=== PATIENT | female | born 1995 | race Caucasian/White ===

== ENCOUNTER 2023-07-25 20:59 | Outpatient (REF) | payer BC, SELFPAY ==
[2023-07-31 12:09] LABS: Age Gdln ACOG Testing Note (.); IGP, rfx Aptima HPV ASCU Note (.)
== END 2023-07-25 21:00 | disposition home or self-care (01) ==
LOC: LAB 20:59
PROVIDERS: Visit Provider Obstetrics & Gynecology
DX: Z01.419 Encounter for gynecological examination (general) (routine) without abnormal findings (principal)
CPT/HCPCS: G0145

== ENCOUNTER 2023-10-12 17:57 | Emergency (ER) | payer BC, SELFPAY ==
[2023-10-12 18:04] VITALS: BP 112/82; PULSE 73; RESP 16; TEMP 37.2; O2SAT 100; BMI 28.3
--- OUTSIDE RECORDS SUMMARY | 2023-10-12 18:07 | XMS_ITS | CCD ---
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 [facility] [address] [place] [id number] [place] Calcium [Mass/volume] in Ser um or PlasmaOrdered By: Debra Koenig on 03-15-2023 Calcium [Mass/Vol] 9.5 mg/dL Normal 8.6-10.3 [facility] Comment on above: Order Comment: Reaso n for Exam Fatigue NOT FASTING .JKW Performed By: #### B 12, FE PRO, [id number], CMP #### [facility] [address] [id number] [facility] Carbon dioxide, total [Moles /volume] in Serum or PlasmaOrdered By: Debra Koenig on 03-15-2023 CO2 [Moles/Vol] 28.8 mmol/L Normal 21.0-31.0 [facility] Comment on above: Order Comment: Reaso n for Exam Fatigue NOT FASTING .JKW Performed By: #### B 12, FE PRO, [id number], CMP #### [facility] [address] [place] [id number] [place] Chloride [Moles/volume] in S sherri or PlasmaOrdered By: Debra Koenig on 03-15-2023 Chloride [Moles/Vol] 107 mmol/L Normal 98-107 [facility] Comment on above: Order Comment: Reaso n for Exam Fatigue NOT FASTING .JKW Performed By: #### B 12, FE PRO, [id number], CMP #### [facility] [address] [place] [id number] [facility] Comprehensive Metabolic Pane trevin 03-15-2023 Albumin [Mass/Vol] 4.542462 g/dL Normal 3.5-5.7 g/dL N [facility] [employer]MP[employer] Other Bilirubin [Mass/Vol] 0.1607499 mg/dL Normal 0.3- 1.0 mg/dL Clint CMP.LY Other Calcium [Mass/Vol] 9.2165945 mg/dL Normal 8.6-10 .3 mg/dL Clint CMP.LY Other CO2 [Moles/Vol] 28.01893682 mmol/L Normal 21.0-3 1.0 mmol/L Clint CMP.LY Other Creatinine [Mass/Vol] 0.58140686 mg/dL Normal 0. 60-1.20 mg/dL Clint CMP.LY Other GFR/1.73 sq M.predicted MDRD (S/P/Bld) [Vol rate/Area] mL/min/{1.73_m2} Normal Clint CMP[facility]LY Other Comment on above: Order Comment: Reaso n for Exam Fatigue NOT FASTING .JKW Performed By: #### B 12, FE PRO, [id number], CMP #### [facility] [address] [place] [address] [facility] Potassium [Moles/Vol] 4.82964122 mmol/L Normal 3 .5-5.1 mmol/L Clint CMP[facility]LY Other Protein [Mass/Vol] 6.004507 g/dL Normal 6.4-8.9 g/dL N [facility] [employer] Other Comprehensive Metabolic Panel 2.1 g/dL Clint CMP.LY Other Albumin [Mass/Vol] 4.7 g/dL Normal 3.5-5.7 [facility] Comment on above: Order Comment: Reaso n for Exam Fatigue NOT FASTING .JKW Performed By: #### B 12, FE PRO, [id number], CMP #### [facility] [address] [place] [address] [place] Creatinine [Mass/volume] in Serum or PlasmaOrdered By: Debra Koenig on 03-15-2023 Creatinine [Mass/Vol] 0.60 mg/dL Normal 0.60-1.20 [facility] Comment on above: Order Comment: Reaso n for Exam Fatigue NOT FASTING .JKW Performed By: #### B 12, FE PRO, [id number], CMP #### [facility] [address] [place] [address] [place] FE PROon 03-15-2023 Ferritin [Mass/Vol] 50.6322552 ng/mL Normal 11.0 -306.8 ng/mL [facility] [employer] Other FE PRO 437 ug/dL Normal 255-450 ug/dL [facility] [employer] Other FE PRO 11.9 % Low 20-50 % [facility] [employer] Other % Iron Saturation 11.9 % Low 20-50 [facility] Comment on above: Order Comment: Reaso n for Exam Fatigue NOT FASTING .JKW Performed By: #### B 12, FE PRO, [id number], CMP #### [facility] [address] [place] [address] [facility] Total Iron Binding Capacity 437 ug/dL Normal 255-450 [facility] Comment on above: Order Comment: Reaso n for Exam Fatigue NOT FASTING .JKW Performed By: #### B 12, FE PRO, [id number], CMP #### [facility] [address] [place] [address] [place] Ferritin [Mass/volume] in Se rum or PlasmaOrdered By: Debra Koenig on 03-15-2023 Ferritin [Mass/Vol] 50.4 ng/mL Normal 11.0-306.8 [facility] Comment on above: Order Comment: Reaso n for Exam Fatigue NOT FASTING .JKW Performed By: #### B 12, FE PRO, [id number], CMP #### [facility] [address] [place] [address] [place] Glucose [Mass/volume] in Ser um or PlasmaOrdered By: Debra Koenig on 03-15-2023 Glucose [Mass/Vol] 89 mg/dL Normal 70-100 [facility] Comment on above: ADA recommended refe rence rangeRandom Glucose Reference Range is dependent on time and content of last meal. Glucose of more than 200 mg/dL in a nonstressed, ambulatory subject supports the diagnosis of Diabetes Mellitus. Order Comment: Reaso n for Exam Fatigue NOT FASTING .JKW Result Comment: [place] om Glucose Reference Range is dependent on time and content of last meal. Glucose of more than 200 mg/dL in a nonstressed, ambulatory subject supports the diagnosis of Diabetes Mellitus. ADA recommended reference range Performed By: #### B 12, FE PRO, [id number], CMP #### [facility] [address] [place] [address] [place] Iron [Mass/volume] in Serum or PlasmaOrdered By: Debra Koenig on 03-15-2023 Iron [Mass/Vol] 52 ug/dL Normal 50-212 [facility] Comment on above: Order Comment: Reaso n for Exam Fatigue NOT FASTING .JKW Performed By: #### B 12, FE PRO, [id number], CMP #### [facility] [address] [place] [id number] [facility] Iron binding capacity [Mass/ volume] in Serum or PlasmaOrdered By: Dbera Koenig on 03-15-2023 Iron binding capacity [Mass/Vol] 437 ug/dL 255-450 [facility] Iron saturation [Mass Fracti on] in Serum or PlasmaOrdered By: Debra Koenig on 03-15-2023 Iron saturation [Mass fraction] 11.9 % 20-50 [facility] No Panel InformationOrdered By: Debra Koenig on 03-15-2023 Estimated GFR (CKD-EPI) > 60.0 mL/Min [facility] Creatinine Clearance (Chem N/A [facility] Potassium [Moles/volume] in Serum or PlasmaOrdered By: Debra Koenig on 03-15-2023 Potassium [Moles/Vol] 4.4 mmol/L Normal 3.5-5.1 [facility] Comment on above: Order Comment: Reaso n for Exam Fatigue NOT FASTING .JKW Performed By: #### B 12, FE PRO, [id number], CMP #### [facility] [address] [place] [address] [place] Protein [Mass/volume] in Ser um or PlasmaOrdered By: Debra Koenig on 03-15-2023 Protein [Mass/Vol] 6.8 g/dL Normal 6.4-8.9 [facility] Comment on above: Order Comment: Reaso n for Exam Fatigue NOT FASTING .JKW Performed By: #### B 12, FE PRO, [id number], CMP #### [facility] [address] Serum globulin measurement b y calculation (mass/volume)Ordered By: Debra Koenig on 03-15-2023 Globulin (S) [Mass/Vol] 2.1 g/dL Normal [facility] Comment on above: Order Comment: Reaso n for Exam Fatigue NOT FASTING .JKW Performed By: #### B 12, FE PRO, [id number], CMP #### [facility] [address] Serum or plasma albumin/glob ulin mass ratioOrdered By: Debra Koenig on 03-15-2023 Albumin/Globulin [Mass ratio] 2.2 {ratio} Normal [facility] Comment on above: Order Comment: Reaso n for Exam Fatigue NOT FASTING .JKW Performed By: #### B 12, FE PRO, [id number], CMP #### [facility] [address] Serum or plasma anion gap de terminationOrdered By: Debra Koenig on 03-15-2023 Anion gap [Moles/Vol] 9.6 mmol/L Normal 6.0-15.0 [facility] Comment on above: Order Comment: Reaso n for Exam Fatigue NOT FASTING .JKW Performed By: #### B 12, FE PRO, [id number], CMP #### [facility] [address] [place] [address] [place] Sodium [Moles/volume] in Ser um or PlasmaOrdered By: Debra Koenig on 03-15-2023 Sodium [Moles/Vol] 141 mmol/L Normal 136-145 [facility] Comment on above: Order Comment: Reaso n for Exam Fatigue NOT FASTING .JKW Performed By: #### B 12, FE PRO, [id number], CMP #### [facility] [address] Transferrin [Mass/volume] in Serum or PlasmaOrdered By: Debra Koenig on 03-15-2023 Transferrin [Mass/Vol] 312 mg/dL Normal 203-362 [facility] Comment on above: Order Comment: Reaso n for Exam Fatigue NOT FASTING .JKW Performed By: #### B 12, FE PRO, [id number], CMP #### [facility] [address] [place] [id number] [facility] Urea nitrogen [Mass/volume] in Serum or PlasmaOrdered By: Debra Koenig on 03-15-2023 Urea nitrogen [Mass/Vol] 12 mg/dL Normal 7-25 [facility] Comment on above: Order Comment: Reaso n for Exam Fatigue NOT FASTING .JKW Performed By: #### B 12, FE PRO, [id number], CMP #### [facility] [address] [place] [id number] [facility] Vitamin B12 ser/plasOrdered By: Debra Koenig on 03-15-2023 Cobalamin (Vitamin B12) [Mass/Vol] 610 pg/mL Normal 180-914 [facility] Comment on above: Order Comment: Reaso n for Exam Fatigue NOT FASTING .JKW Performed By: #### B 12, FE PRO, [id number], CMP #### [facility] [address] [place] [id number] [place] Vitamin D 25 Hydroxy Totalon 03-15-2023 Vitamin D 25 Hydroxy Total 22.5 ng/mL Low 30-100 ng/mL [employer] Other Vitamin D 25 Hydroxy Total 22.5 ng/mL Low 30-100 [facility] Comment on above: Order Comment: Reaso n for Exam Fatigue NOT FASTING .JKW Result Comment: RAJAT MIN D STATUS 25([place])VITAMIN D RANGE (ng/mL) Deficient <20 Insufficient 20 to <30 Sufficient 30 to 100 Reference: Kwabena Antonio, Kirstie COHEN, et al. Evaluation,treatment, and prevention of vitamin D deficiency; an Endocrine Society clinical practice guideline. JCEM. 2010; 96(7):1911-. PERFORMED BY: [facility] [address] [place] [address] BUYER ISMAEL PALMA M.D. Performed By: #### B 12, FE PRO, [id number], CMP #### [facility] [address] Vitamin D+Metabolites [Mass/ volume] in Serum or PlasmaOrdered By: Debra Koenig on 03-15-2023 Vitamin D+Metabolites [Mass/Vol] 22.5 ng/mL 30-100 [facility] Comment on above: VITAMIN D STATUS 25( [place])VITAMIN D RANGE (ng/mL) Deficient <20 Insufficient 20 to <30Sufficient 30 to 100Reference: Kwabena Antonio, Kirstie COHEN, et al. Evaluation,treatment, and prevention of vitamin D deficiency; an Endocrine Society clinical practice guideline. JCEM. 2010; 96(7):1911-30. PAP ACOG PANEL 2: 23 to 31on 07-28-2022 . . Normal [facility] Comment on above: Result Comment: Perf ormed at: BA Performed By: #### L UPUSRF #### [facility] [address] [place] [address] [address] Kenneth Kaye Age Gdln ACOG Testing - Normal [facility] Comment on above: Performed By: #### L UPUSRF #### [facility] [address] [place], [place] [address] Dr. Kenneth Kaye DIAGNOSIS: Comment Normal [facility] Comment on above: Result Comment: NEGA TIVE FOR INTRAEPITHELIAL LESION OR MALIGNANCY. Performed at: BA Performed By: #### L UPUSRF #### [facility] [address] [place], [place] [address] Dr. Kenneth Kaye Methodology: Comment [facility] Comment on above: Result Comment: This liquid based ThinPrep(R) pap test was screened with the use of an image guided system. Performed at: WB Performed By: #### L UPUSRF #### [facility] [address] [place] [address] Dr. Kenneth Kaye Note: Comment Normal [facility] Comment on above: Result Comment: The Pap smear is a screening test designed to aid in the detection of premalignant and malignant conditions of the uterine cervix. It is not a diagnostic procedure and should not be used as the sole means of detecting cervical cancer. Both false-positive and false-negative reports do occur. . Performed at: WB Performed By: #### L UPUSRF #### [facility] [address] [place] [address] Dr. Kenneth Kaye Performed by: Comment Normal [facility] Comment on above: Result Comment: Erinn Borges, School Bus Mechanic (ASCP) Performed at: BA Performed By: #### L UPUSRF #### [facility] [address] [place] [address] Dr. Kenneth Kaye Reflex Criteria: Comment [facility] Comment on above: Result Comment: The HPV DNA reflex criteria were not met with this specimen result therefore, no HPV testing was performed. . Performed at: BA Performed By: #### L UPUSRF #### [facility] [address] [place] [address] Dr. Kenneth Kaye Specimen adequacy: Comment Normal [facility] Comment on above: Result Comment: Sati sfactory for evaluation. Endocervical and/or squamous metaplastic cells (endocervical component) are present. Performed at: BA Performed By: #### L UPUSRF #### [facility] [address] [place] [address] Dr. Kenneth Kaye PREG QUANT HCGon 06-22-2022 HCG QUANT 4 mIU/mL [facility] Comment on above: Performed By: #### L UPUSRF #### [facility] [address] [place] [address] Dr. Kenneth Kaye HCG RANGE SEE BELOW [facility] Comment on above: Result Comment: 5-50 0.2-1 WEEK 50-500 1-2 WEEKS 100-5,000 2-3 WEEKS 500-10,000 3-4 WEEKS 1,000-50,000 4-5 WEEKS 10,000-100,000 5-6 WEEKS 15,000-200,000 6-8 WEEKS 10,000-100,000 2-3 MONTHS Performed By: #### L UPUSRF #### [facility] [address] [place] [address] Dr. Kenneth Kaye PREG QUANT HCGon 06-14-2022 HCG QUANT 18 mIU/mL Normal [facility] Comment on above: Performed By: #### L UPUSRF #### [facility] [address] [place] [address] Dr. Kenneth Kaye HCG RANGE SEE BELOW [facility] Comment on above: Result Comment: 5-50 0.2-1 WEEK 50-500 1-2 WEEKS 100-5,000 2-3 WEEKS 500-10,000 3-4 WEEKS 1,000-50,000 4-5 WEEKS 10,000-100,000 5-6 WEEKS 15,000-200,000 6-8 WEEKS 10,000-100,000 2-3 MONTHS Performed By: #### L UPUSRF #### [facility] [address] [place] [address] Dr. Kenneth Kaye PREG QUANT HCGon 06-07-2022 HCG QUANT 175 mIU/mL Normal [facility] Comment on above: Performed By: #### L UPUSRF #### [facility] [address] [place] [address] Dr. Kenneth Kaye HCG RANGE SEE BELOW Normal [facility] Comment on above: Result Comment: 5-50 0.2-1 WEEK 50-500 1-2 WEEKS 100-5,000 2-3 WEEKS 500-10,000 3-4 WEEKS 1,000-50,000 4-5 WEEKS 10,000-100,000 5-6 WEEKS 15,000-200,000 6-8 WEEKS 10,000-100,000 2-3 MONTHS Performed By: #### L UPUSRF #### [facility] [address] [place] [address] Dr. Kenneth Kaye ANTIPHOSPHOLIPID SYNDROME IL OFILEon 05-26-2022 Anticardiolipin Ab,IgG,Qn <9 Normal 0-14 [facility] Comment on above: Result Comment: Nega tive: <15 Indeterminate: 15 - 20 Low-Med Positive: >20 - 80 High Positive: >80 Performed at: CB Performed By: #### L UPUSRF #### [facility] [address] [place] [address] [address] Kenneth Kaye Anticardiolipin Ab,IgM,Qn 10 MPL U/mL Normal 0-12 [facility] Comment on above: Result Comment: Nega tive: <13 Indeterminate: 13 - 20 Low-Med Positive: >20 - 80 High Positive: >80 Performed at: CB Performed By: #### L UPUSRF #### [facility] [address] [place] [address] [address] Kenneth Kaye APS Panel Interpretation Comment Normal [facility] Comment on above: Result Comment: Plea se refer to the Coag Studies Interp Report. Performed at: BN Performed By: #### L UPUSRF #### [facility] [address] [place] [address] Dr. Kenneth Kaye aPTT Coag (Bld) [Time] 25.9 s Normal 22.9-30.2 Th [facility] Comment on above: Result Comment: Perf ormed at: BN Performed By: #### L UPUSRF #### [facility] [address] [place] [address] Dr. Kenneth Kaye Beta-2 Glycoprotein I Ab, IgM <9 Normal 0-32 [facility] Comment on above: Result Comment: The reference interval reflects a 3SD or 99th percentile interval, which is thought to represent a potentially clinically significant result in accordance with the International Consensus Statement on the classification criteria for definitive antiphospholipid syndrome (APS). J Thromb Haem 2006;4:295-306. Performed at: BN Performed By: #### L UPUSRF #### [facility] [address] [address] [address] Kenneth Kaye dRVVT 36.6 sec Normal 0.0-47.0 [facility] Comment on above: Result Comment: Perf ormed at: BN Performed By: #### L UPUSRF #### [facility] [address] [place] [address] [address] Kenneth Kaye Hex Phase Phospolipid 4 sec Normal 0-11 [facility] Comment on above: Result Comment: Perf ormed at: BN Performed By: #### L UPUSRF #### [facility] [address] [place] [address] [address] Kenneth Kaye INR Coag (PPP) [Relative time] 1.0 {INR} Normal 0.9-1.2 [facility] Comment on above: Result Comment: Refe rence interval is for non-anticoagulated patients. . Suggested INR therapeutic range for Vitamin K antagonist therapy: Standard Dose (moderate intensity therapeutic range): 2.0 - 3.0 Higher intensity therapeutic range 2.5 - 3.5 Performed at: BN Performed By: #### L UPUSRF #### [facility] [address] [place] [address] Dr. Kenneth Kaye PT Coag (PPP) [Time] 10.5 s Normal 9.1-12.0 [facility] Comment on above: Result Comment: Perf ormed at: BN Performed By: #### L UPUSRF #### [facility] [address] [address] [address] Kenneth Kaye Thrombin Time 17.6 sec Normal 0.0-23.0 [facility] Comment on above: Result Comment: Perf ormed at: BN Performed By: #### L UPUSRF #### [facility] [address] [place] [address] Dr. Kenneth Kaye B-2 GLYCOPROTEIN AB IGGon Beta-2 Glycoprotein I Ab, IgG <9 Normal 0-20 [facility] Comment on above: Result Comment: The reference interval reflects a 3SD or 99th percentile interval, which is thought to represent a potentially clinically significant result in accordance with the International Consensus Statement on the classification criteria for definitive antiphospholipid syndrome (APS). J Thromb Haem 2006;4:295-306. Performed By: #### L UPUSRF #### [facility] [address] [place] [address] Dr. Kenneth Kaye Result Comment: The reference interval reflects a 3SD or 99th percentile interval, which is thought to represent a potentially clinically significant result in accordance with the International Consensus Statement on the classification criteria for definitive antiphospholipid syndrome (APS). J Thromb Haem 2006;4:295-306. Performed at: BN B2-GLYCOPROTEIN 1 AB IGMon 0 05-26-2022 Beta-2 Glycoprotein I Ab, IgM <9 Normal 0-32 [facility] Comment on above: Result Comment: The reference interval reflects a 3SD or 99th percentile interval, which is thought to represent a potentially clinically significant result in accordance with the International Consensus Statement on the classification criteria for definitive antiphospholipid syndrome (APS). J Thromb Haem 2006;4:295-306. Performed By: #### B GLYIGM #### [facility] [address] [place] [address] Dr. Kenneth Kaye LUPUS ANTICOAGULANT/CARDIOLI PIN ABon 05-26-2022 Anticardiolipin Ab, IgG <10 Normal [facility] Comment on above: Result Comment: Refe rence Range: Negative: <15 Indeterminate: 15 - 20 Low to medium positive: >20 - 80 High positive: >80 Performed By: #### L UPUCRD #### [facility] [address] [place] [address] Dr. Kenneth Kaye Anticardiolipin Ab, IgM <10 Normal [facility] Comment on above: Result Comment: Refe rence Range: Negative: <13 Indeterminate: 13 - 20 Low to medium positive: >20 - 80 High positive: >80 Performed By: #### L UPUCRD #### [facility] [address] [place] [address] Dr. Kenneth Kaye APTT 1:1 TILE DESIGNER [facility] Comment on above: Result Comment: Test ing Not Indicated This test was developed and its performance characteristics determined by [facility]. It has not been cleared or approved by the [place] Food and Drug Administration. Performed By: #### L UPUCRD #### [facility] [address] [place] [address] Dr. Kenneth Kaye APTT 1:1 Saline NIY Normal [facility] Comment on above: Result Comment: Test ing Not Indicated This test was developed and its performance characteristics determined by [facility]. It has not been cleared or approved by the [place] Food and Drug Administration. Performed By: #### L UPUCRD #### [facility] [address] [address] [address] Kenneth Kaye aPTT Coag (Bld) [Time] 26.1 s Normal [facility] Comment on above: Result Comment: This test has not been validated for monitoring unfractionated heparin therapy. aPTT-based therapeutic ranges for unfractionated heparin therapy have not been established. Consider ordering Heparin anti-Xa (unfractionated). Reference Range: 18 years and older: 22.9 - 30.2 Performed By: #### L UPUCRD #### [facility] [address] [place] [address] Dr. Kenneth Kaye Beta-2 Glycoprotein I, IgA <10 Normal [facility] [facility] Comment on above: Result Comment: The reference interval reflects a 3SD or 99th percentile interval. Reference Range: Negative: <26 Performed By: #### L UPUCRD #### [facility] [address] [place] [address] Dr. Kenneth Kaye Beta-2 Glycoprotein I, IgG <10 Normal [facility] Comment on above: Result Comment: The reference interval reflects a 3SD or 99th percentile interval. Reference Range: Negative: <21 Performed By: #### L UPUCRD #### [facility] [address] [place] [address] Dr. Kenneth Kaye Beta-2 Glycoprotein I, IgM <10 Normal [facility] Comment on above: Result Comment: The reference interval reflects a 3SD or 99th percentile interval. Reference Range: Negative: <33 Performed By: #### L UPUCRD #### [facility] [address] [place] [address] Dr. Kenneth Kaye DRVVT Confirm Seconds NIY Normal [facility] Comment on above: Result Comment: Test ing Not Indicated Performed By: #### L UPUCRD #### [facility] [address] [place] [address] Dr. Kenneth Kaye DRVVT Ratio NIY Normal [facility] Comment on above: Result Comment: Test ing Not Indicated Performed By: #### L UPUCRD #### [facility] [address] [address] [address] Kenneth Kaye DRVVT Screen Seconds 33.3 sec Normal [facility] Comment on above: Result Comment: Refe rence Range: <= 47.0 Performed By: #### L UPUCRD #### [facility] [address] [place] [address] Dr. Kenneth Kaye Hexagonal Phospholipid Neutral 0 sec Normal [facility] Comment on above: Result Comment: This value is NEGATIVE. This is a qualitative assay and is therefore reported as positive for lupus anticoagulant or negative. The quantitative value is provided as an aid in diagnosis. Reference Range: 0 - 11 Performed By: #### L UPUCRD #### [facility] [address] [place] [address] Dr. Kenneth Kaye INR Coag (PPP) [Relative time] 1.0 {INR} Normal [facility] Comment on above: Result Comment: Refe rence Range: >1 month: 0.9 - 1.2 Performed By: #### L UPUCRD #### [facility] [address] [place] [address] Dr. Kenneth Kaye LAC Interpretation Comment Normal [facility] Comment on above: Result Comment: A osito pus anticoagulant is not detected. All antiphospholipid antibodies evaluated are normal. As antibody titers may fluctuate with time, repeat testing may be indicated. Please contact [facility] if further clarification is needed. Performed By: #### L UPUCRD #### [facility] [address] [place] [address] Dr. Kenneth Kaye PT Coag (PPP) [Time] 10.3 s Normal [facility] Comment on above: Result Comment: Refe rence Range: 18 years and older: 9.1 - 12.0 Performed By: #### L UPUCRD #### [facility] [address] [place] [address] Dr. Kenneth Kaye Thrombin Time 17.8 sec Normal The [facility] Comment on above: Result Comment: Refe rence Range: 0.0 - 23.0 Performed By: #### L UPUCRD #### [facility] [address] [address] [address] Kenneth Kaye FACTOR V LEIDEN MUTATION LAURIE LYSISon 05-25-2022 Factor V Leiden Comment Normal [facility] Comment on above: Result Comment: Resu lt: c.1601G>A ([id number]) - Not Detected . This result is not associated with an increased risk for venous thromboembolism. See Additional Clinical Information and Comments. Additional Clinical Information: Venous thromboembolism is a multifactorial disease influenced by genetic, environmental, and circumstantial risk factors. The c.1601G>A (p. [id number]) variant in the F5 gene, commonly referred to as Factor V Leiden, is a genetic risk factor for venous thromboembolism. Heterozygous carriers of this variant have a 6- to 8-fold increased risk for venous thromboembolism. Individuals homozygous for this variant (ie, with a copy of the variant on each chromosome) have an approximately 80-fold increased risk for venous thromboembolism. Individuals who carry both a c.*97G>A variant in the F2 gene and Factor V Leiden have an approximately 20-fold increased risk for venous thromboembolism. Risks are likely to be even higher in more complex genotype combinations involving the F2 c.*97G>A variant and Factor V Leiden (PMID: [id number]). Additional risk factors include but are not limited to: deficiency of protein C, protein S, or antithrombin III, age, male sex, personal or family history of deep vein thromboembolism, smoking, surgery, prolonged immobilization, malignant neoplasm, tamoxifen treatment, raloxifene treatment, oral contraceptive use, hormone replacement therapy, and . Management of thrombotic risk and thrombotic events should follow established guidelines and fit the clinical circumstance. This result cannot predict the occurrence or recurrence of a thrombotic event. . Comment: Genetic counseling is recommended to discuss the potential clinical implications of positive results, as well as recommendations for testing family members. . Genetic Coordinators are available for health care providers to discuss results at [phone]). . Test Details: Variant Analyzed: c.1601G>A (p. [id number]), referred to as Factor V Leiden . Methods/Limitations: DNA analysis of the F5 gene (NM_000130.5) was performed by PCR amplification followed by restriction enzyme analysis. The diagnostic sensitivity is >99%. Results must be combined with clinical information for the most accurate interpretation. Molecular-based testing is highly accurate, but as in any laboratory test, diagnostic errors may occur. False positive or false negative results may occur for reasons that include genetic variants, blood transfusions, bone marrow transplantation, somatic or tissue-specific mosaicism, mislabeled samples, or erroneous representation of family relationships. . This test was developed and its performance characteristics determined by [facility]. It has not been cleared or approved by the Food and Drug Administration. . References: Chad S, Charlee RAPP, Ad R, Silvestre WW, Burke JH; ACM[employer] Professional Practice and Guidelines Committee. Addendum: [employer] consensus statement on factor V Leiden mutation testing. Silke Med. 2020Nov 19. doi: 10.1038/m83312-245-86388-q. PMID: 19419867. . Luh PATTON. Factor V Leiden Thrombophilia. 1998January 28 [Updated 2017Sep 20]. In: Chaz MP, Simon HH, Silvestre RA, et al., editors. Irma(R) [Internet]. [place] ([place]): [facility]; 3712-7413. Available from: https://www.ncbi.nlm.nih.gov/books/XNP0807/ . Alex S, Chalree RAPP, Miah X, Haresh B, Katie EB, aPu P, Gerald CS; [employer] Laboratory Constitutional Law Professor Committee. Venous thromboembolism laboratory testing (factor V Leiden and factor II c.*97G>A), 2018 update: a technical standard of the [employer] and [employer] (ACMG). Silke Med. 2018 Aug;20(12):7203-3901. doi: 10.1038/m02032-369-8410-q. Epub 2017Jun 21. PMID: 24207257. . Tawnya Guadarrama, PhD, FACMG Gloria Resendiz, PhD Liban Ling, PhD, FACMG Stephen Tolbert, PhD, FACMG Jagjit Lan, PhD, FACMG Carie Moyer, PhD, FACMG Maya Heredia, PhD, FACMG Myrna Monte, PhD, FACMG Performed By: #### F [facility] #### [facility] [address] [address] [address] Kenneth Kaye ANTITHROMBIN ACTIVITYon Antithrombin Activity 111 % Normal 75-135 [facility] Comment on above: Result Comment: Dire ct Xa inhibitor anticoagulants such as rivaroxaban, apixaban and edoxaban will lead to spuriously elevated antithrombin activity levels possibly masking a deficiency. Performed By: #### A NTIACT #### [facility] [address] [place] [address] Dr. Kenneth Kaye LUPUS ANTICOAGULANT W/REFLEX on 05-24-2022 aPTT Coag (Bld) [Time] 32.7 s Normal 0.0-51.9 [facility] Comment on above: Performed By: #### L UPUSRF #### [facility] [address] [place] [address] Dr. Kenneth Kaye dRVVT 39.1 sec Normal 0.0-47.0 [facility] Comment on above: Performed By: #### L UPUSRF #### [facility] [address] [place] [address] Dr. Kenneth Kaye Interpretation Comment: Normal [facility] Comment on above: Result Comment: No l upus anticoagulant was detected. Performed By: #### L UPUSRF #### [facility] [address] [place] [address] Dr. Kenneth Kaye PROTEIN C FUNC ACTIVITYon Protein C-Functional 131 % Normal 73-180 [facility] Comment on above: Performed By: #### P RCFACT #### [facility] [address] [place] [address] Dr. Kenneth Kaye PROTEIN S ANTIGENon 05-24-20 22 Protein S, Free 123 % Normal 61-136 [facility] Comment on above: Performed By: #### P RTSAG #### [facility] [address] [place] [address] Dr. Kenneth Kaye Protein S, Total 103 % Normal 60-150 [facility] Comment on above: Result Comment: This test was developed and its performance characteristics determined by [facility]. It has not been cleared or approved by the Food and Drug Administration. Performed By: #### P RTSAG #### [facility] [address] [place] [address] Dr. Kenneth Kaye CBC AUTO DIFFon 05-23-2022 BASO # 0.1 103/ul Normal 0.0-0.1 [facility] Comment on above: Performed By: #### L UPUSRF #### [facility] [address] [place] [address] Dr. Kenneth Kaye Basophils/100 WBC (Bld) 0.5 % Normal 0.2-2.0 [facility] Comment on above: Performed By: #### L UPUSRF #### [facility] [address] [place] [address] Dr. Kenneth Kaye EO # 0.1 103/ul Normal 0.0-0.7 [facility] Comment on above: Performed By: #### L UPUSRF #### [facility] [address] [place] [address] Dr. Kenneth Kaye Eosinophils/100 WBC (Bld) 1.0 % Normal 0.9-7.0 [facility] Comment on above: Performed By: #### L UPUSRF #### [facility] [address] [place] [address] Dr. Kenneth Kaye Erythrocyte distribution width (RBC) [Ratio] 13.1 % Normal 11.0-15.0 [facility] Comment on above: Performed By: #### L UPUSRF #### [facility] [address] [place] [address] Dr. Kenneth Kaye Hematocrit (Bld) [Volume fraction] 38.4 % Normal 36.0-48.0 [facility] Comment on above: Performed By: #### L UPUSRF #### [facility] [address] [place] [address] Dr. Kenneth Kaye Hemoglobin (Bld) [Mass/Vol] 12.8 g/dL Normal 12.0-16.0 [facility] Comment on above: Performed By: #### L UPUSRF #### [facility] [address] [place] [address] Dr. Kenneth Kaye IG # 0.03 10e3/ul Normal 0.00-0.03 [facility] Comment on above: Performed By: #### L UPUSRF #### [facility] [address] [place] [address] Dr. Kenneth Kaye IG % 0.3 % Normal 0.0-0.5 [facility] Comment on above: Performed By: #### L UPUSRF #### [facility] [address] [place] [address] Dr. Kenneth Kaye LYMPH # 2.6 103/ul Normal 1.2-3.8 [facility] Comment on above: Performed By: #### L UPUSRF #### [facility] [address] [place] [address] Dr. Kenneth Kaye Lymphocytes/100 WBC (Bld) 26.7 % Normal 20.5-60.0 [facility] Comment on above: Performed By: #### L UPUSRF #### [facility] [address] [place] [address] Dr. Kenneth Kaye MANUAL DIFF REQ NO Normal [facility] Comment on above: Performed By: #### L UPUSRF #### [facility] [address] [place] [address] Dr. Kenneth Kaey MCH (RBC) [Entitic mass] 29.8 pg Normal 26.7-34.0 [facility] Comment on above: Performed By: #### L UPUSRF #### [facility] [address] [place] [address] Dr. Kenneth Kaye MCHC (RBC) [Mass/Vol] 33.3 g/dL Normal 29.9-35.2 [facility] Comment on above: Performed By: #### L UPUSRF #### [facility] [address] [place] [address] Dr. Kenneth Kaye MCV (RBC) [Entitic vol] 89.3 fL Normal 81.0-99.0 [facility] Comment on above: Performed By: #### L UPUSRF #### [facility] [address] [place] [address] Dr. Kenneth Kaye MONO # 0.5 103/ul Normal 0.3-0.8 [facility] Comment on above: Performed By: #### L UPUSRF #### [facility] [address] [place] [address] Dr. Kenneth Kaye Monocytes/100 WBC (Bld) 5.1 % Normal 1.7-12.0 [facility] Comment on above: Performed By: #### L UPUSRF #### [facility] [address] [place] [address] Dr. Kenneth Kaye NEUT # 6.4 103/ul Normal 1.4-6.5 [facility] Comment on above: Performed By: #### L UPUSRF #### [facility] [address] [place] [address] Dr. Kenneth Kaye Neutrophils/100 WBC (Bld) 66.4 % Normal 43.0-75.0 [facility] Comment on above: Performed By: #### L UPUSRF #### [facility] [address] [place] [address] Dr. Kenneth Kaye Platelet mean volume (Bld) [Entitic vol] 10.4 fL Normal 9.5-13.5 [facility] Comment on above: Performed By: #### L UPUSRF #### [facility] [address] [place] [address] Dr. Kenneth Kaye PLT 243 103/ul Normal 150-450 [facility] Comment on above: Performed By: #### L UPUSRF #### [facility] [address] [place] [address] Dr. Kenneth Kaye RBC 4.30 106/ul Normal 4.20-5.40 [facility] Comment on above: Performed By: #### L UPUSRF #### [facility] [address] [place] [address] Dr. Kenneth Kaye WBC 9.6 103/ul Normal 4.0-11.0 [facility] Comment on above: Performed By: #### L UPUSRF #### [facility] [address] [place] [address] Dr. Kenneth Kaye GLYCOHEMOGLOBIN A1Con 2021 ADA RECOMMENDATION SEE BELOW Normal [facility] Comment on above: Result Comment: ADA RECOMMENDED LIMIT 4.0 - 6.0 ADA THERAPEUTIC TARGET < 7.0 ACTION SUGGESTED > 7.0 Performed By: #### L UPUSRF #### [facility] [address] [address] [address] Kenneth Kaye Glucose [Mass/Vol] 114 mg/dL Normal [facility] Comment on above: Performed By: #### L UPUSRF #### [facility] [address] [address] [address] Kenneth Kaye HbA1c (Bld) [Mass fraction] 5.6 % Normal 4.5-6.2 [facility] Comment on above: Performed By: #### L UPUSRF #### [facility] [address] [place] [address] Dr. Kenneth Kaye PREG QUANT HCGon 05-23-2022 HCG QUANT 938 mIU/mL Normal [facility] Comment on above: Performed By: #### P REGQNT, TSH #### [facility] [address] [place] [address] Dr. Kenneth Kaye HCG RANGE SEE BELOW Normal [facility] Comment on above: Result Comment: 5-50 0.2-1 WEEK 50-500 1-2 WEEKS 100-5,000 2-3 WEEKS 500-10,000 3-4 WEEKS 1,000-50,000 4-5 WEEKS 10,000-100,000 5-6 WEEKS 15,000-200,000 6-8 WEEKS 10,000-100,000 2-3 MONTHS Performed By: #### P REGQNT, TSH #### [facility] [address] [place] [address] Dr. Kenneth Kaye TSHon 05-23-2022 TSH 1.712 uIU/mL Normal 0.358-3.740 [facility] Comment on above: Performed By: #### P REGQNT, TSH #### [facility] [address] [place] [address] Dr. Kenneth Kaye HCG-BETA SUBUNIT QUANTon 08- 30-2022 hCG,Beta Subunit,Qnt,Serum 1530 mIU/mL Normal [facility] Comment on above: Result Comment: Fema le (Non-) 0 - 5 (Postmenopausal) 0 - 8 . Female () Weeks of Gestation 3 6 - 71 4 10 - 750 5 708 - 4365 6 460 - 39974 7 [phone] 8 [phone] 9 [phone] 10 [phone] 12 42708 -[phone] 14 58855 - 76251 15 53667 - 78088 16 7066 - 04830 17 5391 - [phone] 18 7625 - 14064 [employer] ECLIA methodology Performed By: #### H CGSUB #### [facility] [address] [place] [address] Dr. Kenneth Kaye US PREG TVon 05-15-2022 US PREG TV EXAMINATION: US PREG TV HISTORY: Threatened COMPARISON: No relevant comparison available. FINDINGS: GESTATIONAL SAC: Present and normal appearing. POLE: Present. YOLK SAC: Present. CARDIAC: Present.; 95 bpm UTERUS: Small subchorionic hematoma, 1.8 x 0.7 x 0.6 cm. OVARIES: Right: Normal. Left: Corpus lutein cyst CERVIX: 4.2 cm in length and closed. CUL-DE-SAC: Normal. OTHER: None. AGE BY LMP: 6 weeks, 4 days ADRIEN BY LMP: 01/04/2023 AGE BY US CRL: 5 weeks 5 days ADRIEN BY US CRL: 01/10/2023 IMPRESSION: 1. Single live intrauterine as detailed above. Electronically authenticated by: OTIS NGUYEN Date: 2022-05-15 16:56 Normal [facility] Serum or plasma beta choriog onadotropin measurement (units/volume)Ordered By: Bessie Apodaca on 05-12-2022 HCG.beta subunit Qn 1720.00 m[IU]/mL [facility] Comment on above: Approximate Approxim ate hCG Gestational Age Range (mIU/ml) (weeks) 0.2-1 5-50 1-2 50-500 2-3 100-5,000 3-4 500-10,000 4-5 1,000-50,000 5-6 10,000-100,000 6-8 15,000-200,000 8-12 10,000-100,000 Albumin [Mass/volume] in Ser um or PlasmaOrdered By: Russ Persaud on 05-09-2022 Albumin [Mass/Vol] 4.1 g/dL 3.2-5.5 [facility] Basophils Auto (Bld) [#/Vol] Ordered By: Russ Persaud on 05-09-2022 Basophils (Bld) [#/Vol] 0.0 10*3/uL 0.0-0.2 [facility] Basophils/100 WBC Auto (Bld) Ordered By: Russ Persaud on 05-09-2022 Basophils/100 WBC (Bld) 0.4 % . [facility] Bilirubin Test strip Ql (U)O rdered By: Russ Persaud on 05-09-2022 Bilirubin Ql (U) Negative Negative [facility] Blood hemoglobin measurement (mass/volume)Ordered By: Russ Persaud on 05-09-2022 Hemoglobin (Bld) [Mass/Vol] 13.4 g/dL 11.8-15.4 [facility] Blood leukocytes automated c ount (number/volume)Ordered By: Russ Persaud on 05-09-2022 WBC (Bld) [#/Vol] 11.5 10*3/uL 4.5-11.0 [facility] Color Auto (U)Ordered By: Danny Persaud on 05-09-2022 Color (U) Yellow Yellow [facility] Creatinine and Glomerular fi ltration rate.predicted panel (S/P/Bld)Ordered By: Russ Persaud on 05-09-2022 Creatinine [Mass/Vol] 0.61 mg/dL 0.44-1.03 [facility] Eosinophils Auto (Bld) [#/Vo l]Ordered By: Russ Persaud on 05-09-2022 Eosinophils (Bld) [#/Vol] 0.1 10*3/uL 0.0-0.45 [facility] Eosinophils/100 WBC Auto (Bl d)Ordered By: Russ Persaud on 05-09-2022 Eosinophils/100 WBC (Bld) 1.2 % . [facility] Erythrocyte distribution wid th Auto (RBC) [Ratio]Ordered By: Russ Persaud on 05-09-2022 Erythrocyte distribution width (RBC) [Ratio] 13.2 % 11.9-15.3 [facility] Estimated glomerular filtrat ion rate (GFR) non- AmericanOrdered By: Russ Persaud on 05-09-2022 GFR/1.73 sq M.predicted among non-blacks MDRD (S/P/Bld) [Vol rate/Area] > 60 mL/Min [facility] Globulin Calc (S) [Mass/Vol] Ordered By: Russ Persaud on 05-09-2022 Globulin (S) [Mass/Vol] 2.8 g/dL [facility] HCG ( test) IA.rapi d Ql (U)Ordered By: Russ Persaud on 05-09-2022 HCG ( test) Ql (U) Positive [facility] Hematocrit Auto (Bld) [Volum e fraction]Ordered By: Russ Persaud on 05-09-2022 Hematocrit (Bld) [Volume fraction] 40.0 % 34.0-46.4 [facility] Ketones Auto test strip (U) [Mass/Vol]Ordered By: Russ Persaud on 05-09-2022 Ketones (U) [Mass/Vol] Negative Negative Fi [facility] - Hematology and Cell countsOrdered By: Russ Persaud on 05-09-2022 Nucleated RBC/100 WBC (Bld) [Ratio] 0.1 % 0-0.5 [facility] Lymphocytes Auto (Bld) [#/Vo l]Ordered By: Russ Persaud on 05-09-2022 Lymphocytes (Bld) [#/Vol] 3.3 10*3/uL 1.00-4.8 [facility] Lymphocytes/100 WBC Auto (Bl d)Ordered By: Russ Persaud on 05-09-2022 Lymphocytes/100 WBC (Bld) 28.8 % . [facility] MCH Auto (RBC) [Entitic mass ]Ordered By: Russ Persaud on 05-09-2022 MCH (RBC) [Entitic mass] 29.5 pg 24.7-34.3 [facility] MCHC Auto (RBC) [Mass/Vol]Or dered By: uRss Persaud on 05-09-2022 MCHC (RBC) [Mass/Vol] 33.5 g/dL 32.0-35.0 [facility] MCV Auto (RBC) [Entitic vol] Ordered By: Russ Persaud on 05-09-2022 MCV (RBC) [Entitic vol] 88.1 fL 80-100 [facility] Monocytes Auto (Bld) [#/Vol] Ordered By: Russ Persaud on 05-09-2022 Monocytes (Bld) [#/Vol] 0.6 10*3/uL 0.0-0.8 [facility] Monocytes/100 WBC Auto (Bld) Ordered By: Russ Persaud on 05-09-2022 Monocytes/100 WBC (Bld) 5.5 % . [facility] Neutrophils Auto (Bld) [#/Vo l]Ordered By: Russ Persaud on 05-09-2022 Neutrophils (Bld) [#/Vol] 7.4 10*3/uL 1.8-7.7 [facility] Neutrophils/100 WBC Auto (Bl d)Ordered By: Russ Persaud on 05-09-2022 Neutrophils/100 WBC (Bld) 64.1 % . [facility] Nitrite Test strip Ql (U)Ord ered By: Russ Persaud on 05-09-2022 Nitrite Ql (U) Negative Negative [facility] No Panel InformationOrdered By: Russ Persaud on 05-09-2022 Estimated GFR () > 60 mL/Min [facility] Comment on above: GFR estimated refere nce range: According to KDOQI guidelines, <60 ml/min/1.73m2 is sufficient to diagnose a patient with chronic kidney disease. Pharmacy Creatinine Clearance (Chem 135.64 [facility] Platelet mean volume Auto (B ld) [Entitic vol]Ordered By: Russ Persaud on 05-09-2022 Platelet mean volume (Bld) [Entitic vol] 9.3 fL 6.3-10.7 [facility] Platelets Auto (Bld) [#/Vol] Ordered By: Russ Persaud on 05-09-2022 Platelets (Bld) [#/Vol] 236 10*3/uL 150-450 [facility] Protein Auto test strip (U) [Mass/Vol]Ordered By: Russ Persaud on 05-09-2022 Protein (U) [Mass/Vol] Negative Negative [facility] Protein [Mass/volume] in Ser um or PlasmaOrdered By: Russ Persaud on 05-09-2022 Protein [Mass/Vol] 6.9 g/dL 6.1-7.9 [facility] RBC Auto (Bld) [#/Vol]Ordere d By: Russ Persaud on 05-09-2022 RBC (Bld) [#/Vol] 4.54 10*6/uL 3.60-5.00 [facility] Serum or plasma alanine pan otransferase measurement without P-5'-P (enzymatic activiOrdered By: Russ Persaud on 05-09-2022 ALT No additional P-5'-P [Catalytic activity/Vol] 13 U/L 10-60 [facility] Serum or plasma albumin/glob ulin mass ratioOrdered By: Russ Persaud on 05-09-2022 Albumin/Globulin [Mass ratio] 1.5 {ratio} [facility] Serum or plasma alkaline erwin sphatase measurement (enzymatic activity/volume)Ordered By: Russ Persaud on 05-09-2022 ALP [Catalytic activity/Vol] 51 U/L 32-92 [facility] Serum or plasma aspartate am inotransferase measurement (enzymatic activity/volume)Ordered By: Russ Persaud on 05-09-2022 AST [Catalytic activity/Vol] 19 U/L 10-42 [facility] Serum or plasma beta choriog onadotropin measurement (units/volume)Ordered By: Russ Persaud on 05-09-2022 HCG.beta subunit Qn 1593.00 m[IU]/mL [facility] Comment on above: Approximate Approxim ate hCG Gestational Age Range (mIU/ml) (weeks) 0.2-1 5-50 1-2 50-500 2-3 100-5,000 3-4 500-10,000 4-5 1,000-50,000 5-6 10,000-100,000 6-8 15,000-200,000 8-12 10,000-100,000 Serum or plasma calcium daksha urement (mass/volume)Ordered By: Russ Persaud on 05-09-2022 Calcium [Mass/Vol] 9.5 mg/dL 8.2-10.2 [facility] Serum or plasma chloride brett surement (moles/volume)Ordered By: Russ Persaud on 05-09-2022 Chloride [Moles/Vol] 101 mmol/L 95-114 [facility] Serum or plasma glucose daksha urement (mass/volume)Ordered By: Russ Persaud on 05-09-2022 Glucose [Mass/Vol] 98 mg/dL 70-100 [facility] Comment on above: ADA recommended refe rence range Random Glucose Reference Range is dependent on time and content of last meal. Glucose of more than 200 mg/dL in a nonstressed, ambulatory subject supports the diagnosis of Diabetes Mellitus. Serum or plasma potassium me asurement (moles/volume)Ordered By: Russ Persaud on 05-09-2022 Potassium [Moles/Vol] 3.5 mmol/L 3.5-5.1 [facility] Serum or plasma sodium measu rement (moles/volume)Ordered By: Russ Persaud on 05-09-2022 Sodium [Moles/Vol] 136 mmol/L 136-146 [facility] Serum or plasma total biliru bin measurement (mass/volume)Ordered By: Russ Persaud on 05-09-2022 Bilirubin [Mass/Vol] 0.4 mg/dL 0.3-1.2 [facility] Serum or plasma total carbon dioxide measurement (moles/volume)Ordered By: Russ Persaud on 05-09-2022 CO2 [Moles/Vol] 24.4 mmol/L 22.0-30.0 [facility] Serum or plasma urea nitroge n measurement (mass/volume)Ordered By: Russ Persaud on 05-09-2022 Urea nitrogen [Mass/Vol] 10 mg/dL 06-09 [facility] Specific gravity Auto test s trip (U) [Rel density]Ordered By: Russ Persaud on 05-09-2022 Specific gravity (U) [Rel density] 1.026 1.001-1.030 [facility] Urine clarity by refractomet ry automatedOrdered By: Russ Persaud on 05-09-2022 Clarity Refractometry automated (U) Clear Clear [facility] Urine glucose measurement by automated test strip (mass/volume)Ordered By: Russ Persaud on 05-09-2022 Glucose Auto test strip (U) [Mass/Vol] Normal mg/dL Normal [facility] Urine hemoglobin detection b y automated test stripOrdered By: Russ Persaud on 05-09-2022 Hemoglobin Auto test strip Ql (U) Negative Negative [facility] Urine leukocyte esterase det ection by automated test stripOrdered By: Russ Persaud on 05-09-2022 Leukocyte esterase Auto test strip Ql (U) Negative Negative [facility] Urobilinogen Auto test strip (U) [Mass/Vol]Ordered By: Russ Persaud on 05-09-2022 Urobilinogen (U) [Mass/Vol] Normal mg/dL Normal [facility] pH Auto test strip (U)Ordere d By: Russ Persaud on 05-09-2022 pH (U) 6.5 [pH] 5.0-9.0 [facility] Vital Signs Date Time Vital Sign Value Performing Clinician Facility 07-16-2023 08:00-0400 Body height 162.56 cm Debra Koenig Other [facility] Other 07-16-2023 08:00-0400 Body mass index (BMI) [Ratio] 29.37 kg/m2 Debra Koenig Other [facility] Other 07-16-2023 08:00-0400 Body weight 77.61 kg Debra Koenig Other [facility] Other 07-16-2023 08:00-0400 Diastolic blood pressure 76 mm[Hg] Debra Koenig Other [facility] Other 07-16-2023 08:00-0400 Respiratory rate 18 /min Debra Koenig Other [facility] Other 07-16-2023 08:00-0400 SaO2% (BldA) [Mass fraction] 98 % Debracory Koenig Other [facility] Other 07-16-2023 08:00-0400 Systolic blood pressure 128 mm[Hg] Debraemiliano Koenig Other [facility] Other 03-15-2023 08:00-0400 Body height 162.56 cm Debracory Koenig Other [facility] Other 03-15-2023 08:00-0400 Body mass index (BMI) [Ratio] 28.18 kg/m2 Debra Koenig Other [facility] Other 03-15-2023 08:00-0400 Body weight 74.48 kg Debra Koenig Other [facility] Other 03-15-2023 08:00-0400 Diastolic blood pressure 72 mm[Hg] Debra Koenig Other [facility] Other 03-15-2023 08:00-0400 Respiratory rate 18 /min Debra Koenig Other [facility] Other 03-15-2023 08:00-0400 SaO2% (BldA) [Mass fraction] 99 % Debracory Koenig Other [facility] Other 03-15-2023 08:00-0400 Systolic blood pressure 116 mm[Hg] Debra Koenig Other [facility] Other 01-18-2023 09:43-0400 Body height 162.56 cm PHYSICIAN NO [facility] 01-18-2023 09:43-0400 Body temperature 98.3 [degF] PHYSICIAN NO [facility] 01-18-2023 09:43-0400 Body weight 72.35 kg PHYSICIAN NO [facility] 01-18-2023 09:43-0400 Diastolic blood pressure 70 mm[Hg] PHYSICIAN NO [facility] 01-18-2023 09:43-0400 Heart rate 80 /min PHYSICIAN NO [facility] 01-18-2023 09:43-0400 Respiratory rate 18 /min PHYSICIAN NO [facility] 01-18-2023 09:43-0400 SaO2% (BldA) [Mass fraction] 99 % PHYSICIAN NO [facility] 01-18-2023 09:43-0400 Systolic blood pressure 130 mm[Hg] PHYSICIAN NO [facility] 05-12-2022 15:20-0400 Body height 162.56 cm PHYSICIAN NO [facility] 05-12-2022 15:20-0400 Body temperature 98.7 [degF] PHYSICIAN NO [facility] 05-12-2022 15:20-0400 Body weight 72.55 kg PHYSICIAN NO [facility] 05-12-2022 15:20-0400 Diastolic blood pressure 78 mm[Hg] PHYSICIAN NO [facility] 05-12-2022 15:20-0400 Heart rate 98 /min PHYSICIAN NO [facility] 05-12-2022 15:20-0400 Respiratory rate 16 /min PHYSICIAN NO [facility] 05-12-2022 15:20-0400 SaO2% (BldA) [Mass fraction] 99 % PHYSICIAN NO [facility] 05-12-2022 15:20-0400 Systolic blood pressure 115 mm[Hg] PHYSICIAN NO [facility] 05-09-2022 21:15-0400 Diastolic blood pressure 101 mm[Hg] PHYSICIAN NO [facility] 05-09-2022 21:15-0400 Heart rate 107 /min PHYSICIAN NO [facility] 05-09-2022 21:15-0400 Respiratory rate 22 /min PHYSICIAN NO [facility] 05-09-2022 21:15-0400 SaO2% (BldA) [Mass fraction] 88 % PHYSICIAN NO [facility] 05-09-2022 21:15-0400 Systolic blood pressure 204 mm[Hg] PHYSICIAN NO [facility] 05-09-2022 17:09-0400 Body height 162.56 cm PHYSICIAN NO [facility] 05-09-2022 17:090400 Body temperature 98.7 [degF] PHYSICIAN NO [facility] 05-09-2022 17:090400 Body weight 70.3 kg PHYSICIAN NO [facility] Encounters Encounter Date Encounter Type Care Provider Facility Start: 07-18-2023 End: 07-18-2023 ambulatory Debra Petty [facility] Facility:[facility] Start: 07-18-2023 End: 07-18-2023 ambulatory DO Debra Koenig Work Phone: [facility] Work Phone: Start: 07-18-2023 End: 07-18-2023 Patient encounter procedure DO Debra Koenig [facility] Phone: [facility] Start: 07-16-2023 End: 07-16-2023 ambulatory Debra [facility] Other [facility] [employer] Other Start: 07-16-2023 Encounter for genera l adult medical examination without abnormal findings Debra Koenig [facility] Start: 07-16-2023 Periodic preventive med est patient 18-39 yrs Debra Koenig [facility] Start: 03-15-2023 Office outpatient ne w 45 minutes Debra Koenig [facility] Start: 03-15-2023 Telephone encounter Debra Koenig [facility] Start: 03-15-2023 End: 03-15-2023 ambulatory Debra Koenig Facility:[facility] Start: 03-15-2023 End: 03-15-2023 ambulatory PHYSICIAN NO [facility] Work Phone: Start: 03-15-2023 End: 03-15-2023 Patient encounter procedure PHYSICIAN NO [facility] Start: 01-18-2023 End: 01-18-2023 Emergency department patient visit Angelito Kayleen Facility:[facility] Start: 01-18-2023 End: 01-18-2023 Emergency department patient visit PHYSICIAN NO [facility] Work Phone: Start: 07-20-2022 End: 07-20-[address] LISA RITTER Facility:[facility] Start: 06-22-2022 End: 06-23-[address] LISA RITTER Facility:[facility] Start: 06-14-2022 End: 06-15-[address] LISA RITTER Facility:[facility] Start: 06-07-2022 End: 06-08-[address] LISA RITTER Facility:[facility] Start: 05-23-2022 End: 05-24-[address] LISA RITTER Facility:[facility] Start: 05-15-2022 End: 05-16-[address] LISA RITTER Facility:[facility] Start: 05-09-2022 End: 05-09-2022 Emergency department patient visit PHYSICIAN NO [facility] Procedures Date Procedure Procedure Detail Performing Clinician Start: 05-09-2022 Diagnostic ultrasoun d of gravid uterus PHYSICIAN NO FAMILY Start: 05-09-2022 Transvaginal obstetr ic ultrasonography PHYSICIAN NO FAMILY Plan of Treatment Date Care Activity Detail Author Start: 05-12-2022 End: 05-12-2022 Emergency department patient visit Departed Emergency [facility] Room Estradiol (E2) [Mass/volume] in Serum or Plasma [facility] Patient Education [facility] Work Phone: Patient referral [facility] Work Phone: Immunizations Immunization Date Immunization Notes Care Provider Fa cility NEGATED: Highlighted row has not occurred!03-15-2023 influenza, seasonal, injectable Patient Objection Debra Koenig Other [facility] Other Payers Date Payer Category Payer Self-pay 2023 Unknown [id number] 1995 Unknown [id number] 2.16.84 [id number] 1995 Unknown [id number] 2.16.84 [id number] 1997 Unknown [id number] 2.16.84 [id number] 1997 Unknown [id number] 2.16.84 [id number] 1997 Unknown [id number] 2.16.84 [id number] 1997 Unknown [id number] 2.16.84 [id number] 1959 Unknown [id number] Unknown [id number] 2.16.8 [id number] Unknown [id number] 2.16.8 [id number] Unknown [id number] 2.16.8 [id number] Social History Date Type Detail Facility Start: 05-12-2022 End: 01-18-2023 Tobacco smoking status NHIS Never smoked tobacco (finding) [facility] Start: 1995 Sex Assigned At Female F [facility] Sex Assigned At Sex Assigned At Bir th [facility] Other Evaluation note 07-16-2023 Note Date & Type Note Facility 10-30-2023 Evaluation note Encounter Date Diagnosis Assessment Notes Jun, Well adult exam (ICD-10 - Z00.00) Doing well, no issues or concernsUp to date on pap?fam hx of breast cancer in grandmother per patient, discussed starting routine screening with mammogram at age 42No family history of colon cancer, discussed starting routine screening with colonoscopy at age 47UTD on TdaP per patient, declines flu vaccineDiscussed diet and regular exerciseWill check screening lab work today Jun, Weight gain (ICD-10 - R63.5) [facility] Other Evaluation note 03-15-2023 Note Date & Type Note Facility 03-15-2023 Evaluation note Encounter Date Diagnosis Assessment Notes Feb, Fatigue (ICD-10 - R53.83) Discussed that fatigue could be related to underlying depression/anx iety, grief. Discussed options for counseling or medication if this is the case, she will consider. We will obtain lab work to rule out underlying cause or deficiency for fatigue. Reviewed lab work done at 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) Recommend referral to derm for evaluation [facility] Other Evaluation note Note Date & Type Note Facility Evaluation note No assessment information availa [facility] Work Phone: Evaluation note Note Date & Type Note Facility Evaluation note No Information [facility] Other Hospital Discharge instructions Note Date & Type Note Facility Hospital Discharge instructions Additional Instructions Call your PROSTHETIC ASSISTANT Sunday with the results If you have develop severe pain in your pelvis excessive bleeding greater than a pad an hour or any other concerns return to the ER [facility] Work Phone: Chief Complaint and Reason for Visit Chief Complaint 5 wks ,cramp ing,back pain follow up visit Chief Complaint rt wrist /knuckle la c R53.83 Chief Complaint Z00.00 R63.5 Advance Directives No Advanced Directives Records Found Advance Directive Response Recorded Date/ Time Advance Directives No May 09, 2022 8:37pm Summary Purpose Family History No Family History Records FoundNo Family History Records Found Reason for Referral Reason * FU 03/30 mole ch rubina Diagnosis 1 Atypical nevi (D22.9 ) Referral Organization [facility] Family Quiana Chopra Referring Provider First Name Debra Referring Provider Last Name Liberty Referring Provider Specialty Family Medi cine Referred Organization [facility] Referred Provider Xiomara Butcher Referred Address ,[place],[address] Referred Provider Specialty Dermatology Referral Priority Routine General Notes Isi Elliott 01:51:04 PM >referral received and faxed Additional Source Comments Care Teams (unrecognized sec tion and content) Team Status: Inactive Member Role Status Dates PHYSICIAN NO FAMILY Primary Care Provider Active Bessie Apodaca , MACHINING DEPARTMENT SUPERVISOR-BC Emergency Provider Active Team Status: Inactive Member Role Status Dates PHYSICIAN NO FAMILY Primary Care Provider Active Russ Persaud DO Emergency Provider Active Team Status: Active Member Role Status Dates PHYSICIAN NO FAMILY Primary Care Provider Active Team Status: Active Member Role Status Dates Debra Koenig DO Primary Care Provider Active Team Status: Inactive Member Role Status Dates Debra Koenig DO Primary Care Provider, Attending Venkat bazan Active Team Status: Inactive Member Role Status Dates PHYSICIAN NO FAMILY Primary Care Provider Active Agnelito Beyer APRN Emergency Provider Active Goals (unrecognized section and content) Goals may be documented in a n alternate sectionGoals may be documented in an alternate sectionNo InformationNo InformationNo InformationGoals may be documented in an alternate section INFORMATION SOURCE (unrecogn ized section and content) DATE CREATED AUTHOR 07/31/2022 [facility] DATE CREATED AUTHOR AUTHOR'S ORGANIZ ATION 07/19/2023 [facility] REASON FOR VISIT (unrecogniz ed section and content) EST CARElab resultsAWV FOR RECORDS PERTAINING TO PATIENTS WHO ARE OR HAVE BEEN ENROLLED IN A CHEMICAL DEPENDENCY/SUBSTANCEABUSE PROGRAM, SOME INFORMATION MAY BE OMITTED. This clinical summary was aggregated from multiple sources. Caution should be exercised in using it in the provision of clinical care. This summary normalizes information from multiple sources, and as a consequence, information in this document may materially change the coding, format and clinical context of patient data. In addition, data may be omitted in some cases. CLINICAL DECISIONS SHOULD BE BASED ON THE PRIMARY CLINICAL RECORDS. [employer] provides no warranty or guarantee of the accuracy or completeness of information in this document.
--- NOTE | 2023-10-12 18:09 | XR_ITS ---
The [address] [address] Patient Name: LIYA TOLENTINO MRN: [id number] date: 1995 Sex: F Assigned Patient Location: ER Current Patient Location: ED.MAIN Accession/Order Number: [id number] Exam Date: 10/12/2023 18:20 Report Date: 10/12/2023 18:55 At the request of: LAURA MARTINEZ Procedure: XR chest 1V EXAM: XR chest 1V at 1815 hours HISTORY: CP COMPARISON: None. TECHNIQUE: AP upright portable chest x-ray FINDINGS: The heart is not enlarged and the vasculature is not distended. No acute infiltrate, effusion or pneumothorax is identified. The osseous structures are grossly intact. XR/XR chest 1V IMPRESSION: No acute infiltrate or evidence of cardiac decompensation. Direct comparison with a previous study may be helpful in determining the chronicity is findings. Electronically authenticated by: MARINA GOLDEN Date: 10/12/2023 18:55
--- NOTE | 2023-10-12 18:09 | ECG_ITS ---
The [facility] Test Date: 2023-10-12 Pat Name: ILYA TOLENTINO Department: Room: - Gender: Female Respiratory Therapy Manager: : 1995 Requested By: [id number] Order Number: [id number] Reading MD: BENTLEY LAMAS Measurements Intervals [place] Rate: 70 P: 71 GA: 170 QRS: 97 QRSD: 88 T: 58 QT: 408 QTc: 429 Interpretive Statements 1100 Sinus rhythm 1102 Sinus arrhythmia 2420 RSR (QR) in lead V1/V2, consistent with right ventricular conduction delay 7102 Moderate right axis deviation 9130 borderline ECG No previous ECG available for comparison Electronically Signed On 10-14-2023 10:40:33 EST by BENTLEY LAMAS
--- NOTE | 2023-10-12 18:09 | ED.CHESTPAI1 ---
HPI - Chest Pain General Chief Complaint: Chest Pain Stated Complaint: chest pain Time Seen by Provider: 10/12/23 18:05 History of Present Illness HPI narrative: [age] year old female presents for chest pain. She's been having it intermittently for three days. Nothing seems to make it worse or better. She hasn't been under any unusual stress. It goes into her back. No unusual activity or injury. No fever cough or complaints of shortness of breath. Related Data Home Medications Medication Instructions Recorded Confirmed No Known Home Medications 10/12/23 10/12/23 Allergies Allergy/AdvReac Type Severity Reaction Status Date / Time No Known Drug Allergies Allergy Verified 10/12/23 18:04 Review of Systems ROS Narrative A ten point review of systems is negative except as noted above. PFSH PFSH Social History Smoking status: Never smoker Exam Narrative Exam Narrative: Nurses note and vital signs reviewed and patient is not hypoxic. General: The patient appears well and in no apparent distress. Patient is resting comfortably on cart. Skin: Warm, dry, no pallor noted. There is no rash noted. Head: Normocephalic, atraumatic Eye: Normal conjunctiva, no drainage Ears, Nose, Mouth, and Throat: oral mucosa is moist. Nares patent. Cardiovascular: Regular Rate and Rhythm; Chest wall not tender to palpation Respiratory: Patient is in no distress, no accessory muscle use, lungs are clear to auscultation, no wheezing, rales or rhonchi Back: non-tender GI: nontender Musculoskeletal: The patient has no evidence of calf tenderness, no pitting edema, symmetrical pulses noted bilaterally Neurological: A&O, normal speech Psychiatric: Cooperative Constitutional Vital Signs, click to edit/add: Last Vital Signs Temp 98.9 F 10/12/23 18:04 Pulse 73 10/12/23 18:04 Resp 16 10/12/23 18:04 BP 112/82 10/12/23 18:04 Pulse Ox 100 10/12/23 18:04 O2 Del Method Room Air 10/12/23 18:04 Course Vital Signs Vital signs: Vital Signs Temperature 98.9 F 10/12/23 18:04 Pulse Rate 73 10/12/23 18:04 Respiratory Rate 16 10/12/23 18:04 Blood Pressure 112/82 10/12/23 18:04 Pulse Oximetry 100 10/12/23 18:04 Oxygen Delivery Method Room Air 10/12/23 18:04 Temperature 98.9 F 10/12/23 18:04 Pulse Rate 73 10/12/23 18:04 Respiratory Rate 16 10/12/23 18:04 Blood Pressure 112/82 10/12/23 18:04 Pulse Oximetry 100 10/12/23 18:04 Oxygen Delivery Method Room Air 10/12/23 18:04 MDM - Chest Pain MDM Narrative Medical decision making narrative: chest are ordered and the patient is signed out to Dr. Barr. Differential Diagnosis Differential diagnosis: Likely fracture of rib, pneumothorax, atypical chest pain, costochondritis and chest pain Lab Data Labs: Lab Results 10/12/23 Range/Units 18:15 WBC 10.5 (4.0-11.0) 10^3/uL RBC 4.65 (4.20-5.40) 10^6/uL Hgb 13.8 (12.0-16.0) g/dL Hct 41.1 (36.0-48.0) % MCV 88.4 (81.0-99.0) fL MCH 29.7 (26.7-34.0) pg MCHC 33.6 (29.9-35.2) g/dL RDW 12.1 (11.0-15.0) % Plt Count 268 (150-450) 10^3/uL MPV 10.2 (9.5-13.5) fL Neut % (Auto) 55.4 (43.0-75.0) % Lymph % (Auto) 37.3 (20.5-60.0) % [place] % (Auto) 5.2 (1.7-12.0) % Eos % (Auto) 1.4 (0.9-7.0) % Baso % (Auto) 0.5 (0.2-2.0) % Neut # (Auto) 5.8 (1.4-6.5) 10^3/uL Lymph # (Auto) 3.9 H (1.2-3.8) 10^3/uL [place] # (Auto) 0.5 (0.3-0.8) 10^3/uL Eos # (Auto) 0.2 (0.0-0.7) 10^3/uL Baso # (Auto) 0.1 (0.0-0.1) 10^3/uL Abs Immat Gran (auto) 0.02 (0.00-0.03) 10^3/uL Imm/Tot Granulo (auto) 0.2 (0.0-0.5) % Sodium 138 (136-145) mmol/L Potassium 3.5 (3.5-5.1) mmol/L Chloride 103 (98-107) mmol/L Carbon Dioxide 28.2 (21.0-32.0) mmol/L Anion Gap 10.3 BUN 6.0 L (7.0-18.0) mg/dL Creatinine 0.61 (0.55-1.02) mg/dL Est GFR ( Amer) >60 (>=60) Est GFR (Non-Af Amer) >60 (>=60) BUN/Creatinine Ratio 9.8 Glucose 88 (74-106) mg/dL Calcium 9.6 (8.5-10.1) mg/dL Discharge Plan Discharge Patient Disposition: Still a Patient
[2023-10-12 18:26] LABS: Basophils Absolute Auto 0.1 10^3/uL (0.0-0.1); Basophils Percent Auto 0.5 % (0.2-2.0); Eosinophils Absolute Auto 0.2 10^3/uL (0.0-0.7); Eosinophils Percent Auto 1.4 % (0.9-7.0); Hematocrit 41.1 % (36.0-48.0); Hemoglobin 13.8 g/dL (12.0-16.0); Immature Granulocytes Abs Auto 0.02 10^3/uL (0.00-0.03); Immature Granulocytes Pct Auto 0.2 % (0.0-0.5); Lymphocytes Absolute Auto 3.9 10^3/uL (1.2-3.8); Lymphocytes Percent Auto 37.3 % (20.5-60.0); Mean Corpuscular HGB Conc 33.6 g/dL (29.9-35.2); Mean Corpuscular Hemoglobin 29.7 pg (26.7-34.0); Mean Corpuscular Volume 88.4 fL (81.0-99.0); Mean Platelet Volume 10.2 fL (9.5-13.5); Monocytes Absolute Auto 0.5 10^3/uL (0.3-0.8); Monocytes Percent Auto 5.2 % (1.7-12.0); Neutrophils Absolute Auto 5.8 10^3/uL (1.4-6.5); Neutrophils Percent Auto 55.4 % (43.0-75.0); Platelet Count 268 10^3/uL (150-450); Red Blood Count 4.65 10^6/uL (4.20-5.40); Red Cell Distribution Width 12.1 % (11.0-15.0); White Blood Count 10.5 10^3/uL (4.0-11.0)
[2023-10-12 18:35] LABS: Anion Gap 10.3; BUN Creatinine Ratio 9.8; Calcium 9.6 mg/dL (8.5-10.1); Carbon Dioxide 28.2 mmol/L (21.0-32.0); Chloride 103 mmol/L (98-107); Estimated GFR (African America >60 (>=60); Estimated GFR (Non-African Ame >60 (>=60); Glucose 88 mg/dL (74-106); Potassium 3.5 mmol/L (3.5-5.1); Sodium 138 mmol/L (136-145)
[2023-10-12 19:16] VITALS: BP 102/76; PULSE 67; RESP 18; O2SAT 99
== END 2023-10-12 19:18 | disposition home or self-care (01) ==
PROVIDERS: Emergency Medicine; Emergency Provider Student in an Organized Health Care Education/Training Program
DX: K21.9 Gastro-esophageal reflux disease without esophagitis (principal)
CPT/HCPCS: 36415; 71045; 80048; 85025; 93005; 99285

== ENCOUNTER 2023-12-16 13:44 | Emergency (ER) | payer BC, SELFPAY ==
--- OUTSIDE RECORDS SUMMARY | 2023-12-16 13:51 | XMS_ITS | CCD ---
Author Organization [facility] Care Team Providers Care Manufacturing Specialist Name Role Phone NO FAMILY, PHYSICIAN Primary Care Provider Unava ilable DO Russ Persaud Emergency Provider [phone] Paulie, TOE STAPLER- Bessie Monsivais Emergency Provider [phone] STONE, DR GONZALEZ Admitting Unavailable STONE, DR [...] FAMILY, PHYSICIAN Primary Care Provider Unava ilable ALEKSANDAR Beyer Emergency Provider Koenig, DO Debra A Primary Care Provider Liberty, DO Debra A Attending Provider [phone] Koenig, Debra Unavailable Koenig, DO Debra A Primary Care Provider Koenig, DO Debra A Attending Provider [phone] Angelito Beyer Admitting Unavailable Angelito Beyer Attending Unavailable NO FAMILY, PHYSICIAN Primary Care Unavailable Liberty Debra A Admitting Unavailable Liberty, Debra A Primary Care Unavailable Koenig, Debra A Attending Unavailable Debra Koenig Admitting Unavailable Debra [...] 07-18-2023 ALT [Catalytic activity/Vol] 16 U/L 7-52 [facility] Albumin [Mass/volume] in Ser um or Plasma by Bromocresol green (BCG) dye binding methoOrdered By: Debra Koenig on 07-18-2023 Albumin BCG dye [Mass/Vol] 4.7 g/dL 3.5-5.7 [facility] Alkaline phosphatase [Enzyma tic activity/volume] in Serum or PlasmaOrdered By: Debra Koenig on 07-18-2023 ALP [Catalytic activity/Vol] 54 U/L 34-104 [facility] Aspartate aminotransferase [ Enzymatic activity/volume] in Serum or PlasmaOrdered By: Debra Koenig on 07-18-2023 AST [Catalytic activity/Vol] 24 U/L 13-39 [facility] Bilirubin.total [Mass/volume ] in Serum or PlasmaOrdered By: Debra Koenig on 07-18-2023 Bilirubin [Mass/Vol] 0.5 mg/dL 0.3-1.0 [facility] CMP with reflex to A1Con Albumin [Mass/Vol] 4.7 g/dL Normal 3.5-5.7 [facility] Comment on above: Order Comment: Reaso n for Exam Well adult exam Reason for Exam Weight gain Performed By: #### T EST, LIPID, CMP wRFX A1C, TSH3 wRFLX, CBCNO #### [facility] [address] [place] [address] #### ESTRADIOL #### [facility] , Albumin/Globulin [Mass ratio] 2.0 {ratio} Normal [facility] Comment on above: Order Comment: Reaso n for Exam Well adult exam Reason for Exam Weight gain Performed By: #### T EST, LIPID, CMP wRFX A1C, TSH3 wRFLX, CBCNO #### [facility] [address] [place] [address] [place] #### ESTRADIOL #### [facility] , ALP [Catalytic activity/Vol] 54 U/L Normal 34-104 [facility] Comment on above: Order Comment: Reaso n for Exam Well adult exam Reason for Exam Weight gain Performed By: #### T EST, LIPID, CMP wRFX A1C, TSH3 wRFLX, CBCNO #### [facility] [address] [place] [address] #### ESTRADIOL #### [facility] , ALT [Catalytic activity/Vol] 16 U/L Normal 7-52 [facility] Comment on above: Order Comment: Reaso n for Exam Well adult exam Reason for Exam Weight gain Performed By: #### T EST, LIPID, CMP wRFX A1C, TSH3 wRFLX, CBCNO #### [facility] [address] [place] [address] #### ESTRADIOL #### [facility] , Anion gap [Moles/Vol] 12.4 mmol/L Normal 6.0-15.0 [facility] Comment on above: Order Comment: Reaso n for Exam Well adult exam Reason for Exam Weight gain Performed By: #### T EST, LIPID, CMP wRFX A1C, TSH3 wRFLX, CBCNO #### [facility] [address] [place] [address] [place] #### ESTRADIOL #### [facility] , AST [Catalytic activity/Vol] 24 U/L Normal 13-39 [facility] Comment on above: Order Comment: Reaso n for Exam Well adult exam Reason for Exam Weight gain Performed By: #### T EST, LIPID, CMP wRFX A1C, TSH3 wRFLX, CBCNO #### [facility] [address] [place] [address] [place] #### ESTRADIOL #### [facility] , Bilirubin [Mass/Vol] 0.5 mg/dL Normal 0.3-1.0 [facility] Comment on above: Order Comment: Reaso n for Exam Well adult exam Reason for Exam Weight gain Performed By: #### T EST, LIPID, CMP wRFX A1C, TSH3 wRFLX, CBCNO #### [facility] [address] [place] [address] [place] #### ESTRADIOL #### [facility] , Calcium [Mass/Vol] 9.7 mg/dL Normal 8.6-10.3 [facility] Comment on above: Order Comment: Reaso n for Exam Well adult exam Reason for Exam Weight gain Performed By: #### T EST, LIPID, CMP wRFX A1C, TSH3 wRFLX, CBCNO #### [facility] [address] [place] [address] #### ESTRADIOL #### [facility] , Chloride [Moles/Vol] 107 mmol/L Normal 98-107 [facility] Comment on above: Order Comment: Reaso n for Exam Well adult exam Reason for Exam Weight gain Performed By: #### T EST, LIPID, CMP wRFX A1C, TSH3 wRFLX, CBCNO #### [facility] [address] [place] [address] [place] #### ESTRADIOL #### [facility] , CO2 [Moles/Vol] 24.7 mmol/L Normal 21.0-31.0 [facility] Comment on above: Order Comment: Reaso n for Exam Well adult exam Reason for Exam Weight gain Performed By: #### T EST, LIPID, CMP wRFX A1C, TSH3 wRFLX, CBCNO #### [facility] [address] [place] [address] [place] #### ESTRADIOL #### [facility] , Creatinine [Mass/Vol] 0.62 mg/dL Normal 0.60-1.20 [facility] Comment on above: Order Comment: Reaso n for Exam Well adult exam Reason for Exam Weight gain Performed By: #### T EST, LIPID, CMP wRFX A1C, TSH3 wRFLX, CBCNO #### [facility] [address] [place] [address] [place] #### ESTRADIOL #### [facility] , GFR/1.73 sq M.predicted MDRD (S/P/Bld) [Vol rate/Area] mL/min/{1.73_m2} [facility] Comment on above: Order Comment: Reaso n for Exam Well adult exam Reason for Exam Weight gain Performed By: #### T EST, LIPID, CMP wRFX A1C, TSH3 wRFLX, CBCNO #### [facility] [address] [place] [address] [place] #### ESTRADIOL #### [facility] , Globulin (S) [Mass/Vol] 2.3 g/dL Normal [facility] Comment on above: Order Comment: Reaso n for Exam Well adult exam Reason for Exam Weight gain Performed By: #### T EST, LIPID, CMP wRFX A1C, TSH3 wRFLX, CBCNO #### [facility] [address] [place] [address] [place] #### ESTRADIOL #### [facility] , Glucose [Mass/Vol] 93 mg/dL Normal 70-100 [facility] Comment on above: Order Comment: Reaso n for Exam Well adult exam Reason for Exam Weight gain Performed By: #### T EST, LIPID, CMP wRFX A1C, TSH3 wRFLX, CBCNO #### [facility] [address] [place] [address] [place] #### ESTRADIOL #### [facility] , Potassium [Moles/Vol] 4.1 mmol/L Normal 3.5-5.1 [facility] Comment on above: Order Comment: Reaso n for Exam Well adult exam Reason for Exam Weight gain Performed By: #### T EST, LIPID, CMP wRFX A1C, TSH3 wRFLX, CBCNO #### [facility] [address] [place] [address] [place] #### ESTRADIOL #### [facility] , Protein [Mass/Vol] 7.0 g/dL Normal 6.4-8.9 [facility] Comment on above: Order Comment: Reaso n for Exam Well adult exam Reason for Exam Weight gain Performed By: #### T EST, LIPID, CMP wRFX A1C, TSH3 wRFLX, CBCNO #### [facility] [address] [place] [address] [place] #### ESTRADIOL #### [facility] , Sodium [Moles/Vol] 140 mmol/L Normal 136-145 [facility] Comment on above: Order Comment: Reaso n for Exam Well adult exam Reason for Exam Weight gain Performed By: #### T EST, LIPID, CMP wRFX A1C, TSH3 wRFLX, CBCNO #### [facility] [address] [place] [address] [place] #### ESTRADIOL #### [facility] , Urea nitrogen [Mass/Vol] 9 mg/dL Normal 7-25 [facility] Comment on above: Order Comment: Reaso n for Exam Well adult exam Reason for Exam Weight gain Performed By: #### T EST, LIPID, CMP wRFX A1C, TSH3 wRFLX, CBCNO #### [facility] [address] [place] [address] [place] #### ESTRADIOL #### [facility] , Calcium [Mass/volume] in Ser um or PlasmaOrdered By: Debra Koenig on 07-18-2023 Calcium [Mass/Vol] 9.7 mg/dL 8.6-10.3 [facility] Carbon dioxide, total [Moles /volume] in Serum or PlasmaOrdered By: Debra Koenig on 07-18-2023 CO2 [Moles/Vol] 24.7 mmol/L 21.0-31.0 [facility] Chloride [Moles/volume] in S sherri or PlasmaOrdered By: Debra Koenig on 07-18-2023 Chloride [Moles/Vol] 107 mmol/L 98-107 [facility] Cholesterol [Mass/volume] in Serum or PlasmaOrdered By: Debra Koenig on 07-18-2023 Cholesterol [Mass/Vol] 217 mg/dL 140-200 [facility] Comment on above: Chol less than 200 m g/dl low riskChol 201-239 mg/dl borderline riskChol 240 mg/dl and greater high risk Cholesterol in LDL Calc [Mas s/Vol]Ordered By: Debra Koenig on 07-18-2023 Cholesterol in LDL [Mass/Vol] 146 mg/dL 0-100 [facility] Comment on above: LDL ATP III CLASSIFI CATIONLDL less than 100 mg/dL OptimalLDL 100-129 mg/dL Near or above optimalLDL 130-159 mg/dL Borderline highLDL 160-189 mg/dL HighLDL greater than 189 mg/dL Very high Cholesterol in VLDL Calc [Ma ss/Vol]Ordered By: Debra Koenig on 07-18-2023 Cholesterol in VLDL [Mass/Vol] 18 mg/dL [facility] Creatinine [Mass/volume] in Serum or PlasmaOrdered By: Debra Koenig on 07-18-2023 Creatinine [Mass/Vol] 0.62 mg/dL 0.60-1.20 [facility] Erythrocyte distribution wid th Auto (RBC) [Ratio]Ordered By: Debra Koenig on 07-18-2023 Erythrocyte distribution width (RBC) [Ratio] 12.7 % 11.9-15.3 [facility] Estradiolon 07-18-2023 Estradiol 66.8 pg/mL Normal . [facility] Comment on above: Order Comment: Reaso n for Exam Weight gain Result Comment: Adul t Female: Follicular phase 12.5 - 166.0 Ovulation phase 85.8 - 498.0 Luteal phase 43.8 - 211.0 Postmenopausal <6.0 - 54.7 1st trimester 215.0 - >4300.0 Sonia ECLIA methodology Performed at: [facility] [id number] Ground [employer] Contractor: Salvatore Chan PhD, Phone: [phone] PERFORMED BY: [address] [place] [address] PATHOLOGIST IT PROGRAMMER ANALYST ISMAEL PALMA M.D. Performed By: #### T EST, LIPID, CMP wRFX A1C, TSH3 wRFLX, CBCNO #### [facility] [address] [place] [address] [place] #### ESTRADIOL #### [facility] , Globulin Calc (S) [Mass/Vol] Ordered By: Debra Koenig on 07-18-2023 Globulin (S) [Mass/Vol] 2.3 g/dL [facility] Glucose [Mass/volume] in Ser um or PlasmaOrdered By: Debra Koenig on 07-18-2023 Glucose [Mass/Vol] 93 mg/dL 70-100 [facility] Hematocrit Auto (Bld) [Volum e fraction]Ordered By: Debra Koenig on 07-18-2023 Hematocrit (Bld) [Volume fraction] 38.6 % 34.0-46.4 [facility] Hemoglobin [Mass/volume] in BloodOrdered By: Debra Koenig on 07-18-2023 Hemoglobin (Bld) [Mass/Vol] 13.1 g/dL 11.8-15.4 [facility] Hemogram CBC Without Diffon 07-18-2023 Erythrocyte distribution width (RBC) [Ratio] 12.7 % Normal 11.9-15.3 [facility] Comment on above: Order Comment: Reaso n for Exam Well adult exam Performed By: #### T EST, LIPID, CMP wRFX A1C, TSH3 wRFLX, CBCNO #### [facility] [address] [place] [address] [place] #### ESTRADIOL #### [facility] , Hematocrit (Bld) [Volume fraction] 38.6 % Normal 34.0-46.4 [facility] Comment on above: Order Comment: Reaso n for Exam Well adult exam Performed By: #### T EST, LIPID, CMP wRFX A1C, TSH3 wRFLX, CBCNO #### [facility] [address] [place] [address] [place] #### ESTRADIOL #### [facility] , Hemoglobin (Bld) [Mass/Vol] 13.1 g/dL Normal 11.8-15.4 [facility] Comment on above: Order Comment: Reaso n for Exam Well adult exam Performed By: #### T EST, LIPID, CMP wRFX A1C, TSH3 wRFLX, CBCNO #### [facility] [address] [place] [address] #### ESTRADIOL #### [facility] , MCH (RBC) [Entitic mass] 29.9 pg Normal 24.7-34.3 [facility] Comment on above: Order Comment: Reaso n for Exam Well adult exam Performed By: #### T EST, LIPID, CMP wRFX A1C, TSH3 wRFLX, CBCNO #### [facility] [address] [place] [address] #### ESTRADIOL #### [facility] , MCV (RBC) [Entitic vol] 87.9 fL Normal 80-100 [facility] Comment on above: Order Comment: Reaso n for Exam Well adult exam Performed By: #### T EST, LIPID, CMP wRFX A1C, TSH3 wRFLX, CBCNO #### [facility] [address] [place] [address] #### ESTRADIOL #### [facility] , Mean Corpuscular HGB Conc 34.0 g/dL Normal 32.0-35.0 [facility] Comment on above: Order Comment: Reaso n for Exam Well adult exam Performed By: #### T EST, LIPID, CMP wRFX A1C, TSH3 wRFLX, CBCNO #### [facility] [address] [place] [address] [place] #### ESTRADIOL #### [facility] , Platelet mean volume (Bld) [Entitic vol] 9.3 fL Normal 6.3-10.7 [facility] Comment on above: Order Comment: Reaso n for Exam Well adult exam Result Comment: PERF ORMED BY: [address] [place] [address] PATHOLOGIST IT PROGRAMMER ANALYST ISMAEL PALMA M.D. Performed By: #### T EST, LIPID, CMP wRFX A1C, TSH3 wRFLX, CBCNO #### [facility] [address] [place] [address] [place] #### ESTRADIOL #### [facility] , Platelets (Bld) [#/Vol] 290 10*3/uL Normal 150-450 [facility] Comment on above: Order Comment: Reaso n for Exam Well adult exam Performed By: #### T EST, LIPID, CMP wRFX A1C, TSH3 wRFLX, CBCNO #### [facility] [address] [place] [address] [place] #### ESTRADIOL #### [facility] , RBC (Bld) [#/Vol] 4.39 10*6/uL Normal 3.60-5.00 [facility] Comment on above: Order Comment: Reaso n for Exam Well adult exam Performed By: #### T EST, LIPID, CMP wRFX A1C, TSH3 wRFLX, CBCNO #### [facility] [address] [place] [address] [place] #### ESTRADIOL #### [facility] , WBC (Bld) [#/Vol] 7.5 10*3/uL Normal 3.8-11.6 [facility] Comment on above: Order Comment: Reaso n for Exam Well adult exam Performed By: #### T EST, LIPID, CMP wRFX A1C, TSH3 wRFLX, CBCNO #### [facility] [address] [place] [address] [place] #### ESTRADIOL #### [facility] , Leukocytes [#/volume] correc sharan for nucleated erythrocytes in Blood by Automated counOrdered By: Debra Koenig on 07-18-2023 WBC corrected for nucl RBC Auto (Bld) [#/Vol] 7.5 10*3/uL 3.8-11.6 [facility] Lipid Panelon 07-18-2023 Cholesterol [Mass/Vol] 217 mg/dL High 140-200 [facility] Comment on above: Order Comment: Reaso n for Exam Well adult exam Reason for Exam Weight gain Result Comment: Chol less than 200 mg/dl low risk Chol 201-239 mg/dl borderline risk Chol 240 mg/dl and greater high risk Performed By: #### T EST, LIPID, CMP wRFX A1C, TSH3 wRFLX, CBCNO #### [facility] [address] [place] [address] [place] #### ESTRADIOL #### [facility] , Cholesterol in HDL [Mass/Vol] 53 mg/dL Normal 23-92 [facility] Comment on above: Order Comment: Reaso n for Exam Well adult exam Reason for Exam Weight gain Result Comment: HDL CHOL ATP-III CLASSIFICATION Cardiovascular Risk HDL > or equal to 60 mg/dL LOW HDL < 40 mg/dL HIGH Performed By: #### T EST, LIPID, CMP wRFX A1C, TSH3 wRFLX, CBCNO #### [facility] [address] [place] [address] [place] #### ESTRADIOL #### [facility] , Cholesterol.total/Hazel sterol in HDL [Mass ratio] 4.1 {ratio} Normal <5.0 [facility] Comment on above: Order Comment: Reaso n for Exam Well adult exam Reason for Exam Weight gain Performed By: #### T EST, LIPID, CMP wRFX A1C, TSH3 wRFLX, CBCNO #### [facility] [address] [place] [address] [place] #### ESTRADIOL #### [facility] , LDL Cholesterol,Calculated 146 mg/dL High 0-100 [facility] Comment on above: Order Comment: Reaso n [...] CMP wRFX A1C, TSH3 wRFLX, CBCNO #### [facility] [address] [place] [address] [place] #### ESTRADIOL #### [facility] , Triglyceride w/Reflex 92 mg/dL Normal 0-149 [facility] Comment on above: Order Comment: Reaso [...] CMP wRFX A1C, TSH3 wRFLX, CBCNO #### [facility] [address] [place] [address] [place] #### ESTRADIOL #### [facility] , VLDL CHOLESTEROL 18 mg/dL Normal [facility] Comment on above: Order Comment: Reaso n for Exam Well adult exam Reason for Exam Weight gain Performed By: #### T EST, LIPID, CMP wRFX A1C, TSH3 wRFLX, CBCNO #### [facility] [address] [place] [address] [place] #### ESTRADIOL #### [facility] , MCH Auto (RBC) [Entitic mass ]Ordered By: Debra Koenig on 07-18-2023 MCH (RBC) [Entitic mass] 29.9 pg 24.7-34.3 [facility] MCHC Auto (RBC) [Mass/Vol]Or dered By: Debra Koenig on 07-18-2023 MCHC (RBC) [Mass/Vol] 34.0 g/dL 32.0-35.0 [facility] MCV Auto (RBC) [Entitic vol] Ordered By: Debra Koenig on 07-18-2023 MCV (RBC) [Entitic vol] 87.9 fL 80-100 [facility] No Panel InformationOrdered By: Debra Koenig on 07-18-2023 Estimated GFR (CKD-EPI) > 60.0 mL/Min [facility] Creatinine Clearance (Chem N/A [facility] Platelet mean volume Auto (B ld) [Entitic vol]Ordered By: Debra Koenig on 07-18-2023 Platelet mean volume (Bld) [Entitic vol] 9.3 fL 6.3-10.7 [facility] Platelets Auto (Bld) [#/Vol] Ordered By: Debra Koenig on 07-18-2023 Platelets (Bld) [#/Vol] 290 10*3/uL 150-450 [facility] Potassium [Moles/volume] in Serum or PlasmaOrdered By: Debra Koenig on 07-18-2023 Potassium [Moles/Vol] 4.1 mmol/L 3.5-5.1 [facility] Protein [Mass/volume] in Ser um or PlasmaOrdered By: Debra Koenig on 07-18-2023 Protein [Mass/Vol] 7.0 g/dL 6.4-8.9 [facility] RBC Auto (Bld) [#/Vol]Ordere d By: Debra Koenig on 07-18-2023 RBC (Bld) [#/Vol] 4.39 10*6/uL 3.60-5.00 [facility] Serum or plasma albumin/glob ulin mass ratioOrdered By: Debra Koenig on 07-18-2023 Albumin/Globulin [Mass ratio] 2.0 {ratio} [facility] Serum or plasma anion gap de terminationOrdered By: Debra Koenig on 07-18-2023 Anion gap [Moles/Vol] 12.4 mmol/L 6.0-15.0 [facility] Serum or plasma high density lipoprotein (HDL) cholesterol measurementOrdered By: Debra Koenig on 07-18-2023 Cholesterol in HDL [Mass/Vol] 53 mg/dL 23-92 [facility] Comment on above: HDL CHOL ATP-III CLA SSIFICATION Cardiovascular RiskHDL > or equal to 60 mg/dL LOWHDL < 40 mg/dL HIGH Serum or plasma total choles terol/high density lipoprotein (HDL) cholesterol mass ratOrdered By: Debra Koenig on 07-18-2023 Cholesterol.total/Hazel sterol in HDL [Mass ratio] 4.1 {ratio} <5.0 [facility] Sodium [Moles/volume] in Ser um or PlasmaOrdered By: Debra Koenig on 07-18-2023 Sodium [Moles/Vol] 140 mmol/L 136-145 [facility] Testosteroneon 07-18-2023 Testosterone 0.30 ng/mL Normal 0.00-0.75 [facility] Comment on above: Order Comment: Reaso n for Exam Weight gain Result Comment: PERF ORMED BY: [place] [address] PATHOLOGIST IT PROGRAMMER ANALYST ISMAEL PALMA M.D. Performed By: #### T EST, LIPID, CMP wRFX A1C, TSH3 wRFLX, CBCNO #### [facility] [address] [place] [address] #### ESTRADIOL #### [facility] , Testosterone [Mass/volume] i n Serum or PlasmaOrdered By: Debra Koenig on 07-18-2023 Testosterone [Mass/Vol] 0.30 ng/mL 0.00-0.75 [facility] Thyroid Stim Hormone w/Rflxo n 07-18-2023 Thyroid Stim Hormone w/Rflx 1.11 u[iU]/mL Normal 0.45-5.33 [facility] Comment on above: Order Comment: Reaso n for Exam Well adult exam Reason for Exam Weight gain Result Comment: PERF ORMED BY: [place] [address] PATHOLOGIST IT PROGRAMMER ANALYST ISMAEL PALMA M.D. Performed By: #### T EST, LIPID, CMP wRFX A1C, TSH3 wRFLX, CBCNO #### [facility] [address] [place] [address] [place] #### ESTRADIOL #### [facility] , Thyrotropin [Units/volume] i n Serum or PlasmaOrdered By: Debra Koenig on 07-18-2023 TSH Qn 1.11 m[IU]/L 0.45-5.33 [facility] Triglyceride [Mass/volume] i n Serum or PlasmaOrdered By: Debra Koenig on 07-18-2023 Triglyceride [Mass/Vol] 92 mg/dL 0-149 [facility] Comment on above: TRIG ATP III CLASSIF ICATIONTRIG less than 150 mg/dL NormalTRIG 150-199 mg/dL Borderline highTRIG 200-500 mg/dL High TRIG greater than 500 mg/dL Very highStandard traceable to the Center for Disease Conrtrol and Prevention (CDC) test method. Urea nitrogen [Mass/volume] in Serum or PlasmaOrdered By: Debra Koenig on 07-18-2023 Urea nitrogen [Mass/Vol] 9 mg/dL 7-25 [facility] Alanine aminotransferase [En zymatic activity/volume] in Serum or PlasmaOrdered By: Debra Koenig on 03-15-2023 ALT [Catalytic activity/Vol] 10 U/L Normal 7-52 [facility] Comment on above: Order Comment: Reaso n for Exam Fatigue NOT FASTING .JKW Performed By: #### B 12, FE PRO, [id number], CMP #### [facility] [address] Albumin [Mass/volume] in Ser um or Plasma by Bromocresol green (BCG) dye binding methoOrdered By: Debra Koenig on 03-15-2023 Albumin BCG dye [Mass/Vol] 4.7 g/dL 3.5-5.7 [facility] Alkaline phosphatase [Enzyma tic activity/volume] in Serum or PlasmaOrdered By: Debra Koenig on 03-15-2023 ALP [Catalytic activity/Vol] 64 U/L Normal 34-104 [facility] Comment on above: Order Comment: Reaso n for Exam Fatigue NOT FASTING .JKW Performed By: #### B 12, FE PRO, [id number], CMP #### [facility] [address] [place] [address] [place] Aspartate aminotransferase [ Enzymatic activity/volume] in Serum or PlasmaOrdered By: Debra Koenig on 03-15-2023 AST [Catalytic activity/Vol] 17 U/L Normal 13-39 [facility] Comment on above: Order Comment: Reaso n for Exam Fatigue NOT FASTING .JKW Performed By: #### B 12, FE PRO, [id number], CMP #### [facility] [address] Bilirubin.total [Mass/volume ] in Serum or PlasmaOrdered By: Debra Koenig on 03-15-2023 Bilirubin [Mass/Vol] 0.3 mg/dL Normal 0.3-1.0 [facility] Comment on above: Order Comment: Reaso n for Exam Fatigue NOT FASTING .JKW Performed By: #### B 12, FE PRO, [id number], CMP #### [facility] [address] [place] [id number] [place] Calcium [Mass/volume] in Ser um or PlasmaOrdered By: Debra Koenig on 03-15-2023 Calcium [Mass/Vol] 9.5 mg/dL Normal 8.6-10.3 [facility] Comment on above: Order Comment: Reaso n for Exam Fatigue NOT FASTING .JKW Performed By: #### B 12, FE PRO, [id number], CMP #### [facility] [address] [place] [id number] [facility] Carbon dioxide, total [Moles /volume] in Serum or PlasmaOrdered By: Debra Koenig on 03-15-2023 CO2 [Moles/Vol] 28.8 mmol/L Normal 21.0-31.0 [facility] [facility] Comment on above: Order Comment: Reaso n for Exam Fatigue NOT FASTING .JKW Performed By: #### B 12, FE PRO, [id number], CMP #### [facility] [address] [id number] [place] Chloride [Moles/volume] in S sherri or PlasmaOrdered By: Debra Koenig on 03-15-2023 Chloride [Moles/Vol] 107 mmol/L Normal 98-107 [facility] Comment on above: Order Comment: Reaso n for Exam Fatigue NOT FASTING .JKW Performed By: #### B 12, FE PRO, [id number], CMP #### [facility] [address] [id number] [facility] Comprehensive Metabolic Pane trevin 03-15-2023 Albumin [Mass/Vol] 4.074564 g/dL Normal 3.5-5.7 g/dL N [employer] Other Bilirubin [Mass/Vol] 0.7603972 mg/dL Normal 0.3- 1.0 mg/dL [facility] Other Calcium [Mass/Vol] 9.6641079 mg/dL Normal 8.6-10 .3 mg/dL [facility] Other CO2 [Moles/Vol] 28.93334576 mmol/L Normal 21.0-3 1.0 mmol/L [facility] Other Creatinine [Mass/Vol] 0.25049169 mg/dL Normal 0. 60-1.20 mg/dL [facility] Other GFR/1.73 sq M.predicted MDRD (S/P/Bld) [Vol rate/Area] mL/min/{1.73_m2} Normal [facility] Other Comment on above: Order Comment: Reaso n for Exam Fatigue NOT FASTING .JKW Performed By: #### B 12, FE PRO, [id number], CMP #### [facility] [address] [id number] [facility] Potassium [Moles/Vol] 4.71807705 mmol/L Normal 3 .5-5.1 mmol/L [facility] Other Protein [Mass/Vol] 6.358634 g/dL Normal 6.4-8.9 g/dL N [facility] [employer] Other Comprehensive Metabolic Panel 2.1 g/dL [facility] Other Albumin [Mass/Vol] 4.7 g/dL Normal 3.5-5.7 [facility] Comment on above: Order Comment: Reaso n for Exam Fatigue NOT FASTING .JKW Performed By: #### B 12, FE PRO, [id number], CMP #### [facility] [address] [place] [address] [place] Creatinine [Mass/volume] in Serum or PlasmaOrdered By: Debra Koenig on 03-15-2023 Creatinine [Mass/Vol] 0.60 mg/dL Normal 0.60-1.20 [facility] Comment on above: Order Comment: Reaso n for Exam Fatigue NOT FASTING .JKW Performed By: #### B 12, FE PRO, [id number], CMP #### [facility] [address] [id number] [place] FE PROon 03-15-2023 Ferritin [Mass/Vol] 50.7800541 ng/mL Normal 11.0 -306.8 ng/mL [facility] [employer] Other FE PRO 437 ug/dL Normal 255-450 ug/dL [facility] [employer] Other FE PRO 11.9 % Low 20-50 % [facility] [employer] Other % Iron Saturation 11.9 % Low 20-50 [facility] Comment on above: Order Comment: Reaso n for Exam Fatigue NOT FASTING .JKW Performed By: #### B 12, FE PRO, [id number], CMP #### [facility] [address] [id number] [place] Total Iron Binding Capacity 437 ug/dL Normal 255-450 [facility] Comment on above: Order Comment: Reaso n for Exam Fatigue NOT FASTING .JKW Performed By: #### B 12, FE PRO, [id number], CMP #### [facility] [address] [id number] [place] Ferritin [Mass/volume] in Se rum or PlasmaOrdered By: Debra Koenig on 03-15-2023 Ferritin [Mass/Vol] 50.4 ng/mL Normal 11.0-306.8 [facility] Comment on above: Order Comment: Reaso n for Exam Fatigue NOT FASTING .JKW Performed By: #### B 12, FE PRO, [id number], CMP #### [facility] [address] [id number] [place] Glucose [Mass/volume] in Ser um or PlasmaOrdered By: Debra Koenig on 03-15-2023 Glucose [Mass/Vol] 89 mg/dL Normal 70-100 [facility] Comment on above: ADA recommended refe rence rangeRandom Glucose Reference Range is dependent on time and content of last meal. Glucose of more than 200 mg/dL in a nonstressed, ambulatory subject supports the diagnosis of Diabetes Mellitus. Order Comment: Reaso n for Exam Fatigue NOT FASTING .JKW Result Comment: [place] om Glucose Reference Range is dependent on time and content of last meal. Glucose of more than 200 mg/dL in a nonstressed, ambulatory subject supports the diagnosis of Diabetes Mellitus. ADA recommended reference range Performed By: #### B 12, FE PRO, [id number], CMP #### [facility] [address] Iron [Mass/volume] in Serum or PlasmaOrdered By: Debra Koenig on 03-15-2023 Iron [Mass/Vol] 52 ug/dL Normal 50-212 [facility] Comment on above: Order Comment: Reaso n for Exam Fatigue NOT FASTING .JKW Performed By: #### B 12, FE PRO, [id number], CMP #### [facility] [address] [id number] [facility] Iron binding capacity [Mass/ volume] in Serum or PlasmaOrdered By: Debra Koenig on 03-15-2023 Iron binding capacity [Mass/Vol] 437 ug/dL 255-450 [facility] Iron saturation [Mass Fracti on] in Serum or PlasmaOrdered By: Debra Koenig on 03-15-2023 Iron saturation [Mass fraction] 11.9 % 20-50 [facility] No Panel InformationOrdered By: Debra Koenig on 03-15-2023 Estimated GFR (CKD-EPI) > 60.0 mL/Min [facility] Creatinine Clearance (Chem N/A [facility] Potassium [Moles/volume] in Serum or PlasmaOrdered By: Debra Koenig on 03-15-2023 Potassium [Moles/Vol] 4.4 mmol/L Normal 3.5-5.1 [facility] Comment on above: Order Comment: Reaso n for Exam Fatigue NOT FASTING .JKW Performed By: #### B 12, FE PRO, [id number], CMP #### [facility] [address] [id number] [place] Protein [Mass/volume] in Ser um or PlasmaOrdered By: Debra Koenig on 03-15-2023 Protein [Mass/Vol] 6.8 g/dL Normal 6.4-8.9 [facility] Comment on above: Order Comment: Reaso n for Exam Fatigue NOT FASTING .JKW Performed By: #### B 12, FE PRO, [id number], CMP #### [facility] [address] Serum globulin measurement b y calculation (mass/volume)Ordered By: Debra Koenig on 03-15-2023 Globulin (S) [Mass/Vol] 2.1 g/dL Normal [facility] Comment on above: Order Comment: Reaso n for Exam Fatigue NOT FASTING .JKW Performed By: #### B 12, FE PRO, [id number], CMP #### [facility] [address] Serum or plasma albumin/glob ulin mass ratioOrdered By: Debra Koenig on 03-15-2023 Albumin/Globulin [Mass ratio] 2.2 {ratio} Normal [facility] Comment on above: Order Comment: Reaso n for Exam Fatigue NOT FASTING .JKW Performed By: #### B 12, FE PRO, [id number], CMP #### [facility] [address] Serum or plasma anion gap de terminationOrdered By: Debra Koenig on 03-15-2023 Anion gap [Moles/Vol] 9.6 mmol/L Normal 6.0-15.0 [facility] Comment on above: Order Comment: Reaso n for Exam Fatigue NOT FASTING .JKW Performed By: #### B 12, FE PRO, [id number], CMP #### [facility] [address] [place] [address] [place] Sodium [Moles/volume] in Ser um or PlasmaOrdered By: Debra Koenig on 03-15-2023 Sodium [Moles/Vol] 141 mmol/L Normal 136-145 [facility] Comment on above: Order Comment: Reaso n for Exam Fatigue NOT FASTING .JKW Performed By: #### B 12, FE PRO, [id number], CMP #### [facility] [address] [place] [address] [place] Transferrin [Mass/volume] in Serum or PlasmaOrdered By: Debra Koenig on 03-15-2023 Transferrin [Mass/Vol] 312 mg/dL Normal 203-362 [facility] Comment on above: Order Comment: Reaso n for Exam Fatigue NOT FASTING .JKW Performed By: #### B 12, FE PRO, [id number], CMP #### [facility] [address] Urea nitrogen [Mass/volume] in Serum or PlasmaOrdered By: Debra Koenig on 03-15-2023 Urea nitrogen [Mass/Vol] 12 mg/dL Normal 7-25 [facility] Comment on above: Order Comment: Reaso n for Exam Fatigue NOT FASTING .JKW Performed By: #### B 12, FE PRO, [id number], CMP #### [facility] [address] Vitamin B12 ser/plasOrdered By: Debra Koenig on 03-15-2023 Cobalamin (Vitamin B12) [Mass/Vol] 610 pg/mL Normal 180-914 [facility] Comment on above: Order Comment: Reaso n for Exam Fatigue NOT FASTING .JKW Performed By: #### B 12, FE PRO, [id number], CMP #### [facility] [address] [id number] [facility] Vitamin D 25 Hydroxy Totalon 03-15-2023 Vitamin D 25 Hydroxy Total 22.5 ng/mL Low 30-100 ng/mL [facility] Other Vitamin D 25 Hydroxy Total 22.5 ng/mL Low 30-100 [facility] Comment on above: Order Comment: Reaso n for Exam Fatigue NOT FASTING .JKW Result Comment: RAJAT MIN D STATUS 25(OH)VITAMIN D RANGE (ng/mL) Deficient <20 Insufficient 20 to <30 Sufficient 30 to 100 Reference: Teja MF,[place], Kirstie COHEN, et al. Evaluation,treatment, and prevention of vitamin D deficiency; an Endocrine Society clinical practice guideline. JCEM. 2010; 96(7):1911-30. PERFORMED BY: [facility] [address] [place] [address] PATHOLOGIST IT PROGRAMMER ANALYST ISMAEL PALMA M.D. Performed By: #### B 12, FE PRO, [id number], CMP #### [facility] [address] Vitamin D+Metabolites [Mass/ volume] in Serum or PlasmaOrdered By: Debra Koenig on 03-15-2023 Vitamin D+Metabolites [Mass/Vol] 22.5 ng/mL 30-100 [facility] Comment on above: VITAMIN D STATUS 25( [place])VITAMIN D RANGE (ng/mL) Deficient <20 Insufficient 20 to <30Sufficient 30 to 100Reference: Teja MF,[place], Kirstie COHEN, et al. Evaluation,treatment, and prevention of vitamin D deficiency; an Endocrine Society clinical practice guideline. JCEM. 2010; 96(7):1911-30. PAP ACOG PANEL 2: 23 to 31on 07-28-2022 . . Normal [facility] Comment on above: Result Comment: Perf ormed at: BA Performed By: #### L UPUSRF #### [facility] [address] [address] [address] Kenneth Kaye Age Gdln ACOG Testing - Normal [facility] Comment on above: Performed By: #### L UPUSRF #### [facility] [address] [address] [address] Kenneth Kaye DIAGNOSIS: Comment Normal [facility] Comment on above: Result Comment: NEGA TIVE FOR INTRAEPITHELIAL LESION OR MALIGNANCY. Performed at: BA Performed By: #### L UPUSRF #### [facility] [address] [address] [address] Kenneth Kaye Methodology: Comment [facility] Comment on above: Result Comment: This liquid based ThinPrep(R) pap test was screened with the use of an image guided system. Performed at: WB Performed By: #### L UPUSRF #### [facility] [address] [place] [address] Dr. Kenneth Kaye Note: Comment Normal [facility] Comment on above: Result Comment: The Pap smear is a screening test designed to aid in the detection of premalignant and malignant conditions of the uterine cervix. It is not a diagnostic procedure and should not be used as the sole means of detecting cervical cancer. Both false-positive and false-negative reports do occur. . Performed at: WB Performed By: #### L UPUSRF #### [facility] [address] [place] [address] Dr. Kenneth Kaye Performed by: Comment Normal [facility] Comment on above: Result Comment: Erinn Borges, Supervisor Fine Grading (ASCP) Performed at: BA Performed By: #### L UPUSRF #### [facility] [address] [place] [address] Dr. Kenneth Kaye Reflex Criteria: Comment Normal [facility] Comment on above: Result Comment: The HPV DNA reflex criteria were not met with this specimen result therefore, no HPV testing was performed. . Performed at: BA Performed By: #### L UPUSRF #### [facility] [address] [place] [address] Dr. Kenneth Kaye Specimen adequacy: Comment Normal [facility] Comment on above: Result Comment: Sati sfactory for evaluation. Endocervical and/or squamous metaplastic cells (endocervical component) are present. Performed at: BA Performed By: #### L UPUSRF #### [facility] [address] [place] [address] Dr. Kenneth Kaye PREG QUANT HCGon 06-22-2022 HCG QUANT 4 mIU/mL [facility] Comment on above: Performed By: #### L UPUSRF #### [facility] [address] [place] [address] Dr. Kenneth Kaye HCG RANGE SEE BELOW [facility] Comment on above: Result Comment: 5-50 0.2-1 WEEK 50-500 1-2 WEEKS 100-5,000 2-3 WEEKS 500-10,000 3-4 WEEKS 1,000-50,000 4-5 WEEKS 10,000-100,000 5-6 WEEKS 15,000-200,000 6-8 WEEKS 10,000-100,000 2-3 MONTHS Performed By: #### L UPUSRF #### [facility] [address] [place] [address] Dr. Kenneth Kaye PREG QUANT HCGon 06-14-2022 HCG QUANT 18 mIU/mL Normal [facility] Comment on above: Performed By: #### L UPUSRF #### [facility] [address] [place] [address] Dr. Kenneth Kaye HCG RANGE SEE BELOW Normal [facility] Comment on above: Result Comment: 5-50 0.2-1 WEEK 50-500 1-2 WEEKS 100-5,000 2-3 WEEKS 500-10,000 3-4 WEEKS 1,000-50,000 4-5 WEEKS 10,000-100,000 5-6 WEEKS 15,000-200,000 6-8 WEEKS 10,000-100,000 2-3 MONTHS Performed By: #### L UPUSRF #### [facility] [address] [place] [address] Dr. Kenneth Kaye PREG QUANT HCGon 06-07-2022 HCG QUANT 175 mIU/mL Normal [facility] Comment on above: Performed By: #### L UPUSRF #### [facility] [address] [place] [address] Dr. Kenneth Kaye HCG RANGE SEE BELOW Normal [facility] Comment on above: Result Comment: 5-50 0.2-1 WEEK 50-500 1-2 WEEKS 100-5,000 2-3 WEEKS 500-10,000 3-4 WEEKS 1,000-50,000 4-5 WEEKS 10,000-100,000 5-6 WEEKS 15,000-200,000 6-8 WEEKS 10,000-100,000 2-3 MONTHS Performed By: #### L UPUSRF #### [facility] [address] [place] [address] Dr. Kenneth Kaye ANTIPHOSPHOLIPID SYNDROME CT OFILEon 05-26-2022 Anticardiolipin Ab,IgG,Qn <9 Normal 0-14 [facility] Comment on above: Result Comment: Nega tive: <15 Indeterminate: 15 - 20 Low-Med Positive: >20 - 80 High Positive: >80 Performed at: CB Performed By: #### L UPUSRF #### [facility] [address] [address] [address] Kenneth Kaye Anticardiolipin Ab,IgM,Qn 10 MPL U/mL Normal 0-12 [facility] Comment on above: Result Comment: Nega tive: <13 Indeterminate: 13 - 20 Low-Med Positive: >20 - 80 High Positive: >80 Performed at: CB Performed By: #### L UPUSRF #### [facility] [address] [address] [address] Kenneth Kaye APS Panel Interpretation Comment Normal [facility] Comment on above: Result Comment: Plea se refer to the Coag Studies Interp Report. Performed at: BN Performed By: #### L UPUSRF #### [facility] [address] [place] [address] Dr. Kenneth Kaye aPTT Coag (Bld) [Time] 25.9 s Normal 22.9-30.2 Th [facility] Comment on above: Result Comment: Perf ormed at: BN Performed By: #### L UPUSRF #### [facility] [address] [place] [address] Dr. Kenneth Kaye Beta-2 Glycoprotein I Ab, IgM <9 Normal 0-32 [facility] Comment on above: Result Comment: The reference interval reflects a 3SD or 99th percentile interval, which is thought to represent a potentially clinically significant result in accordance with the International Consensus Statement on the classification criteria for definitive antiphospholipid syndrome (APS). J Thromb Haem 2006;4:295-306. Performed at: BN Performed By: #### L UPUSRF #### [facility] [address] [address] [address] Kenneth Kaye dRVVT 36.6 sec Normal 0.0-47.0 [facility] Comment on above: Result Comment: Perf ormed at: BN Performed By: #### L UPUSRF #### [facility] [address] [address] [address] Kenneth Kaye Hex Phase Phospolipid 4 sec Normal 0-11 [facility] Comment on above: Result Comment: Perf ormed at: BN Performed By: #### L UPUSRF #### [facility] [address] [place] [address] Dr. Kenneth Kaye INR Coag (PPP) [Relative time] 1.0 {INR} Normal 0.9-1.2 [facility] Comment on above: Result Comment: Refe rence interval is for non-anticoagulated patients. . Suggested INR therapeutic range for Vitamin K antagonist therapy: Standard Dose (moderate intensity therapeutic range): 2.0 - 3.0 Higher intensity therapeutic range 2.5 - 3.5 Performed at: BN Performed By: #### L UPUSRF #### [facility] [address] [place] [address] Dr. Kenneth Kaye PT Coag (PPP) [Time] 10.5 s Normal 9.1-12.0 [facility] Comment on above: Result Comment: Perf ormed at: BN Performed By: #### L UPUSRF #### [facility] [address] [place] [address] Dr. Kenneth Kaye Thrombin Time 17.6 sec Normal 0.0-23.0 [facility] Comment on above: Result Comment: Perf ormed at: BN Performed By: #### L UPUSRF #### [facility] [address] [place] [address] Dr. Kenneth Kaye B-2 GLYCOPROTEIN AB IGGon Beta-2 Glycoprotein I Ab, IgG <9 Normal 0-20 [facility] Comment on above: Result Comment: The reference interval reflects a 3SD or 99th percentile interval, which is thought to represent a potentially clinically significant result in accordance with the International Consensus Statement on the classification criteria for definitive antiphospholipid syndrome (APS). J Thromb Haem 2006;4:295-306. Performed By: #### L UPUSRF #### [facility] [address] [place] [address] Dr. Kenneth Kaye Result Comment: The reference interval reflects a 3SD or 99th percentile interval, which is thought to represent a potentially clinically significant result in accordance with the International Consensus Statement on the classification criteria for definitive antiphospholipid syndrome (APS). J Thromb Haem 2006;4:295-306. Performed at: BN B2-GLYCOPROTEIN 1 AB IGMon 0 05-26-2022 Beta-2 Glycoprotein I Ab, IgM <9 Normal 0-32 [facility] Comment on above: Result Comment: The reference interval reflects a 3SD or 99th percentile interval, which is thought to represent a potentially clinically significant result in accordance with the International Consensus Statement on the classification criteria for definitive antiphospholipid syndrome (APS). J Thromb Haem 2006;4:295-306. Performed By: #### B GLYIGM #### [facility] [address] [place] [address] Dr. Kenneth Kaye LUPUS ANTICOAGULANT/CARDIOLI PIN ABon 05-26-2022 Anticardiolipin Ab, IgG <10 Normal [facility] Comment on above: Result Comment: Refe rence Range: Negative: <15 Indeterminate: 15 - 20 Low to medium positive: >20 - 80 High positive: >80 Performed By: #### L UPUCRD #### [facility] [address] [place] [address] Dr. Kenneth Kaye Anticardiolipin Ab, IgM <10 Normal [facility] Comment on above: Result Comment: Refe rence Range: Negative: <13 Indeterminate: 13 - 20 Low to medium positive: >20 - 80 High positive: >80 Performed By: #### L UPUCRD #### [facility] [address] [place] [address] Dr. Kenneth Kaye APTT 1:1 [facility] Comment on above: Result Comment: Test ing Not Indicated This test was developed and its performance characteristics determined by [facility]. It has not been cleared or approved by the Food and Drug Administration. Performed By: #### L UPUCRD #### [facility] [address] [place] [address] Dr. Kenneth Kaye APTT 1:1 [facility] Comment on above: Result Comment: Test ing Not Indicated This test was developed and its performance characteristics determined by [facility]. It has not been cleared or approved by the [place] Food and Drug Administration. Performed By: #### L UPUCRD #### [facility] [address] [place] [address] Dr. Kenneth Kaye aPTT Coag (Bld) [Time] 26.1 s Normal Th e [facility] Comment on above: Result Comment: This test has not been validated for monitoring unfractionated heparin therapy. aPTT-based therapeutic ranges for unfractionated heparin therapy have not been established. Consider ordering Heparin anti-Xa (unfractionated). Reference Range: 18 years and older: 22.9 - 30.2 Performed By: #### L UPUCRD #### [facility] [address] [place] [address] Dr. Kenneth Kaye Beta-2 Glycoprotein I, IgA <10 Normal [facility] Comment on above: Result Comment: The reference interval reflects a 3SD or 99th percentile interval. Reference Range: Negative: <26 Performed By: #### L UPUCRD #### [facility] [address] [place] [address] Dr. Kenneth Kaye Beta-2 Glycoprotein I, IgG <10 Normal [facility] Comment on above: Result Comment: The reference interval reflects a 3SD or 99th percentile interval. Reference Range: Negative: <21 Performed By: #### L UPUCRD #### [facility] [address] [place] [address] Dr. Kenneth Amaro2 Glycoprotein I, IgM <10 Normal [facility] Comment on above: Result Comment: The reference interval reflects a 3SD or 99th percentile interval. Reference Range: Negative: <33 Performed By: #### L UPUCRD #### [facility] [address] [place] [address] Dr. Kenneth Kaye DRVVT Confirm Seconds NIY Normal [facility] Comment on above: Result Comment: Test ing Not Indicated Performed By: #### L UPUCRD #### [facility] [address] [place] [address] Dr. Kenneth Kaye DRVVT Ratio NIY Normal [facility] Comment on above: Result Comment: Test ing Not Indicated Performed By: #### L UPUCRD #### [facility] [address] [place] [address] Dr. Yilan Kaye DRVVT Screen Seconds 33.3 sec Normal [facility] Comment on above: Result Comment: Refe rence Range: <= 47.0 Performed By: #### L UPUCRD #### [facility] [address] [address] [address] Kenneth Kaye Hexagonal Phospholipid Neutral 0 sec Normal [facility] Comment on above: Result Comment: This value is NEGATIVE. This is a qualitative assay and is therefore reported as positive for lupus anticoagulant or negative. The quantitative value is provided as an aid in diagnosis. Reference Range: 0 - 11 Performed By: #### L UPUCRD #### [facility] [address] [address] [address] Kenneth Kaye INR Coag (PPP) [Relative time] 1.0 {INR} Normal [facility] Comment on above: Result Comment: Refe rence Range: >1 month: 0.9 - 1.2 Performed By: #### L UPUCRD #### [facility] [address] [place] [address] Dr. Kenneth Kaye LAC Interpretation Comment Normal [facility] Comment on above: Result Comment: A osito pus anticoagulant is not detected. All antiphospholipid antibodies evaluated are normal. As antibody titers may fluctuate with time, repeat testing may be indicated. Please contact [facility] if further clarification is needed. Performed By: #### L UPUCRD #### [facility] [address] [place] [address] Dr. Kenneth Kaye PT Coag (PPP) [Time] 10.3 s Normal [facility] Comment on above: Result Comment: Refe rence Range: 18 years and older: 9.1 - 12.0 Performed By: #### L UPUCRD #### [facility] [address] [address] [address] Kenneth Kaye Thrombin Time 17.8 sec Normal [facility] Comment on above: Result Comment: Refe rence Range: 0.0 - 23.0 Performed By: #### L UPUCRD #### [facility] [address] [address] [address] Kenneth Kaye FACTOR V LEIDEN MUTATION LAURIE LYSISon 05-25-2022 Factor V Leiden Comment Normal [facility] Comment on above: Result Comment: Resu lt: c.1601G>A ([id number]) - Not Detected . This result is not associated with an increased risk for venous thromboembolism. See Additional Clinical Information and Comments. Additional Clinical Information: Venous thromboembolism is a multifactorial disease influenced by genetic, environmental, and circumstantial risk factors. The c.1601G>A (p. [id number]) variant in the F5 gene, commonly referred [...] c.*97G>A variant and Factor V Leiden (PMID: 11156679). Additional risk factors include but are not [...] health care providers to discuss results at [phone]). . Test Details: Variant Analyzed: c.1601G>A (p. [id number]), referred to as Factor V Leiden . [...] developed and its performance characteristics determined by [facility]. It has not been cleared or approved by the Food and Drug Administration. . References: Chad S, Charlee RAPP, Ad R, Silvestre WW, Burke JH; [facility] Professional Practice and Guidelines Committee. Addendum: [employer] consensus statement on factor V Leiden mutation testing. Silke Med. 2020Nov 19. doi: 10.1038/c77977-640-91059-l. PMID: 92060683. . Luh PATTON. Factor V Leiden Thrombophilia. 1998January 28 [Updated 2017Sep 20]. In: Chaz MP, Simon HH, Silvestre RA, et al., editors. Irma(R) [Internet]. [place] ([place]): [facility]; 3963-7310. Available from: https://www.ncbi.nlm.nih.gov/books/HWL7506/ . Alex S, Charlee RAPP, Miah X, Haresh B, Katie EB, Pau P, Gerald CS; [facility] Laboratory Pastor Committee. Venous thromboembolism laboratory testing (factor V Leiden and factor II c.*97G>A), 2018 update: a technical standard of the [employer] ([facility]). Silke Med. 2018 Aug;20(12):7715-2756. doi: 10.1038/i72742-206-6856-u. Epub 2017Jun 21. PMID: 50853137. . Tawnya Guadarrama, PhD, FACMG Gloria Resendiz, PhD Liban Ling, PhD, FACMG Stephen Tolbert, PhD, FACMG Jagjit Lan, PhD, FACMG Carie Moyer, PhD, FACMG Maya Heredia, PhD, FACMG Myrna Monte, PhD, FACMG Performed By: #### F [facility] #### [facility] [address] [place] [address] Dr. Kenneth Kaye ANTITHROMBIN ACTIVITYon 09-0 Antithrombin Activity 111 % Normal 75-135 [facility] Comment on above: Result Comment: Dire ct Xa inhibitor anticoagulants such as rivaroxaban, apixaban and edoxaban will lead to spuriously elevated antithrombin activity levels possibly masking a deficiency. Performed By: #### A NTIACT #### [facility] [address] [place] [address] Dr. Kenneth Kaye LUPUS ANTICOAGULANT W/REFLEX on 05-24-2022 aPTT Coag (Bld) [Time] 32.7 s Normal 0.0-51.9 [facility] Comment on above: Performed By: #### L UPUSRF #### [facility] [address] [place] [address] Dr. Kenneth Kaye dRVVT 39.1 sec Normal 0.0-47.0 [facility] Comment on above: Performed By: #### L UPUSRF #### [facility] [address] [place] [address] Dr. Kenneth Kaye Interpretation Comment: Normal [facility] Comment on above: Result Comment: No l upus anticoagulant was detected. Performed By: #### L UPUSRF #### [facility] [address] [place] [address] Dr. Kenneth Kaye PROTEIN C FUNC ACTIVITYon Protein C-Functional 131 % Normal 73-180 [facility] Comment on above: Performed By: #### P RCFACT #### [facility] [address] [place] [address] Dr. Kenneth Kaye PROTEIN S ANTIGENon 05-24-20 22 Protein S, Free 123 % Normal 61-136 [facility] Comment on above: Performed By: #### P RTSAG #### [facility] [address] [place] [address] Dr. Kenneth Kaye Protein S, Total 103 % Normal 60-150 [facility] Comment on above: Result Comment: This test was developed and its performance characteristics determined by [facility]. It has not been cleared or approved by the Food and Drug Administration. Performed By: #### P RTSAG #### [facility] [address] [place] [address] Dr. Kenneth Kaye CBC AUTO DIFFon 05-23-2022 BASO # 0.1 103/ul Normal 0.0-0.1 [facility] Comment on above: Performed By: #### L UPUSRF #### [facility] [address] [place] [address] Dr. Kenneth Kaye Basophils/100 WBC (Bld) 0.5 % Normal 0.2-2.0 [facility] Comment on above: Performed By: #### L UPUSRF #### [facility] [address] [place] [address] Dr. Kenneth Kaye EO # 0.1 103/ul Normal 0.0-0.7 [facility] Comment on above: Performed By: #### L UPUSRF #### [facility] [address] [place] [address] Dr. Kenneth Kaye Eosinophils/100 WBC (Bld) 1.0 % Normal 0.9-7.0 [facility] Comment on above: Performed By: #### L UPUSRF #### [facility] [address] [place] [address] Dr. Kenneth Kaye Erythrocyte distribution width (RBC) [Ratio] 13.1 % Normal 11.0-15.0 [facility] Comment on above: Performed By: #### L UPUSRF #### [facility] [address] [place] [address] Dr. Kenneth Kaye Hematocrit (Bld) [Volume fraction] 38.4 % Normal 36.0-48.0 [facility] Comment on above: Performed By: #### L UPUSRF #### [facility] [address] [place] [address] Dr. Kenneth Kaye Hemoglobin (Bld) [Mass/Vol] 12.8 g/dL Normal 12.0-16.0 [facility] Comment on above: Performed By: #### L UPUSRF #### [facility] [address] [place] [address] Dr. Kenneth Kaye IG # 0.03 10e3/ul Normal 0.00-0.03 [facility] Comment on above: Performed By: #### L UPUSRF #### [facility] [address] [address] [address] Kenneth Kaye IG % 0.3 % Normal 0.0-0.5 [facility] Comment on above: Performed By: #### L UPUSRF #### [facility] [address] [address] [address] Kenneth Kaye LYMPH # 2.6 103/ul Normal 1.2-3.8 [facility] Comment on above: Performed By: #### L UPUSRF #### [facility] [address] [address] [address] Kenneth Kaye Lymphocytes/100 WBC (Bld) 26.7 % Normal 20.5-60.0 [facility] Comment on above: Performed By: #### L UPUSRF #### [facility] [address] [place] [address] Dr. Kenneth Kaye MANUAL DIFF REQ NO Normal [facility] Comment on above: Performed By: #### L UPUSRF #### [facility] [address] [place] [address] Dr. Kenneth Kaye MCH (RBC) [Entitic mass] 29.8 pg Normal 26.7-34.0 [facility] Comment on above: Performed By: #### L UPUSRF #### [facility] [address] [place] [address] Dr. Kenneth Kaye MCHC (RBC) [Mass/Vol] 33.3 g/dL Normal 29.9-35.2 [facility] Comment on above: Performed By: #### L UPUSRF #### [facility] [address] [place] [address] Dr. Kenneth Kaye MCV (RBC) [Entitic vol] 89.3 fL Normal 81.0-99.0 [facility] Comment on above: Performed By: #### L UPUSRF #### [facility] [address] [place] [address] Dr. Kenneth Kaye MONO # 0.5 103/ul Normal 0.3-0.8 [facility] Comment on above: Performed By: #### L UPUSRF #### [facility] [address] [place] [address] Dr. Kenneth Kaye Monocytes/100 WBC (Bld) 5.1 % Normal 1.7-12.0 [facility] Comment on above: Performed By: #### L UPUSRF #### [facility] [address] [place] [address] Dr. Kenneth Kaye NEUT # 6.4 103/ul Normal 1.4-6.5 [facility] Comment on above: Performed By: #### L UPUSRF #### [facility] [address] [place] [address] Dr. Kenneth Kaye Neutrophils/100 WBC (Bld) 66.4 % Normal 43.0-75.0 [facility] Comment on above: Performed By: #### L UPUSRF #### [facility] [address] [place] [address] Dr. Kenneth Kaye Platelet mean volume (Bld) [Entitic vol] 10.4 fL Normal 9.5-13.5 [facility] Comment on above: Performed By: #### L UPUSRF #### [facility] [address] [place] [address] Dr. Kenneth Kaye PLT 243 103/ul Normal 150-450 [facility] Comment on above: Performed By: #### L UPUSRF #### [facility] [address] [place] [address] Dr. Kenneth Kaye RBC 4.30 106/ul Normal 4.20-5.40 [facility] Comment on above: Performed By: #### L UPUSRF #### [facility] [address] [place] [address] Dr. Kenneth Kaye WBC 9.6 103/ul Normal 4.0-11.0 [facility] Comment on above: Performed By: #### L UPUSRF #### [facility] [address] [place] [address] Dr. Kenneth Kaye GLYCOHEMOGLOBIN A1Con 2021 ADA RECOMMENDATION SEE BELOW Normal [facility] Comment on above: Result Comment: ADA RECOMMENDED LIMIT 4.0 - 6.0 ADA THERAPEUTIC TARGET < 7.0 ACTION SUGGESTED > 7.0 Performed By: #### L UPUSRF #### [facility] [address] [place] [address] Dr. Kenneth Kaye Glucose [Mass/Vol] 114 mg/dL Normal [facility] Comment on above: Performed By: #### L UPUSRF #### [facility] [address] [place] [address] Dr. Kenneth Kaye HbA1c (Bld) [Mass fraction] 5.6 % Normal 4.5-6.2 [facility] Comment on above: Performed By: #### L UPUSRF #### [facility] [address] [place] [address] Dr. Kenneth Kaye PREG QUANT HCGon 05-23-2022 HCG QUANT 938 mIU/mL Normal [facility] Comment on above: Performed By: #### P REGQNT, TSH #### [facility] [address] [place] [address] Dr. Kenneth Kaye HCG RANGE SEE BELOW Normal [facility] Comment on above: Result Comment: 5-50 0.2-1 WEEK 50-500 1-2 WEEKS 100-5,000 2-3 WEEKS 500-10,000 3-4 WEEKS 1,000-50,000 4-5 WEEKS 10,000-100,000 5-6 WEEKS 15,000-200,000 6-8 WEEKS 10,000-100,000 2-3 MONTHS Performed By: #### P REGQNT, TSH #### [facility] [address] [place] [address] Dr. Kenneth Kaye TSHon 05-23-2022 TSH 1.712 uIU/mL Normal 0.358-3.740 [facility] Comment on above: Performed By: #### P REGQNT, TSH #### [facility] [address] [place] [address] Dr. Kenneth Kaye HCG-BETA SUBUNIT QUANTon hCG,Beta Subunit,Qnt,Serum 1530 mIU/mL Normal [facility] Comment on above: Result Comment: Fema le (Non-) 0 - 5 (Postmenopausal) 0 - 8 . Female () Weeks of Gestation 3 6 - 71 4 10 - 750 5 697 - [phone] 6 711 - 74672 7 [phone] 8 [phone] -[phone] 9 [phone] 10 [phone] -[phone] 12 20431 -[phone] 14 61788 - 12038 15 90658 - 08624 16 9670 - [phone] 17 [phone] - [phone] 18 [phone] - [phone] Sonia ECLIA methodology Performed By: #### H CGSUB #### [facility] [address] [place] [address] Dr. Kenneth Kaye US PREG TVon 05-15-2022 [...] OTIS NGUYEN Date: 2022-05-15 16:56 Normal [facility] Serum or plasma beta choriog onadotropin measurement (units/volume)Ordered By: Bessie Apodaca on 05-12-2022 HCG.beta subunit Qn 1720.00 m[IU]/mL [facility] Comment on above: Approximate Approxim ate hCG Gestational Age Range (mIU/ml) (weeks) 0.2-1 5-50 1-2 50-500 2-3 100-5,000 3-4 500-10,000 4-5 1,000-50,000 5-6 10,000-100,000 6-8 15,000-200,000 8-12 10,000-100,000 Albumin [Mass/volume] in Ser um or PlasmaOrdered By: Russ Persaud on 05-09-2022 Albumin [Mass/Vol] 4.1 g/dL 3.2-5.5 [facility] Basophils Auto (Bld) [#/Vol] Ordered By: Russ Persaud on 05-09-2022 Basophils (Bld) [#/Vol] 0.0 10*3/uL 0.0-0.2 [facility] Basophils/100 WBC Auto (Bld) Ordered By: Russ Persaud on 05-09-2022 Basophils/100 WBC (Bld) 0.4 % . F [facility] Bilirubin Test strip Ql (U)O rdered By: Russ Persaud on 05-09-2022 Bilirubin Ql (U) Negative Negative [facility] Blood hemoglobin measurement (mass/volume)Ordered By: Russ Persaud on 05-09-2022 Hemoglobin (Bld) [Mass/Vol] 13.4 g/dL 11.8-15.4 [facility] Blood leukocytes automated c ount (number/volume)Ordered By: Russ Persaud on 05-09-2022 WBC (Bld) [#/Vol] 11.5 10*3/uL 4.5-11.0 [facility] Color Auto (U)Ordered By: Danny Persaud on 05-09-2022 Color (U) Yellow Yellow [facility] Creatinine and Glomerular fi ltration rate.predicted panel (S/P/Bld)Ordered By: Russ Persaud on 05-09-2022 Creatinine [Mass/Vol] 0.61 mg/dL 0.44-1.03 [facility] Eosinophils Auto (Bld) [#/Vo l]Ordered By: Russ Persaud on 05-09-2022 Eosinophils (Bld) [#/Vol] 0.1 10*3/uL 0.0-0.45 [facility] Eosinophils/100 WBC Auto (Bl d)Ordered By: Russ Persaud on 05-09-2022 Eosinophils/100 WBC (Bld) 1.2 % . [facility] Erythrocyte distribution wid th Auto (RBC) [Ratio]Ordered By: Russ Persaud on 05-09-2022 Erythrocyte distribution width (RBC) [Ratio] 13.2 % 11.9-15.3 [facility] Estimated glomerular filtrat ion rate (GFR) non- AmericanOrdered By: Russ Persaud on 05-09-2022 GFR/1.73 sq M.predicted among non-blacks MDRD (S/P/Bld) [Vol rate/Area] > 60 mL/Min [facility] Globulin Calc (S) [Mass/Vol] Ordered By: Russ Persaud on 05-09-2022 Globulin (S) [Mass/Vol] 2.8 g/dL F [facility] HCG ( test) IA.rapi d Ql (U)Ordered By: Russ Persaud on 05-09-2022 HCG ( test) Ql (U) Positive [facility] Hematocrit Auto (Bld) [Volum e fraction]Ordered By: Russ Persaud on 05-09-2022 Hematocrit (Bld) [Volume fraction] 40.0 % 34.0-46.4 [facility] Ketones Auto test strip (U) [Mass/Vol]Ordered By: Russ Persaud on 05-09-2022 Ketones (U) [Mass/Vol] Negative Negative Fi [facility] - Hematology and Cell countsOrdered By: Russ Persaud on 05-09-2022 Nucleated RBC/100 WBC (Bld) [Ratio] 0.1 % 0-0.5 [facility] Lymphocytes Auto (Bld) [#/Vo l]Ordered By: Russ Persaud on 05-09-2022 Lymphocytes (Bld) [#/Vol] 3.3 10*3/uL 1.00-4.8 [facility] Lymphocytes/100 WBC Auto (Bl d)Ordered By: Russ Persaud on 05-09-2022 Lymphocytes/100 WBC (Bld) 28.8 % . [facility] MCH Auto (RBC) [Entitic mass ]Ordered By: Russ Persaud on 05-09-2022 MCH (RBC) [Entitic mass] 29.5 pg 24.7-34.3 [facility] MCHC Auto (RBC) [Mass/Vol]Or dered By: Russ Persaud on 05-09-2022 MCHC (RBC) [Mass/Vol] 33.5 g/dL 32.0-35.0 [facility] MCV Auto (RBC) [Entitic vol] Ordered By: Russ Persaud on 05-09-2022 MCV (RBC) [Entitic vol] 88.1 fL 80-100 F [facility] Monocytes Auto (Bld) [#/Vol] Ordered By: Russ Persaud on 05-09-2022 Monocytes (Bld) [#/Vol] 0.6 10*3/uL 0.0-0.8 [facility] Monocytes/100 WBC Auto (Bld) Ordered By: Russ Persaud on 05-09-2022 Monocytes/100 WBC (Bld) 5.5 % . F [facility] Neutrophils Auto (Bld) [#/Vo l]Ordered By: Russ Persaud on 05-09-2022 Neutrophils (Bld) [#/Vol] 7.4 10*3/uL 1.8-7.7 [facility] Neutrophils/100 WBC Auto (Bl d)Ordered By: Russ Persaud on 05-09-2022 Neutrophils/100 WBC (Bld) 64.1 % . [facility] Nitrite Test strip Ql (U)Ord ered By: Russ Persaud on 05-09-2022 Nitrite Ql (U) Negative Negative [facility] No Panel InformationOrdered By: Russ Persaud on 05-09-2022 Estimated GFR () > 60 mL/Min [facility] Comment on above: GFR estimated refere nce range: According to KDOQI guidelines, <60 ml/min/1.73m2 is sufficient to diagnose a patient with chronic kidney disease. Pharmacy Creatinine Clearance (Chem 135.64 [facility] Platelet mean volume Auto (B ld) [Entitic vol]Ordered By: Russ Persaud on 05-09-2022 Platelet mean volume (Bld) [Entitic vol] 9.3 fL 6.3-10.7 [facility] Platelets Auto (Bld) [#/Vol] Ordered By: Russ Persaud on 05-09-2022 Platelets (Bld) [#/Vol] 236 10*3/uL 150-450 [facility] Protein Auto test strip (U) [Mass/Vol]Ordered By: Russ Persaud on 05-09-2022 Protein (U) [Mass/Vol] Negative Negative [facility] Protein [Mass/volume] in Ser um or PlasmaOrdered By: Russ Persaud on 05-09-2022 Protein [Mass/Vol] 6.9 g/dL 6.1-7.9 [facility] RBC Auto (Bld) [#/Vol]Ordere d By: Russ Persaud on 05-09-2022 RBC (Bld) [#/Vol] 4.54 10*6/uL 3.60-5.00 [facility] Serum or plasma alanine pan otransferase measurement without P-5'-P (enzymatic activiOrdered By: Russ Persaud on 05-09-2022 ALT No additional P-5'-P [Catalytic activity/Vol] 13 U/L 10-60 [facility] Serum or plasma albumin/glob ulin mass ratioOrdered By: Russ Persaud on 05-09-2022 Albumin/Globulin [Mass ratio] 1.5 {ratio} [facility] Serum or plasma alkaline erwin sphatase measurement (enzymatic activity/volume)Ordered By: Russ Persaud on 05-09-2022 ALP [Catalytic activity/Vol] 51 U/L 32-92 [facility] Serum or plasma aspartate am inotransferase measurement (enzymatic activity/volume)Ordered By: Russ Persaud on 05-09-2022 AST [Catalytic activity/Vol] 19 U/L 10-42 [facility] Serum or plasma beta choriog onadotropin measurement (units/volume)Ordered By: Russ Persaud on 05-09-2022 HCG.beta subunit Qn 1593.00 m[IU]/mL [facility] Comment on above: Approximate Approxim ate hCG Gestational Age Range (mIU/ml) (weeks) 0.2-1 5-50 1-2 50-500 2-3 100-5,000 3-4 500-10,000 4-5 1,000-50,000 5-6 10,000-100,000 6-8 15,000-200,000 8-12 10,000-100,000 Serum or plasma calcium daksha urement (mass/volume)Ordered By: Russ Persaud on 05-09-2022 Calcium [Mass/Vol] 9.5 mg/dL 8.2-10.2 [facility] Serum or plasma chloride brett surement (moles/volume)Ordered By: Russ Persaud on 05-09-2022 Chloride [Moles/Vol] 101 mmol/L 95-114 [facility] Serum or plasma glucose daksha urement (mass/volume)Ordered By: Russ Persaud on 05-09-2022 Glucose [Mass/Vol] 98 mg/dL 70-100 [facility] Comment on above: ADA recommended refe rence range Random Glucose Reference Range is dependent on time and content of last meal. Glucose of more than 200 mg/dL in a nonstressed, ambulatory subject supports the diagnosis of Diabetes Mellitus. Serum or plasma potassium me asurement (moles/volume)Ordered By: Russ Persaud on 05-09-2022 Potassium [Moles/Vol] 3.5 mmol/L 3.5-5.1 [facility] Serum or plasma sodium measu rement (moles/volume)Ordered By: Russ Persaud on 05-09-2022 Sodium [Moles/Vol] 136 mmol/L 136-146 [facility] Serum or plasma total biliru bin measurement (mass/volume)Ordered By: Russ Persaud on 05-09-2022 Bilirubin [Mass/Vol] 0.4 mg/dL 0.3-1.2 [facility] Serum or plasma total carbon dioxide measurement (moles/volume)Ordered By: Russ Persaud on 05-09-2022 CO2 [Moles/Vol] 24.4 mmol/L 22.0-30.0 [facility] Serum or plasma urea nitroge n measurement (mass/volume)Ordered By: Russ Persaud on 05-09-2022 Urea nitrogen [Mass/Vol] 10 mg/dL 06-09 [facility] Specific gravity Auto test s trip (U) [Rel density]Ordered By: Russ Persaud on 05-09-2022 Specific gravity (U) [Rel density] 1.026 1.001-1.030 [facility] Urine clarity by refractomet ry automatedOrdered By: Russ Persaud on 08-23-2022 Clarity Refractometry automated (U) Clear Clear [facility] Urine glucose measurement by automated test strip (mass/volume)Ordered By: Russ Persaud on 05-09-2022 Glucose Auto test strip (U) [Mass/Vol] Normal mg/dL Normal [facility] Urine hemoglobin detection b y automated test stripOrdered By: Russ Persaud on 05-09-2022 Hemoglobin Auto test strip Ql (U) Negative Negative [facility] Urine leukocyte esterase det ection by automated test stripOrdered By: Russ Persaud on 05-09-2022 Leukocyte esterase Auto test strip Ql (U) Negative Negative [facility] Urobilinogen Auto test strip (U) [Mass/Vol]Ordered By: Russ Persaud on 05-09-2022 Urobilinogen (U) [Mass/Vol] Normal mg/dL Normal [facility] pH Auto test strip (U)Ordere d By: Russ Persaud on 05-09-2022 pH (U) 6.5 [pH] 5.0-9.0 [facility] Vital Signs Date Time Vital Sign Value Performing Clinician Facility 07-16-2023 08:00-0400 Body height 162.56 cm Debra Koenig Other [facility] Other 07-16-2023 08:00-0400 Body mass index (BMI) [Ratio] 29.37 kg/m2 Debra Koenig Other [facility] Other 07-16-2023 08:00-0400 Body weight 77.61 kg Debra Koenig Other [facility] Other 07-16-2023 08:00-0400 Diastolic blood pressure 76 mm[Hg] Debra Koenig Other [facility] Other 07-16-2023 08:00-0400 Respiratory rate 18 /min Debra Koenig Other [facility] Other 07-16-2023 08:00-0400 SaO2% (BldA) [Mass fraction] 98 % Debra Koenig Other [facility] Other 07-16-2023 08:00-0400 Systolic blood pressure 128 mm[Hg] Debra Koenig Other [facility] Other 03-15-2023 08:00-0400 Body height 162.56 cm Debra Koenig Other [facility] Other 03-15-2023 08:00-0400 Body mass index (BMI) [Ratio] 28.18 kg/m2 Debra Koenig Other [facility] Other 03-15-2023 08:00-0400 Body weight 74.48 kg Debra Koenig Other [facility] Other 03-15-2023 08:00-0400 Diastolic blood pressure 72 mm[Hg] Debra Koenig Other [facility] Other 03-15-2023 08:00-0400 Respiratory rate 18 /min Debra Liberty Other [facility] Other 03-15-2023 08:00-0400 SaO2% (BldA) [Mass fraction] 99 % Debra Koenig Other [facility] Other 03-15-2023 08:00-0400 Systolic blood pressure 116 mm[Hg] Debra Koenig Other [facility] Other 01-18-2023 09:43-0400 Body height 162.56 cm PHYSICIAN NO [facility] 01-18-2023 09:43-0400 Body temperature 98.3 [degF] PHYSICIAN NO [facility] 01-18-2023 09:43-0400 Body weight 72.35 kg PHYSICIAN NO [facility] 01-18-2023 09:43-0400 Diastolic blood pressure 70 mm[Hg] PHYSICIAN NO [facility] 01-18-2023 09:43-0400 Heart rate 80 /min PHYSICIAN NO [facility] 01-18-2023 09:43-0400 Respiratory rate 18 /min PHYSICIAN NO [facility] 01-18-2023 09:43-0400 SaO2% (BldA) [Mass fraction] 99 % PHYSICIAN NO [facility] 01-18-2023 09:43-0400 Systolic blood pressure 130 mm[Hg] PHYSICIAN NO [facility] 05-12-2022 15:20-0400 Body height 162.56 cm PHYSICIAN NO [facility] 05-12-2022 15:20-0400 Body temperature 98.7 [degF] PHYSICIAN NO [facility] 05-12-2022 15:20-0400 Body weight 72.55 kg PHYSICIAN NO [facility] 05-12-2022 15:20-0400 Diastolic blood pressure 78 mm[Hg] PHYSICIAN NO [facility] 05-12-2022 15:20-0400 Heart rate 98 /min PHYSICIAN NO [facility] [place] 05-12-2022 15:20-0400 Respiratory rate 16 /min PHYSICIAN NO [facility] 05-12-2022 15:20-0400 SaO2% (BldA) [Mass fraction] 99 % PHYSICIAN NO [facility] 05-12-2022 15:20-0400 Systolic blood pressure 115 mm[Hg] PHYSICIAN NO [facility] 05-09-2022 21:15-0400 Diastolic blood pressure 101 mm[Hg] PHYSICIAN NO [facility] 05-09-2022 21:15-0400 Heart rate 107 /min PHYSICIAN NO [facility] [place] 05-09-2022 21:15-0400 Respiratory rate 22 /min PHYSICIAN NO [facility] 05-09-2022 21:15-0400 SaO2% (BldA) [Mass fraction] 88 % PHYSICIAN NO [facility] 05-09-2022 21:15-0400 Systolic blood pressure 204 mm[Hg] PHYSICIAN NO [facility] 05-09-2022 17:090400 Body height 162.56 cm PHYSICIAN NO [facility] [place] 05-09-2022 17:09-0400 Body temperature 98.7 [degF] PHYSICIAN NO [facility] 05-09-2022 17:090400 Body weight 70.3 kg PHYSICIAN NO [facility] [place] Encounters Encounter Date Encounter Type Care Provider Facility Start: 07-18-2023 End: 07-18-2023 ambulatory Debra Petty [facility] Facility:[facility] Start: 07-18-2023 End: 07-18-2023 ambulatory DO Debra Koenig Work Phone: [facility] Work Phone: Start: 07-18-2023 End: 07-18-2023 Patient encounter procedure DO Debra Koenig Work Phone: [facility] Start: 07-16-2023 End: 07-16-2023 ambulatory Debra Koenig Other [employer] Other Start: 07-16-2023 Encounter for genera l adult medical examination without abnormal findings Debra Koenig [facility] Start: 07-16-2023 Periodic preventive med est patient 18-39 yrs Debra Koenig [facility] Start: 03-15-2023 Office outpatient ne w 45 minutes Debra Koenig [facility] Start: 03-15-2023 Telephone encounter Debra Koenig [facility] Start: 03-15-2023 End: 03-15-2023 ambulatory Debra Koenig Facility:[facility] Start: 03-15-2023 End: 03-15-2023 ambulatory PHYSICIAN NO [facility] Work Phone: Start: 03-15-2023 End: 03-15-2023 Patient encounter procedure PHYSICIAN NO [facility] Start: 01-18-2023 End: 01-18-2023 Emergency department patient visit Angelito Beyer Facility:[facility] Start: 01-18-2023 End: 01-18-2023 Emergency department patient visit PHYSICIAN NO [facility] Work Phone: Start: 07-20-2022 End: [...] 05-09-2022 Emergency department patient visit PHYSICIAN NO [facility] Procedures Date Procedure Procedure Detail Performing Clinician Start: 05-09-2022 Diagnostic ultrasoun d of gravid uterus PHYSICIAN NO FAMILY Start: 05-09-2022 Transvaginal obstetr ic ultrasonography PHYSICIAN NO FAMILY Plan of Treatment Date Care Activity Detail Author Start: 05-12-2022 End: 05-12-2022 Emergency department patient visit Departed Emergency [facility] Estradiol (E2) [Mass/volume] in Serum or Plasma [facility] Patient Education [facility] Work Phone: Patient referral [facility] Work Phone: Immunizations Immunization Date Immunization Notes Care Provider Fa cility NEGATED: Highlighted row has not occurred!03-15-2023 influenza, seasonal, injectable Patient Objection Debra Drummond [employer] Other Payers Date Payer Category Payer Self-pay 2023 Unknown [id number] 1997 Unknown [id number] 2.16.84 [id number] 1997 Unknown [id number] 2.16.84 [id number] 1997 Unknown [id number] 2.16.84 [id number] 1997 Unknown [id number] 2.16.84 [id number] 1997 Unknown [id number] 2.16.84 [id number] 1997 Unknown [id number] 2.16.84 [id number] 1959 Unknown [id number] Unknown [id number] 2.16.8 [id number] Unknown [id number] 2.16.8 [id number] Unknown [id number] 2.16.8 [id number] Social History Date Type Detail Facility Start: 05-12-2022 End: 01-18-2023 Tobacco smoking status NHIS Never smoked tobacco (finding) [facility] Start: 1995 Sex Assigned At Female F [facility] Sex Assigned At Sex Assigned At Bir th [employer] Other Evaluation note 07-16-2023 Note Date & Type Note Facility 07-16-2023 Evaluation note Encounter Date Diagnosis Assessment Notes [...] today Jun, Weight gain (ICD-10 - R63.5) [employer] Other Evaluation note 03-15-2023 Note Date & [...] Reviewed lab work done at [facility] Feb, 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) Recommend referral to derm for evaluation [employer] Other Evaluation note Note Date & Type Note Facility Evaluation note No assessment information availa [facility] Work Phone: Evaluation note Note Date & Type Note Facility Evaluation note No Information [facility] Other Hospital Discharge instructions Note Date & Type Note Facility Hospital Discharge instructions Additional Instructions 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 with the results If you have develop severe pain in your pelvis excessive bleeding greater than a pad an hour or any other concerns return to the ER [facility] Work Phone: Chief Complaint and Reason for [...] 1 Atypical nevi (D22.9 ) Referral Organization [facility] Family Quiana Chopra Referring Provider First Name Debra Referring Provider Last Name [place] Referring Provider Specialty Family Medi cine Referred Organization [facility] Referred Provider Xiomara Butcher Referred Address ,[place],[address] Referred Provider Specialty Dermatology Referral Priority Routine General Notes Isi Elliott 01:51:04 PM >referral received and faxed Additional Source Comments Care Teams (unrecognized sec tion and content) Team Status: Inactive Member Role Status Dates PHYSICIAN NO FAMILY Primary Care Provider Active Bessie Apodaca , [employer]E [employer]- Emergency Provider Active Team Status: Inactive Member Role Status Dates PHYSICIAN NO FAMILY Primary Care Provider Active Russ Persaud DO Emergency Provider Active Team Status: Active Member Role Status Dates PHYSICIAN NO FAMILY Primary Care Provider Active Team Status: Active Member Role Status Dates Debra Koenig , Primary Care Provider Active Team Status: Inactive Member Role Status Dates Debra Koenig , Primary Care Provider, Attending Venkat bazan Active Team Status: Inactive Member Role Status Dates PHYSICIAN NO FAMILY Primary Care Provider Active Angelito Beyer APRN Emergency Provider Active Goals (unrecognized section and content) Goals may be documented in a n alternate sectionGoals may be documented in an alternate sectionNo InformationNo InformationNo InformationGoals may be documented in an alternate section INFORMATION SOURCE (unrecogn ized section and content) DATE CREATED AUTHOR 07/31/2022 [facility] DATE CREATED AUTHOR AUTHOR'S ORGANIZ ATION 07/19/2023 [facility] REASON FOR VISIT (unrecogniz ed section [...] BE BASED ON THE PRIMARY CLINICAL RECORDS. [facility] [employer] [facility]. provides no warranty or guarantee of the accuracy or completeness of information in this document.
[2023-12-16 13:53] VITALS: BP 123/87; PULSE 72; TEMP 37.1; O2SAT 99; BMI 28.8
== END 2023-12-16 15:43 | disposition left against medical advice (07) ==
LOC: ER 13:49
PROVIDERS: Emergency Provider Emergency Medicine
DX: Z53.21 Procedure and treatment not carried out due to patient leaving prior to being seen by health care provider (principal)
CPT/HCPCS: 99281

== ENCOUNTER 2024-01-20 10:33 | Emergency (ER) | payer BC, SELFPAY ==
[2024-01-20] VITALS (10 sets, daily range): BP systolic 106–138; BP diastolic 68–81; PULSE 74–96; TEMP 36.9; O2SAT 96–99; BMI 28.8
--- OUTSIDE RECORDS SUMMARY | 2024-01-20 10:40 | XMS_ITS | CCD ---
Author Organization [facility] Care Team Providers Care Nutrition Consultant Name Role Phone NO FAMILY, PHYSICIAN Primary Care Provider Unava ilable DO Russ Persaud Emergency Provider Paulie, GLOBAL SALES EXECUTIVE- Bessie Monsivais Emergency Provider STONE, DR GONZALEZ [...] Provider Liberty, DO Debra A Attending Provider Koenig, Debra Unavailable Koenig, DO Debra A Primary Care Provider Koenig, DO Debra A Attending Provider Angelito Beyer [...] 07-18-2023 ALT [Catalytic activity/Vol] 16 U/L 7-52 [facility] Albumin [Mass/volume] in Ser um or Plasma by Bromocresol green (BCG) dye binding methoOrdered By: Debra Koenig on 07-18-2023 Albumin BCG dye [Mass/Vol] 4.7 g/dL 3.5-5.7 [facility] Alkaline phosphatase [Enzyma tic activity/volume] in Serum or PlasmaOrdered By: Debra Koenig on 07-18-2023 ALP [Catalytic activity/Vol] 54 U/L 34-104 [facility] Aspartate aminotransferase [ Enzymatic activity/volume] in Serum or PlasmaOrdered By: Debra Koenig on 07-18-2023 AST [Catalytic activity/Vol] 24 U/L 13-39 [facility] Bilirubin.total [Mass/volume ] in Serum or PlasmaOrdered By: Debra Koenig on 07-18-2023 Bilirubin [Mass/Vol] 0.5 mg/dL 0.3-1.0 [facility] CMP with reflex to A1Con Albumin [Mass/Vol] 4.7 g/dL Normal 3.5-5.7 [facility] Comment on above: Order Comment: Reaso n for Exam Well adult exam Reason for Exam Weight gain Performed By: #### T EST, LIPID, CMP wRFX A1C, TSH3 wRFLX, CBCNO #### [facility] [address] [place] [address] #### ESTRADIOL #### [facility] , Albumin/Globulin [Mass ratio] 2.0 {ratio} Normal [facility] Comment on above: Order Comment: Reaso n for Exam Well adult exam Reason for Exam Weight gain Performed By: #### T EST, LIPID, CMP wRFX A1C, TSH3 wRFLX, CBCNO #### [facility] [address] [place] [address] [place] #### ESTRADIOL #### [facility] , ALP [Catalytic activity/Vol] 54 U/L Normal 34-104 [facility] Comment on above: Order Comment: Reaso n for Exam Well adult exam Reason for Exam Weight gain Performed By: #### T EST, LIPID, CMP wRFX A1C, TSH3 wRFLX, CBCNO #### [facility] [address] [place] [address] #### ESTRADIOL #### [facility] , ALT [Catalytic activity/Vol] 16 U/L Normal 7-52 [facility] Comment on above: Order Comment: Reaso n for Exam Well adult exam Reason for Exam Weight gain Performed By: #### T EST, LIPID, CMP wRFX A1C, TSH3 wRFLX, CBCNO #### [facility] [address] [place] [address] #### ESTRADIOL #### [facility] , Anion gap [Moles/Vol] 12.4 mmol/L Normal 6.0-15.0 [facility] Comment on above: Order Comment: Reaso n for Exam Well adult exam Reason for Exam Weight gain Performed By: #### T EST, LIPID, CMP wRFX A1C, TSH3 wRFLX, CBCNO #### [facility] [address] [place] [address] [place] #### ESTRADIOL #### [facility] , AST [Catalytic activity/Vol] 24 U/L Normal 13-39 [facility] Comment on above: Order Comment: Reaso n for Exam Well adult exam Reason for Exam Weight gain Performed By: #### T EST, LIPID, CMP wRFX A1C, TSH3 wRFLX, CBCNO #### [facility] [address] [place] [address] [place] #### ESTRADIOL #### [facility] , Bilirubin [Mass/Vol] 0.5 mg/dL Normal 0.3-1.0 [facility] Comment on above: Order Comment: Reaso n for Exam Well adult exam Reason for Exam Weight gain Performed By: #### T EST, LIPID, CMP wRFX A1C, TSH3 wRFLX, CBCNO #### [facility] [address] [place] [address] [place] #### ESTRADIOL #### [facility] , Calcium [Mass/Vol] 9.7 mg/dL Normal 8.6-10.3 [facility] Comment on above: Order Comment: Reaso n for Exam Well adult exam Reason for Exam Weight gain Performed By: #### T EST, LIPID, CMP wRFX A1C, TSH3 wRFLX, CBCNO #### [facility] [address] [place] [address] #### ESTRADIOL #### [facility] , Chloride [Moles/Vol] 107 mmol/L Normal 98-107 [facility] Comment on above: Order Comment: Reaso n for Exam Well adult exam Reason for Exam Weight gain Performed By: #### T EST, LIPID, CMP wRFX A1C, TSH3 wRFLX, CBCNO #### [facility] [address] [place] [address] [place] #### ESTRADIOL #### [facility] , CO2 [Moles/Vol] 24.7 mmol/L Normal 21.0-31.0 [facility] Comment on above: Order Comment: Reaso n for Exam Well adult exam Reason for Exam Weight gain Performed By: #### T EST, LIPID, CMP wRFX A1C, TSH3 wRFLX, CBCNO #### [facility] [address] [place] [address] [place] #### ESTRADIOL #### [facility] , Creatinine [Mass/Vol] 0.62 mg/dL Normal 0.60-1.20 [facility] Comment on above: Order Comment: Reaso n for Exam Well adult exam Reason for Exam Weight gain Performed By: #### T EST, LIPID, CMP wRFX A1C, TSH3 wRFLX, CBCNO #### [facility] [address] [place] [address] [place] #### ESTRADIOL #### [facility] , GFR/1.73 sq M.predicted MDRD (S/P/Bld) [Vol rate/Area] mL/min/{1.73_m2} [facility] Comment on above: Order Comment: Reaso n for Exam Well adult exam Reason for Exam Weight gain Performed By: #### T EST, LIPID, CMP wRFX A1C, TSH3 wRFLX, CBCNO #### [facility] [address] [place] [address] [place] #### ESTRADIOL #### [facility] , Globulin (S) [Mass/Vol] 2.3 g/dL Normal [facility] Comment on above: Order Comment: Reaso n for Exam Well adult exam Reason for Exam Weight gain Performed By: #### T EST, LIPID, CMP wRFX A1C, TSH3 wRFLX, CBCNO #### [facility] [address] [place] [address] [place] #### ESTRADIOL #### [facility] , Glucose [Mass/Vol] 93 mg/dL Normal 70-100 [facility] Comment on above: Order Comment: Reaso n for Exam Well adult exam Reason for Exam Weight gain Performed By: #### T EST, LIPID, CMP wRFX A1C, TSH3 wRFLX, CBCNO #### [facility] [address] [place] [address] [place] #### ESTRADIOL #### [facility] , Potassium [Moles/Vol] 4.1 mmol/L Normal 3.5-5.1 [facility] Comment on above: Order Comment: Reaso n for Exam Well adult exam Reason for Exam Weight gain Performed By: #### T EST, LIPID, CMP wRFX A1C, TSH3 wRFLX, CBCNO #### [facility] [address] [place] [address] [place] #### ESTRADIOL #### [facility] , Protein [Mass/Vol] 7.0 g/dL Normal 6.4-8.9 [facility] Comment on above: Order Comment: Reaso n for Exam Well adult exam Reason for Exam Weight gain Performed By: #### T EST, LIPID, CMP wRFX A1C, TSH3 wRFLX, CBCNO #### [facility] [address] [place] [address] [place] #### ESTRADIOL #### [facility] , Sodium [Moles/Vol] 140 mmol/L Normal 136-145 [facility] Comment on above: Order Comment: Reaso n for Exam Well adult exam Reason for Exam Weight gain Performed By: #### T EST, LIPID, CMP wRFX A1C, TSH3 wRFLX, CBCNO #### [facility] [address] [place] [address] [place] #### ESTRADIOL #### [facility] , Urea nitrogen [Mass/Vol] 9 mg/dL Normal 7-25 [facility] Comment on above: Order Comment: Reaso n for Exam Well adult exam Reason for Exam Weight gain Performed By: #### T EST, LIPID, CMP wRFX A1C, TSH3 wRFLX, CBCNO #### [facility] [address] [place] [address] [place] #### ESTRADIOL #### [facility] , Calcium [Mass/volume] in Ser um or PlasmaOrdered By: Debra Koenig on 07-18-2023 Calcium [Mass/Vol] 9.7 mg/dL 8.6-10.3 [facility] Carbon dioxide, total [Moles /volume] in Serum or PlasmaOrdered By: Debra Koenig on 07-18-2023 CO2 [Moles/Vol] 24.7 mmol/L 21.0-31.0 [facility] Chloride [Moles/volume] in S sherri or PlasmaOrdered By: Debra Koenig on 07-18-2023 Chloride [Moles/Vol] 107 mmol/L 98-107 [facility] Cholesterol [Mass/volume] in Serum or PlasmaOrdered By: Debra Koenig on 07-18-2023 Cholesterol [Mass/Vol] 217 mg/dL 140-200 [facility] Comment on above: Chol less than 200 m g/dl low riskChol 201-239 mg/dl borderline riskChol 240 mg/dl and greater high risk Cholesterol in LDL Calc [Mas s/Vol]Ordered By: Debra Koenig on 07-18-2023 Cholesterol in LDL [Mass/Vol] 146 mg/dL 0-100 [facility] Comment on above: LDL ATP III CLASSIFI CATIONLDL less than 100 mg/dL OptimalLDL 100-129 mg/dL Near or above optimalLDL 130-159 mg/dL Borderline highLDL 160-189 mg/dL HighLDL greater than 189 mg/dL Very high Cholesterol in VLDL Calc [Ma ss/Vol]Ordered By: Debra Koenig on 07-18-2023 Cholesterol in VLDL [Mass/Vol] 18 mg/dL [facility] Creatinine [Mass/volume] in Serum or PlasmaOrdered By: Debra Koenig on 07-18-2023 Creatinine [Mass/Vol] 0.62 mg/dL 0.60-1.20 [facility] Erythrocyte distribution wid th Auto (RBC) [Ratio]Ordered By: Debra Koenig on 07-18-2023 Erythrocyte distribution width (RBC) [Ratio] 12.7 % 11.9-15.3 [facility] Estradiolon 07-18-2023 Estradiol 66.8 pg/mL Normal . [facility] Comment on above: Order Comment: Reaso n for Exam Weight gain Result Comment: Adul t Female: Follicular phase 12.5 - 166.0 Ovulation phase 85.8 - 498.0 Luteal phase 43.8 - 211.0 Postmenopausal <6.0 - 54.7 1st trimester 215.0 - >4300.0 Sonia ECLIA methodology Performed at: [facility] [id number] Senior Net Developer Architect: Salvatore Chan PhD, Phone: [phone] PERFORMED BY: [address] [place] [address] PATHOLOGIST RESERVATIONIST ISMAEL PALMA M.D. Performed By: #### T EST, LIPID, CMP wRFX A1C, TSH3 wRFLX, CBCNO #### [facility] [address] [place] [address] [place] #### ESTRADIOL #### [facility] , Globulin Calc (S) [Mass/Vol] Ordered By: Debra Koenig on 07-18-2023 Globulin (S) [Mass/Vol] 2.3 g/dL [facility] Glucose [Mass/volume] in Ser um or PlasmaOrdered By: Debra Koenig on 07-18-2023 Glucose [Mass/Vol] 93 mg/dL 70-100 [facility] Hematocrit Auto (Bld) [Volum e fraction]Ordered By: Debra Koenig on 07-18-2023 Hematocrit (Bld) [Volume fraction] 38.6 % 34.0-46.4 [facility] Hemoglobin [Mass/volume] in BloodOrdered By: Debra Koenig on 07-18-2023 Hemoglobin (Bld) [Mass/Vol] 13.1 g/dL 11.8-15.4 [facility] Hemogram CBC Without Diffon 07-18-2023 Erythrocyte distribution width (RBC) [Ratio] 12.7 % Normal 11.9-15.3 [facility] Comment on above: Order Comment: Reaso n for Exam Well adult exam Performed By: #### T EST, LIPID, CMP wRFX A1C, TSH3 wRFLX, CBCNO #### [facility] [address] [place] [address] [place] #### ESTRADIOL #### [facility] , Hematocrit (Bld) [Volume fraction] 38.6 % Normal 34.0-46.4 [facility] Comment on above: Order Comment: Reaso n for Exam Well adult exam Performed By: #### T EST, LIPID, CMP wRFX A1C, TSH3 wRFLX, CBCNO #### [facility] [address] [place] [address] [place] #### ESTRADIOL #### [facility] , Hemoglobin (Bld) [Mass/Vol] 13.1 g/dL Normal 11.8-15.4 [facility] Comment on above: Order Comment: Reaso n for Exam Well adult exam Performed By: #### T EST, LIPID, CMP wRFX A1C, TSH3 wRFLX, CBCNO #### [facility] [address] [place] [address] #### ESTRADIOL #### [facility] , MCH (RBC) [Entitic mass] 29.9 pg Normal 24.7-34.3 [facility] Comment on above: Order Comment: Reaso n for Exam Well adult exam Performed By: #### T EST, LIPID, CMP wRFX A1C, TSH3 wRFLX, CBCNO #### [facility] [address] [place] [address] #### ESTRADIOL #### [facility] , MCV (RBC) [Entitic vol] 87.9 fL Normal 80-100 [facility] Comment on above: Order Comment: Reaso n for Exam Well adult exam Performed By: #### T EST, LIPID, CMP wRFX A1C, TSH3 wRFLX, CBCNO #### [facility] [address] [place] [address] #### ESTRADIOL #### [facility] , Mean Corpuscular HGB Conc 34.0 g/dL Normal 32.0-35.0 [facility] Comment on above: Order Comment: Reaso n for Exam Well adult exam Performed By: #### T EST, LIPID, CMP wRFX A1C, TSH3 wRFLX, CBCNO #### [facility] [address] [place] [address] [place] #### ESTRADIOL #### [facility] , Platelet mean volume (Bld) [Entitic vol] 9.3 fL Normal 6.3-10.7 [facility] Comment on above: Order Comment: Reaso n for Exam Well adult exam Result Comment: PERF ORMED BY: [address] [place] [address] PATHOLOGIST RESERVATIONIST ISMAEL PALMA M.D. Performed By: #### T EST, LIPID, CMP wRFX A1C, TSH3 wRFLX, CBCNO #### [facility] [address] [place] [address] [place] #### ESTRADIOL #### [facility] , Platelets (Bld) [#/Vol] 290 10*3/uL Normal 150-450 [facility] Comment on above: Order Comment: Reaso n for Exam Well adult exam Performed By: #### T EST, LIPID, CMP wRFX A1C, TSH3 wRFLX, CBCNO #### [facility] [address] [place] [address] [place] #### ESTRADIOL #### [facility] , RBC (Bld) [#/Vol] 4.39 10*6/uL Normal 3.60-5.00 [facility] Comment on above: Order Comment: Reaso n for Exam Well adult exam Performed By: #### T EST, LIPID, CMP wRFX A1C, TSH3 wRFLX, CBCNO #### [facility] [address] [place] [address] [place] #### ESTRADIOL #### [facility] , WBC (Bld) [#/Vol] 7.5 10*3/uL Normal 3.8-11.6 [facility] Comment on above: Order Comment: Reaso n for Exam Well adult exam Performed By: #### T EST, LIPID, CMP wRFX A1C, TSH3 wRFLX, CBCNO #### [facility] [address] [place] [address] [place] #### ESTRADIOL #### [facility] , Leukocytes [#/volume] correc sharan for nucleated erythrocytes in Blood by Automated counOrdered By: Debra Koenig on 07-18-2023 WBC corrected for nucl RBC Auto (Bld) [#/Vol] 7.5 10*3/uL 3.8-11.6 [facility] Lipid Panelon 07-18-2023 Cholesterol [Mass/Vol] 217 mg/dL High 140-200 [facility] Comment on above: Order Comment: Reaso n for Exam Well adult exam Reason for Exam Weight gain Result Comment: Chol less than 200 mg/dl low risk Chol 201-239 mg/dl borderline risk Chol 240 mg/dl and greater high risk Performed By: #### T EST, LIPID, CMP wRFX A1C, TSH3 wRFLX, CBCNO #### [facility] [address] [place] [address] [place] #### ESTRADIOL #### [facility] , Cholesterol in HDL [Mass/Vol] 53 mg/dL Normal 23-92 [facility] Comment on above: Order Comment: Reaso n for Exam Well adult exam Reason for Exam Weight gain Result Comment: HDL CHOL ATP-III CLASSIFICATION Cardiovascular Risk HDL > or equal to 60 mg/dL LOW HDL < 40 mg/dL HIGH Performed By: #### T EST, LIPID, CMP wRFX A1C, TSH3 wRFLX, CBCNO #### [facility] [address] [place] [address] [place] #### ESTRADIOL #### [facility] , Cholesterol.total/Hazel sterol in HDL [Mass ratio] 4.1 {ratio} Normal <5.0 [facility] Comment on above: Order Comment: Reaso n for Exam Well adult exam Reason for Exam Weight gain Performed By: #### T EST, LIPID, CMP wRFX A1C, TSH3 wRFLX, CBCNO #### [facility] [address] [place] [address] [place] #### ESTRADIOL #### [facility] , LDL Cholesterol,Calculated 146 mg/dL High 0-100 [facility] Comment on above: Order Comment: Reaso [...] CMP wRFX A1C, TSH3 wRFLX, CBCNO #### [facility] [address] [place] [address] [place] #### ESTRADIOL #### [facility] , Triglyceride w/Reflex 92 mg/dL Normal 0-149 [facility] Comment on above: Order Comment: Reaso [...] CMP wRFX A1C, TSH3 wRFLX, CBCNO #### [facility] [address] [place] [address] [place] #### ESTRADIOL #### [facility] , VLDL CHOLESTEROL 18 mg/dL Normal [facility] Comment on above: Order Comment: Reaso n for Exam Well adult exam Reason for Exam Weight gain Performed By: #### T EST, LIPID, CMP wRFX A1C, TSH3 wRFLX, CBCNO #### [facility] [address] [place] [address] [place] #### ESTRADIOL #### [facility] , MCH Auto (RBC) [Entitic mass ]Ordered By: Debra Koenig on 07-18-2023 MCH (RBC) [Entitic mass] 29.9 pg 24.7-34.3 [facility] MCHC Auto (RBC) [Mass/Vol]Or dered By: Debra Koenig on 07-18-2023 MCHC (RBC) [Mass/Vol] 34.0 g/dL 32.0-35.0 [facility] MCV Auto (RBC) [Entitic vol] Ordered By: Debra Koenig on 07-18-2023 MCV (RBC) [Entitic vol] 87.9 fL 80-100 F [facility] No Panel InformationOrdered By: Debra Koenig on 07-18-2023 Estimated GFR (CKD-EPI) > 60.0 mL/Min [facility] Creatinine Clearance (Chem N/A [facility] Platelet mean volume Auto (B ld) [Entitic vol]Ordered By: Debra Koenig on 07-18-2023 Platelet mean volume (Bld) [Entitic vol] 9.3 fL 6.3-10.7 [facility] Platelets Auto (Bld) [#/Vol] Ordered By: Debra Koenig on 07-18-2023 Platelets (Bld) [#/Vol] 290 10*3/uL 150-450 [facility] Potassium [Moles/volume] in Serum or PlasmaOrdered By: Debra Koenig on 07-18-2023 Potassium [Moles/Vol] 4.1 mmol/L 3.5-5.1 [facility] Protein [Mass/volume] in Ser um or PlasmaOrdered By: Debra Koenig on 07-18-2023 Protein [Mass/Vol] 7.0 g/dL 6.4-8.9 [facility] RBC Auto (Bld) [#/Vol]Ordere d By: Debra Koenig on 07-18-2023 RBC (Bld) [#/Vol] 4.39 10*6/uL 3.60-5.00 [facility] Serum or plasma albumin/glob ulin mass ratioOrdered By: Debra Koenig on 07-18-2023 Albumin/Globulin [Mass ratio] 2.0 {ratio} [facility] Serum or plasma anion gap de terminationOrdered By: Debra Koenig on 07-18-2023 Anion gap [Moles/Vol] 12.4 mmol/L 6.0-15.0 [facility] Serum or plasma high density lipoprotein (HDL) cholesterol measurementOrdered By: Debra Koenig on 07-18-2023 Cholesterol in HDL [Mass/Vol] 53 mg/dL 23-92 [facility] Comment on above: HDL CHOL ATP-III CLA SSIFICATION Cardiovascular RiskHDL > or equal to 60 mg/dL LOWHDL < 40 mg/dL HIGH Serum or plasma total choles terol/high density lipoprotein (HDL) cholesterol mass ratOrdered By: Debra Koenig on 07-18-2023 Cholesterol.total/Hazel sterol in HDL [Mass ratio] 4.1 {ratio} <5.0 [facility] Sodium [Moles/volume] in Ser um or PlasmaOrdered By: Debra Koenig on 07-18-2023 Sodium [Moles/Vol] 140 mmol/L 136-145 [facility] Testosteroneon 07-18-2023 Testosterone 0.30 ng/mL Normal 0.00-0.75 [facility] Comment on above: Order Comment: Reaso n for Exam Weight gain Result Comment: PERF ORMED BY: [place] [address] PATHOLOGIST RESERVATIONIST ISMAEL PALMA M.D. Performed By: #### T EST, LIPID, CMP wRFX A1C, TSH3 wRFLX, CBCNO #### [facility] [address] [place] [address] #### ESTRADIOL #### [facility] , Testosterone [Mass/volume] i n Serum or PlasmaOrdered By: Debra Koenig on 07-18-2023 Testosterone [Mass/Vol] 0.30 ng/mL 0.00-0.75 [facility] Thyroid Stim Hormone w/Rflxo n 07-18-2023 Thyroid Stim Hormone w/Rflx 1.11 u[iU]/mL Normal 0.45-5.33 [facility] Comment on above: Order Comment: Reaso n for Exam Well adult exam Reason for Exam Weight gain Result Comment: PERF ORMED BY: [place] [address] PATHOLOGIST RESERVATIONIST ISMAEL PALMA M.D. Performed By: #### T EST, LIPID, CMP wRFX A1C, TSH3 wRFLX, CBCNO #### [facility] [address] [place] [address] [place] #### ESTRADIOL #### [facility] , Thyrotropin [Units/volume] i n Serum or PlasmaOrdered By: Debra Koenig on 07-18-2023 TSH Qn 1.11 m[IU]/L 0.45-5.33 [facility] Triglyceride [Mass/volume] i n Serum or PlasmaOrdered By: Debra Koenig on 07-18-2023 Triglyceride [Mass/Vol] 92 mg/dL 0-149 [facility] Comment on above: TRIG ATP III CLASSIF ICATIONTRIG less than 150 mg/dL NormalTRIG 150-199 mg/dL Borderline highTRIG 200-500 mg/dL High TRIG greater than 500 mg/dL Very highStandard traceable to the Center for Disease Conrtrol and Prevention (CDC) test method. Urea nitrogen [Mass/volume] in Serum or PlasmaOrdered By: Debra Koenig on 07-18-2023 Urea nitrogen [Mass/Vol] 9 mg/dL 7-25 [facility] Alanine aminotransferase [En zymatic activity/volume] in Serum or PlasmaOrdered By: Debra Koenig on 03-15-2023 ALT [Catalytic activity/Vol] 10 U/L Normal 7-52 [facility] Comment on above: Order Comment: Reaso n for Exam Fatigue NOT FASTING .JKW Performed By: #### B 12, FE PRO, [id number], CMP #### [facility] [address] Albumin [Mass/volume] in Ser um or Plasma by Bromocresol green (BCG) dye binding methoOrdered By: Debra Koenig on 03-15-2023 Albumin BCG dye [Mass/Vol] 4.7 g/dL 3.5-5.7 [facility] Alkaline phosphatase [Enzyma tic activity/volume] in Serum or PlasmaOrdered By: Debra Koenig on 03-15-2023 ALP [Catalytic activity/Vol] 64 U/L Normal 34-104 [facility] Comment on above: Order Comment: Reaso n for Exam Fatigue NOT FASTING .JKW Performed By: #### B 12, FE PRO, [id number], CMP #### [facility] [address] [place] [address] [place] Aspartate aminotransferase [ Enzymatic activity/volume] in Serum or PlasmaOrdered By: Debra Koenig on 03-15-2023 AST [Catalytic activity/Vol] 17 U/L Normal 13-39 [facility] Comment on above: Order Comment: Reaso n for Exam Fatigue NOT FASTING .JKW Performed By: #### B 12, FE PRO, [id number], CMP #### [facility] [address] Bilirubin.total [Mass/volume ] in Serum or PlasmaOrdered By: Debra Koenig on 03-15-2023 Bilirubin [Mass/Vol] 0.3 mg/dL Normal 0.3-1.0 [facility] Comment on above: Order Comment: Reaso n for Exam Fatigue NOT FASTING .JKW Performed By: #### B 12, FE PRO, [id number], CMP #### [facility] [address] [place] [id number] [place] Calcium [Mass/volume] in Ser um or PlasmaOrdered By: Debra Koenig on 03-15-2023 Calcium [Mass/Vol] 9.5 mg/dL Normal 8.6-10.3 [facility] Comment on above: Order Comment: Reaso n for Exam Fatigue NOT FASTING .JKW Performed By: #### B 12, FE PRO, [id number], CMP #### [facility] [address] [place] [id number] [facility] Carbon dioxide, total [Moles /volume] in Serum or PlasmaOrdered By: Debra Koenig on 03-15-2023 CO2 [Moles/Vol] 28.8 mmol/L Normal 21.0-31.0 [facility] Comment on above: Order Comment: Reaso n for Exam Fatigue NOT FASTING .JKW Performed By: #### B 12, FE PRO, [id number], CMP #### [facility] [address] [place] [id number] [place] Chloride [Moles/volume] in S sherri or PlasmaOrdered By: Debra Koenig on 03-15-2023 Chloride [Moles/Vol] 107 mmol/L Normal 98-107 [facility] Comment on above: Order Comment: Reaso n for Exam Fatigue NOT FASTING .JKW Performed By: #### B 12, FE PRO, [id number], CMP #### [facility] [address] [place] [id number] [facility] Comprehensive Metabolic Pane trevin 03-15-2023 Albumin [Mass/Vol] 4.018529 g/dL Normal 3.5-5.7 g/dL [employer] Other Bilirubin [Mass/Vol] 0.1516677 mg/dL Normal 0.3- 1.0 mg/dL [employer] Other Calcium [Mass/Vol] 9.5181142 mg/dL Normal 8.6-10 .3 mg/dL [employer] Other CO2 [Moles/Vol] 28.01272845 mmol/L Normal 21.0-3 1.0 mmol/L [employer] Other Creatinine [Mass/Vol] 0.01515479 mg/dL Normal 0. 60-1.20 mg/dL [employer] Other GFR/1.73 sq M.predicted MDRD (S/P/Bld) [Vol rate/Area] mL/min/{1.73_m2} Normal [employer] Other Comment on above: Order Comment: Reaso n for Exam Fatigue NOT FASTING .JKW Performed By: #### B 12, FE PRO, [id number], CMP #### [facility] [address] [place] [id number] [facility] Potassium [Moles/Vol] 4.09029686 mmol/L Normal 3 .5-5.1 mmol/L [employer] Other Protein [Mass/Vol] 6.116969 g/dL Normal 6.4-8.9 g/dL N [facility] [employer] Other Comprehensive Metabolic Panel 2.1 g/dL [employer] Other Albumin [Mass/Vol] 4.7 g/dL Normal 3.5-5.7 [facility] Comment on above: Order Comment: Reaso n for Exam Fatigue NOT FASTING .JKW Performed By: #### B 12, FE PRO, [id number], CMP #### [facility] [address] [place] [address] [place] Creatinine [Mass/volume] in Serum or PlasmaOrdered By: Debra Koenig on 03-15-2023 Creatinine [Mass/Vol] 0.60 mg/dL Normal 0.60-1.20 [facility] Comment on above: Order Comment: Reaso n for Exam Fatigue NOT FASTING .JKW Performed By: #### B 12, FE PRO, [id number], CMP #### [facility] [address] [place] [id number] [place] FE PROon 03-15-2023 Ferritin [Mass/Vol] 50.5495947 ng/mL Normal 11.0 -306.8 ng/mL [facility] Other FE PRO 437 ug/dL Normal 255-450 ug/dL [facility] Other FE PRO 11.9 % Low 20-50 % [facility] Other % Iron Saturation 11.9 % Low 20-50 [facility] Comment on above: Order Comment: Reaso n for Exam Fatigue NOT FASTING .JKW Performed By: #### B 12, FE PRO, [id number], CMP #### [facility] [address] [place] [id number] [place] Total Iron Binding Capacity 437 ug/dL Normal 255-450 [facility] Comment on above: Order Comment: Reaso n for Exam Fatigue NOT FASTING .JKW Performed By: #### B 12, FE PRO, [id number], CMP #### [facility] [address] [place] [id number] [place] Ferritin [Mass/volume] in Se rum or PlasmaOrdered By: Debra Koenig on 03-15-2023 Ferritin [Mass/Vol] 50.4 ng/mL Normal 11.0-306.8 [facility] Comment on above: Order Comment: Reaso n for Exam Fatigue NOT FASTING .JKW Performed By: #### B 12, FE PRO, [id number], CMP #### [facility] [address] [place] [id number] [place] Glucose [Mass/volume] in Ser um or PlasmaOrdered By: Debra Koenig on 03-15-2023 Glucose [Mass/Vol] 89 mg/dL Normal 70-100 [facility] Comment on above: ADA recommended refe rence rangeRandom Glucose Reference Range is dependent on time and content of last meal. Glucose of more than 200 mg/dL in a nonstressed, ambulatory subject supports the diagnosis of Diabetes Mellitus. Order Comment: Reaso n for Exam Fatigue NOT FASTING .JKW Result Comment: Asher om Glucose Reference Range is dependent on time and content of last meal. Glucose of more than 200 mg/dL in a nonstressed, ambulatory subject supports the diagnosis of Diabetes Mellitus. ADA recommended reference range Performed By: #### B 12, FE PRO, [id number], CMP #### [facility] [address] Iron [Mass/volume] in Serum or PlasmaOrdered By: Debra Koenig on 03-15-2023 Iron [Mass/Vol] 52 ug/dL Normal 50-212 [facility] Comment on above: Order Comment: Reaso n for Exam Fatigue NOT FASTING .JKW Performed By: #### B 12, FE PRO, [id number], CMP #### [facility] [address] [place] [id number] [facility] Iron binding capacity [Mass/ volume] in Serum or PlasmaOrdered By: Debra Koenig on 03-15-2023 Iron binding capacity [Mass/Vol] 437 ug/dL 255-450 [facility] Iron saturation [Mass Fracti on] in Serum or PlasmaOrdered By: Debra Koenig on 03-15-2023 Iron saturation [Mass fraction] 11.9 % 20-50 [facility] No Panel InformationOrdered By: Debra Koenig on 03-15-2023 Estimated GFR (CKD-EPI) > 60.0 mL/Min [facility] Creatinine Clearance (Chem N/A [facility] Potassium [Moles/volume] in Serum or PlasmaOrdered By: Debra Koenig on 03-15-2023 Potassium [Moles/Vol] 4.4 mmol/L Normal 3.5-5.1 [facility] Comment on above: Order Comment: Reaso n for Exam Fatigue NOT FASTING .JKW Performed By: #### B 12, FE PRO, [id number], CMP #### [facility] [address] [place] [id number] [place] Protein [Mass/volume] in Ser um or PlasmaOrdered By: Debra Koenig on 03-15-2023 Protein [Mass/Vol] 6.8 g/dL Normal 6.4-8.9 [facility] Comment on above: Order Comment: Reaso n for Exam Fatigue NOT FASTING .JKW Performed By: #### B 12, FE PRO, [id number], CMP #### [facility] [address] Serum globulin measurement b y calculation (mass/volume)Ordered By: Debra Koenig on 03-15-2023 Globulin (S) [Mass/Vol] 2.1 g/dL Normal [facility] Comment on above: Order Comment: Reaso n for Exam Fatigue NOT FASTING .JKW Performed By: #### B 12, FE PRO, [id number], CMP #### [facility] [address] Serum or plasma albumin/glob ulin mass ratioOrdered By: Debar Koenig on 03-15-2023 Albumin/Globulin [Mass ratio] 2.2 {ratio} Normal [facility] Comment on above: Order Comment: Reaso n for Exam Fatigue NOT FASTING .JKW Performed By: #### B 12, FE PRO, [id number], CMP #### [facility] [address] Serum or plasma anion gap de terminationOrdered By: Debra Koenig on 03-15-2023 Anion gap [Moles/Vol] 9.6 mmol/L Normal 6.0-15.0 [facility] Comment on above: Order Comment: Reaso n for Exam Fatigue NOT FASTING .JKW Performed By: #### B 12, FE PRO, [id number], CMP #### [facility] [address] [place] [address] [place] Sodium [Moles/volume] in Ser um or PlasmaOrdered By: Debra Koenig on 03-15-2023 Sodium [Moles/Vol] 141 mmol/L Normal 136-145 [facility] Comment on above: Order Comment: Reaso n for Exam Fatigue NOT FASTING .JKW Performed By: #### B 12, FE PRO, [id number], CMP #### [facility] [address] [place] [address] [place] Transferrin [Mass/volume] in Serum or PlasmaOrdered By: Debra Koenig on 03-15-2023 Transferrin [Mass/Vol] 312 mg/dL Normal 203-362 [facility] Comment on above: Order Comment: Reaso n for Exam Fatigue NOT FASTING .JKW Performed By: #### B 12, FE PRO, [id number], CMP #### [facility] [address] Urea nitrogen [Mass/volume] in Serum or PlasmaOrdered By: Debra Koenig on 03-15-2023 Urea nitrogen [Mass/Vol] 12 mg/dL Normal 7-25 [facility] Comment on above: Order Comment: Reaso n for Exam Fatigue NOT FASTING .JKW Performed By: #### B 12, FE PRO, [id number], CMP #### [facility] [address] Vitamin B12 ser/plasOrdered By: Debra Koenig on 03-15-2023 Cobalamin (Vitamin B12) [Mass/Vol] 610 pg/mL Normal 180-914 [facility] Comment on above: Order Comment: Reaso n for Exam Fatigue NOT FASTING .JKW Performed By: #### B 12, FE PRO, [id number], CMP #### [facility] [address] [place] [id number] [facility] Vitamin D 25 Hydroxy Totalon 03-15-2023 Vitamin D 25 Hydroxy Total 22.5 ng/mL Low 30-100 ng/mL [employer] Other Vitamin D 25 Hydroxy Total 22.5 ng/mL Low 30-100 [facility] Comment on above: Order Comment: Reaso n for Exam Fatigue NOT FASTING .JKW Result Comment: RAJAT MIN D STATUS 25(OH)VITAMIN D RANGE (ng/mL) Deficient <20 Insufficient 20 to <30 Sufficient 30 to 100 Reference: Teja MF,[place], Kirstie COHEN, et al. Evaluation,treatment, and prevention of vitamin D deficiency; an Endocrine Society clinical practice guideline. JCEM. 2010; 96(7):1911-30. PERFORMED BY: [facility] [address] [place] [address] PATHOLOGIST RESERVATIONIST ISMAEL PALMA M.D. Performed By: #### B 12, FE PRO, [id number], CMP #### [facility] [address] Vitamin D+Metabolites [Mass/ volume] in Serum or PlasmaOrdered By: Debra Koenig on 03-15-2023 Vitamin D+Metabolites [Mass/Vol] 22.5 ng/mL 30-100 [facility] Comment on above: VITAMIN D STATUS 25( [place])VITAMIN D RANGE (ng/mL) Deficient <20 Insufficient 20 to <30Sufficient 30 to 100Reference: Teja MF,[place], Kirstie COHEN, et al. Evaluation,treatment, and prevention of vitamin D deficiency; an Endocrine Society clinical practice guideline. JCEM. 2010; 96(7):1911-30. PAP ACOG PANEL 2: 23 to 31on 07-28-2022 . . Normal [facility] Comment on above: Result Comment: Perf ormed at: BA Performed By: #### L UPUSRF #### [facility] [address] [address] [address] Kenneth Kaye Age Gdln ACOG Testing - Normal [facility] Comment on above: Performed By: #### L UPUSRF #### [facility] [address] [address] [address] Kenneth Kaye DIAGNOSIS: Comment Normal [facility] Comment on above: Result Comment: NEGA TIVE FOR INTRAEPITHELIAL LESION OR MALIGNANCY. Performed at: BA Performed By: #### L UPUSRF #### [facility] [address] [address] [address] Kenneth Kaye Methodology: Comment [facility] Comment on above: Result Comment: This liquid based ThinPrep(R) pap test was screened with the use of an image guided system. Performed at: WB Performed By: #### L UPUSRF #### [facility] [address] [place] [address] Dr. Kenneth Kaye Note: Comment Normal [facility] Comment on above: Result Comment: [...] WB Performed By: #### L UPUSRF #### [facility] [address] [place] [address] Dr. Kenneth Kaye Performed by: Comment Normal [facility] Comment on above: Result Comment: Erinn Borges, Clerk Television Production (ASCP) Performed at: BA Performed By: #### L UPUSRF #### [facility] [address] [place] [address] Dr. Kenneth Kaye Reflex Criteria: Comment Normal [facility] Comment on above: Result Comment: The HPV DNA reflex criteria were not met with this specimen result therefore, no HPV testing was performed. . Performed at: BA Performed By: #### L UPUSRF #### [facility] [address] [place] [address] Dr. Kenneth Kaye Specimen adequacy: Comment Normal [facility] Comment on above: Result Comment: Sati sfactory for evaluation. Endocervical and/or squamous metaplastic cells (endocervical component) are present. Performed at: BA Performed By: #### L UPUSRF #### [facility] [address] [place] [address] Dr. Kenneth Kaye PREG QUANT HCGon 06-22-2022 HCG QUANT 4 mIU/mL [facility] Comment on above: Performed By: #### L UPUSRF #### [facility] [address] [place] [address] Dr. Kenneth Kaye HCG RANGE SEE BELOW [facility] Comment on above: Result Comment: 5-50 0.2-1 WEEK 50-500 1-2 WEEKS 100-5,000 2-3 WEEKS 500-10,000 3-4 WEEKS 1,000-50,000 4-5 WEEKS 10,000-100,000 5-6 WEEKS 15,000-200,000 6-8 WEEKS 10,000-100,000 2-3 MONTHS Performed By: #### L UPUSRF #### [facility] [address] [place] [address] Dr. Kenneth Kaye PREG QUANT HCGon 06-14-2022 HCG QUANT 18 mIU/mL Normal [facility] Comment on above: Performed By: #### L UPUSRF #### [facility] [address] [place] [address] Dr. Kenneth Kaye HCG RANGE SEE BELOW Normal [facility] Comment on above: Result Comment: 5-50 0.2-1 WEEK 50-500 1-2 WEEKS 100-5,000 2-3 WEEKS 500-10,000 3-4 WEEKS 1,000-50,000 4-5 WEEKS 10,000-100,000 5-6 WEEKS 15,000-200,000 6-8 WEEKS 10,000-100,000 2-3 MONTHS Performed By: #### L UPUSRF #### [facility] [address] [place] [address] Dr. Kenneth Kaye PREG QUANT HCGon 06-07-2022 HCG QUANT 175 mIU/mL Normal [facility] Comment on above: Performed By: #### L UPUSRF #### [facility] [address] [place] [address] Dr. Kenneth Kaye HCG RANGE SEE BELOW Normal [facility] Comment on above: Result Comment: 5-50 0.2-1 WEEK 50-500 1-2 WEEKS 100-5,000 2-3 WEEKS 500-10,000 3-4 WEEKS 1,000-50,000 4-5 WEEKS 10,000-100,000 5-6 WEEKS 15,000-200,000 6-8 WEEKS 10,000-100,000 2-3 MONTHS Performed By: #### L UPUSRF #### [facility] [address] [place] [address] Dr. Kenneth Kaye ANTIPHOSPHOLIPID SYNDROME FL OFILEon 05-26-2022 Anticardiolipin Ab,IgG,Qn <9 Normal 0-14 [facility] Comment on above: Result Comment: Nega tive: <15 Indeterminate: 15 - 20 Low-Med Positive: >20 - 80 High Positive: >80 Performed at: CB Performed By: #### L UPUSRF #### [facility] [address] [address] [address] Kenneth Kaye Anticardiolipin Ab,IgM,Qn 10 MPL U/mL Normal 0-12 [facility] Comment on above: Result Comment: Nega tive: <13 Indeterminate: 13 - 20 Low-Med Positive: >20 - 80 High Positive: >80 Performed at: CB Performed By: #### L UPUSRF #### [facility] [address] [address] [address] Kenneth Kaye APS Panel Interpretation Comment Normal [facility] Comment on above: Result Comment: Plea se refer to the Coag Studies Interp Report. Performed at: BN Performed By: #### L UPUSRF #### [facility] [address] [place] [address] Dr. Kenneth Kaye aPTT Coag (Bld) [Time] 25.9 s Normal 22.9-30.[address] [facility] Comment on above: Result Comment: Perf ormed at: BN Performed By: #### L UPUSRF #### [facility] [address] [place] [address] Dr. Kenneth Kaye Beta-2 Glycoprotein I Ab, IgM <9 Normal 0-32 [facility] Comment on above: Result Comment: The reference interval reflects a 3SD or 99th percentile interval, which is thought to represent a potentially clinically significant result in accordance with the International Consensus Statement on the classification criteria for definitive antiphospholipid syndrome (APS). J Thromb Haem 2006;4:295-306. Performed at: BN Performed By: #### L UPUSRF #### [facility] [address] [address] [address] Kenneth Kaye dRVVT 36.6 sec Normal 0.0-47.0 [facility] Comment on above: Result Comment: Perf ormed at: BN Performed By: #### L UPUSRF #### [facility] [address] [address] [address] Kenneth Kaye Hex Phase Phospolipid 4 sec Normal 0-11 [facility] Comment on above: Result Comment: Perf ormed at: BN Performed By: #### L UPUSRF #### [facility] [address] [place] [address] Dr. Kenneth Kaye INR Coag (PPP) [Relative time] 1.0 {INR} Normal 0.9-1.2 [facility] Comment on above: Result Comment: Refe rence interval is for non-anticoagulated patients. . Suggested INR therapeutic range for Vitamin K antagonist therapy: Standard Dose (moderate intensity therapeutic range): 2.0 - 3.0 Higher intensity therapeutic range 2.5 - 3.5 Performed at: BN Performed By: #### L UPUSRF #### [facility] [address] [place] [address] Dr. Kenneth Kaye PT Coag (PPP) [Time] 10.5 s Normal 9.1-12.0 [facility] Comment on above: Result Comment: Perf ormed at: BN Performed By: #### L UPUSRF #### [facility] [address] [place] [address] Dr. Kenneth Kaye Thrombin Time 17.6 sec Normal 0.0-23.0 [facility] Comment on above: Result Comment: Perf ormed at: BN Performed By: #### L UPUSRF #### [facility] [address] [place] [address] Dr. Kenneth Kaye B-2 GLYCOPROTEIN AB IGGon Beta-2 Glycoprotein I Ab, IgG <9 Normal 0-20 [facility] Comment on above: Result Comment: The reference interval reflects a 3SD or 99th percentile interval, which is thought to represent a potentially clinically significant result in accordance with the International Consensus Statement on the classification criteria for definitive antiphospholipid syndrome (APS). J Thromb Haem 2006;4:295-306. Performed By: #### L UPUSRF #### [facility] [address] [place] [address] Dr. Kenneth Kaye Result Comment: The reference [...] Ab, IgM <9 Normal 0-32 [facility] Comment on above: Result Comment: The reference interval reflects a 3SD or 99th percentile interval, which is thought to represent a potentially clinically significant result in accordance with the International Consensus Statement on the classification criteria for definitive antiphospholipid syndrome (APS). J Thromb Haem 2006;4:295-306. Performed By: #### B GLYIGM #### [facility] [address] [place] [address] Dr. Kenneth Kaye LUPUS ANTICOAGULANT/CARDIOLI PIN ABon 05-26-2022 Anticardiolipin Ab, IgG <10 Normal [facility] Comment on above: Result Comment: Refe rence Range: Negative: <15 Indeterminate: 15 - 20 Low to medium positive: >20 - 80 High positive: >80 Performed By: #### L UPUCRD #### [facility] [address] [place] [address] Dr. Kenneth Kaye Anticardiolipin Ab, IgM <10 Normal [facility] Comment on above: Result Comment: Refe rence Range: Negative: <13 Indeterminate: 13 - 20 Low to medium positive: >20 - 80 High positive: >80 Performed By: #### L UPUCRD #### [facility] [address] [place] [address] Dr. Kenneth Kaye APTT 1:1 [facility] Comment on above: Result Comment: Test ing Not Indicated This test was developed and its performance characteristics determined by [facility]. It has not been cleared or approved by the Food and Drug Administration. Performed By: #### L UPUCRD #### [facility] [address] [place] [address] Dr. Kenneth Kaye APTT 1:1 [facility] Comment on above: Result Comment: Test ing Not Indicated This test was developed and its performance characteristics determined by [facility]. It has not been cleared or approved by the [place] Food and Drug Administration. Performed By: #### L UPUCRD #### [facility] [address] [place] [address] Dr. Kenneth Kaye aPTT Coag (Bld) [Time] 26.1 s Normal [facility] Comment on above: Result Comment: This test has not been validated for monitoring unfractionated heparin therapy. aPTT-based therapeutic ranges for unfractionated heparin therapy have not been established. Consider ordering Heparin anti-Xa (unfractionated). Reference Range: 18 years and older: 22.9 - 30.2 Performed By: #### L UPUCRD #### [facility] [address] [place] [address] Dr. Kenneth Kaye Beta-2 Glycoprotein I, IgA <10 Normal [facility] Comment on above: Result Comment: The reference interval reflects a 3SD or 99th percentile interval. Reference Range: Negative: <26 Performed By: #### L UPUCRD #### [facility] [address] [place] [address] Dr. Kenneth Kaye Beta-2 Glycoprotein I, IgG <10 Normal [facility] Comment on above: Result Comment: The reference interval reflects a 3SD or 99th percentile interval. Reference Range: Negative: <21 Performed By: #### L UPUCRD #### [facility] [address] [place] [address] Dr. Kenneth Amaro2 Glycoprotein I, IgM <10 Normal [facility] Comment on above: Result Comment: The reference interval reflects a 3SD or 99th percentile interval. Reference Range: Negative: <33 Performed By: #### L UPUCRD #### [facility] [address] [place] [address] Dr. Kenneth Kaye DRVVT Confirm Seconds NIY Normal [facility] Comment on above: Result Comment: Test ing Not Indicated Performed By: #### L UPUCRD #### [facility] [address] [place] [address] Dr. Kenneth Kaye DRVVT Ratio NIY Normal [facility] Comment on above: Result Comment: Test ing Not Indicated Performed By: #### L UPUCRD #### [facility] [address] [place] [address] Dr. Yilan Kaye DRVVT Screen Seconds 33.3 sec Normal [facility] Comment on above: Result Comment: Refe rence Range: <= 47.0 Performed By: #### L UPUCRD #### [facility] [address] [address] [address] Kenneth Kaye Hexagonal Phospholipid Neutral 0 sec Normal [facility] Comment on above: Result Comment: This value is NEGATIVE. This is a qualitative assay and is therefore reported as positive for lupus anticoagulant or negative. The quantitative value is provided as an aid in diagnosis. Reference Range: 0 - 11 Performed By: #### L UPUCRD #### [facility] [address] [address] [address] Kenneth Kaye INR Coag (PPP) [Relative time] 1.0 {INR} Normal [facility] Comment on above: Result Comment: Refe rence Range: >1 month: 0.9 - 1.2 Performed By: #### L UPUCRD #### [facility] [address] [place] [address] Dr. Kenneth Kaye LAC Interpretation Comment Normal [facility] Comment on above: Result Comment: A osito pus anticoagulant is not detected. All antiphospholipid antibodies evaluated are normal. As antibody titers may fluctuate with time, repeat testing may be indicated. Please contact [facility] if further clarification is needed. Performed By: #### L UPUCRD #### [facility] [address] [place] [address] Dr. Kenneth Kaye PT Coag (PPP) [Time] 10.3 s Normal [facility] Comment on above: Result Comment: Refe rence Range: 18 years and older: 9.1 - 12.0 Performed By: #### L UPUCRD #### [facility] [address] [address] [address] Kenneth Kaye Thrombin Time 17.8 sec Normal [facility] Comment on above: Result Comment: Refe rence Range: 0.0 - 23.0 Performed By: #### L UPUCRD #### [facility] [address] [address] [address] Kenneth Kaye FACTOR V LEIDEN MUTATION LAURIE LYSISon 05-25-2022 Factor V Leiden Comment Normal [facility] Comment on above: Result Comment: Resu lt: c.1601G>A ([id number]) - Not Detected . This result is not associated with an increased risk for venous thromboembolism. See Additional Clinical Information and Comments. Additional Clinical Information: Venous thromboembolism is a multifactorial disease influenced by genetic, environmental, and circumstantial risk factors. The c.1601G>A (p. Mon319Pew) variant in the F5 gene, commonly referred [...] c.*97G>A variant and Factor V Leiden (PMID: [id number]). Additional risk factors include but are not [...] health care providers to discuss results at [phone] ([phone]). . Test Details: Variant Analyzed: c.1601G>A (p. Wee121Eqn), referred to as Factor V Leiden . [...] developed and its performance characteristics determined by [facility]. It has not been cleared or approved by the Food and Drug Administration. . References: Chad S, Charlee RAPP, Ad R, Silvestre WW, Burke JH; ACMG Professional Practice and Guidelines Committee. Addendum: [place] [employer] consensus statement on factor V Leiden mutation testing. Silke Med. 2020Nov 19. doi: 10.1038/u36478-224-62088-e. PMID: 04322750. . Luh PATTON. Factor V Leiden Thrombophilia. 1998January 28 [Updated 2017Sep 20]. In: Chaz MP, Simon HH, Silvestre RA, et al., editors. Irma(R) [Internet]. [place] ([place]): [employer]; 5967-4463. Available from: https://www.ncbi.nlm.nih.gov/books/QHM0370/ . Alex S, Charlee RAPP, Miah X, Haresh B, Katie EB, Pau P, Gerald CS; ACMG Laboratory Red Cap Committee. Venous thromboembolism laboratory testing (factor V Leiden and factor II c.*97G>A), 2018 update: a technical standard of the [place] [employer] and [employer] (ACMG). Silke Med. 2018 Aug;20(12):0989-4026. doi: 10.1038/u96195-068-9461-n. Epub 2017Jun 21. PMID: 81770623. . Tawnya Guadarrama, PhD, FACMG Gloria Resendiz, PhD Liban Ling, PhD, FACMG Stephen Tolbert, PhD, FACMG Jagjit Lan, PhD, FACMG Carie Moyer, PhD, FACMG Maya Heredia, PhD, FACMG Myrna Monte, PhD, FACMG Performed By: #### F [facility] #### [facility] [address] [place] [address] Dr. Kenneth Kaye ANTITHROMBIN ACTIVITYon 09-0 Antithrombin Activity 111 % Normal 75-135 [facility] Comment on above: Result Comment: Dire ct Xa inhibitor anticoagulants such as rivaroxaban, apixaban and edoxaban will lead to spuriously elevated antithrombin activity levels possibly masking a deficiency. Performed By: #### A NTIACT #### [facility] [address] [place] [address] Dr. Kenneth Kaye LUPUS ANTICOAGULANT W/REFLEX on 05-24-2022 aPTT Coag (Bld) [Time] 32.7 s Normal 0.0-51.[address] [facility] Comment on above: Performed By: #### L UPUSRF #### [facility] [address] [place] [address] Dr. Kenneth Kaye dRVVT 39.1 sec Normal 0.0-47.0 [facility] Comment on above: Performed By: #### L UPUSRF #### [facility] [address] [place] [address] Dr. Kenneth Kaye Interpretation Comment: Normal [facility] Comment on above: Result Comment: No l upus anticoagulant was detected. Performed By: #### L UPUSRF #### [facility] [address] [place] [address] Dr. Kenneth Kaye PROTEIN C FUNC ACTIVITYon Protein C-Functional 131 % Normal 73-180 [facility] Comment on above: Performed By: #### P RCFACT #### [facility] [address] [place] [address] Dr. Kenneth Kaye PROTEIN S ANTIGENon 05-24-20 22 Protein S, Free 123 % Normal 61-136 [facility] Comment on above: Performed By: #### P RTSAG #### [facility] [address] [place] [address] Dr. Kenneth Kaye Protein S, Total 103 % Normal 60-150 [facility] Comment on above: Result Comment: This test was developed and its performance characteristics determined by [employer]. It has not been cleared or approved by the Food and Drug Administration. Performed By: #### P RTSAG #### [facility] [address] [place] [address] Dr. Kenneth Kaye CBC AUTO DIFFon 05-23-2022 BASO # 0.1 103/ul Normal 0.0-0.1 [facility] Comment on above: Performed By: #### L UPUSRF #### [facility] [address] [place] [address] Dr. Kenneth Kaye Basophils/100 WBC (Bld) 0.5 % Normal 0.2-2.0 [facility] Comment on above: Performed By: #### L UPUSRF #### [facility] [address] [place] [address] Dr. Kenneth Kaye EO # 0.1 103/ul Normal 0.0-0.7 [facility] Comment on above: Performed By: #### L UPUSRF #### [facility] [address] [place] [address] Dr. Kenneth Kaye Eosinophils/100 WBC (Bld) 1.0 % Normal 0.9-7.0 [facility] Comment on above: Performed By: #### L UPUSRF #### [facility] [address] [place] [address] Dr. Kenneth Kaye Erythrocyte distribution width (RBC) [Ratio] 13.1 % Normal 11.0-15.0 [facility] Comment on above: Performed By: #### L UPUSRF #### [facility] [address] [place] [address] Dr. Kenneth Kaye Hematocrit (Bld) [Volume fraction] 38.4 % Normal 36.0-48.0 [facility] Comment on above: Performed By: #### L UPUSRF #### [facility] [address] [place] [address] Dr. Kenneth Kaye Hemoglobin (Bld) [Mass/Vol] 12.8 g/dL Normal 12.0-16.0 [facility] Comment on above: Performed By: #### L UPUSRF #### [facility] [address] [place] [address] Dr. Kenneth Kaye IG # 0.03 10e3/ul Normal 0.00-0.03 [facility] Comment on above: Performed By: #### L UPUSRF #### [facility] [address] [address] [address] Kenneth Kaye IG % 0.3 % Normal 0.0-0.5 [facility] Comment on above: Performed By: #### L UPUSRF #### [facility] [address] [address] [address] Kenneth Kaye LYMPH # 2.6 103/ul Normal 1.2-3.8 [facility] Comment on above: Performed By: #### L UPUSRF #### [facility] [address] [address] [address] Kenneth Kaye Lymphocytes/100 WBC (Bld) 26.7 % Normal 20.5-60.0 [facility] Comment on above: Performed By: #### L UPUSRF #### [facility] [address] [place] [address] Dr. Kenneth Kaye MANUAL DIFF REQ NO Normal [facility] Comment on above: Performed By: #### L UPUSRF #### [facility] [address] [place] [address] Dr. Kenneth Kaye MCH (RBC) [Entitic mass] 29.8 pg Normal 26.7-34.0 [facility] Comment on above: Performed By: #### L UPUSRF #### [facility] [address] [place] [address] Dr. Kenneth Kaye MCHC (RBC) [Mass/Vol] 33.3 g/dL Normal 29.9-35.2 [facility] Comment on above: Performed By: #### L UPUSRF #### [facility] [address] [place] [address] Dr. Kenneth Kaye MCV (RBC) [Entitic vol] 89.3 fL Normal 81.0-99.0 [facility] Comment on above: Performed By: #### L UPUSRF #### [facility] [address] [place] [address] Dr. Kenneth Kaye MONO # 0.5 103/ul Normal 0.3-0.8 [facility] Comment on above: Performed By: #### L UPUSRF #### [facility] [address] [place] [address] Dr. Kenneth Kaye Monocytes/100 WBC (Bld) 5.1 % Normal 1.7-12.0 [facility] Comment on above: Performed By: #### L UPUSRF #### [facility] [address] [place] [address] Dr. Kenneth Kaye NEUT # 6.4 103/ul Normal 1.4-6.5 [facility] Comment on above: Performed By: #### L UPUSRF #### [facility] [address] [place] [address] Dr. Kenneth Kaye Neutrophils/100 WBC (Bld) 66.4 % Normal 43.0-75.0 [facility] Comment on above: Performed By: #### L UPUSRF #### [facility] [address] [place] [address] Dr. Kenneth Kaye Platelet mean volume (Bld) [Entitic vol] 10.4 fL Normal 9.5-13.5 [facility] Comment on above: Performed By: #### L UPUSRF #### [facility] [address] [place] [address] Dr. Kenneth Kaye PLT 243 103/ul Normal 150-450 [facility] Comment on above: Performed By: #### L UPUSRF #### [facility] [address] [place] [address] Dr. Kenneth Kaye RBC 4.30 106/ul Normal 4.20-5.40 [facility] Comment on above: Performed By: #### L UPUSRF #### [facility] [address] [place] [address] Dr. Kenneth Kaye WBC 9.6 103/ul Normal 4.0-11.0 [facility] Comment on above: Performed By: #### L UPUSRF #### [facility] [address] [place] [address] Dr. Kenneth Kaye GLYCOHEMOGLOBIN A1Con 2021 ADA RECOMMENDATION SEE BELOW Normal [facility] Comment on above: Result Comment: ADA RECOMMENDED LIMIT 4.0 - 6.0 ADA THERAPEUTIC TARGET < 7.0 ACTION SUGGESTED > 7.0 Performed By: #### L UPUSRF #### [facility] [address] [place] [address] Dr. Kenneth Kaye Glucose [Mass/Vol] 114 mg/dL Normal [facility] Comment on above: Performed By: #### L UPUSRF #### [facility] [address] [place] [address] Dr. Kenneth Kaye HbA1c (Bld) [Mass fraction] 5.6 % Normal 4.5-6.2 [facility] Comment on above: Performed By: #### L UPUSRF #### [facility] [address] [place] [address] Dr. Kenneth Kaye PREG QUANT HCGon 05-23-2022 HCG QUANT 938 mIU/mL Normal [facility] Comment on above: Performed By: #### P REGQNT, TSH #### [facility] [address] [place] [address] Dr. Kenneth Kaye HCG RANGE SEE BELOW Normal [facility] Comment on above: Result Comment: 5-50 0.2-1 WEEK 50-500 1-2 WEEKS 100-5,000 2-3 WEEKS 500-10,000 3-4 WEEKS 1,000-50,000 4-5 WEEKS 10,000-100,000 5-6 WEEKS 15,000-200,000 6-8 WEEKS 10,000-100,000 2-3 MONTHS Performed By: #### P REGQNT, TSH #### [facility] [address] [place] [address] Dr. Kenneth Kaye TSHon 05-23-2022 TSH 1.712 uIU/mL Normal 0.358-3.740 [facility] Comment on above: Performed By: #### P REGQNT, TSH #### [facility] [address] [place] [address] Dr. Kenneth Kaye HCG-BETA SUBUNIT QUANTon hCG,Beta Subunit,Qnt,Serum 1530 mIU/mL Normal [facility] Comment on above: Result Comment: Fema le (Non-) 0 - 5 (Postmenopausal) 0 - 8 . Female () Weeks of Gestation 3 6 - 71 4 10 - 750 5 359 - 2342 6 257 - 27442 7 [phone] 10 [phone] 12 [phone] 14 47814 - [phone] 15 [id number] - [phone] 16 1882 - [phone] 17 [phone] - [phone] 18 6524 - [phone] Sonia ECLIA methodology Performed By: #### H CGSUB #### [facility] [address] [place] [address] Dr. Kenneth Kaye US PREG TVon 05-15-2022 [...] OTIS NGUYEN Date: 2022-05-15 16:56 Normal [facility] Serum or plasma beta choriog onadotropin measurement (units/volume)Ordered By: Bessie Apodaca on 05-12-2022 HCG.beta subunit Qn 1720.00 m[IU]/mL [facility] Comment on above: Approximate Approxim ate hCG Gestational Age Range (mIU/ml) (weeks) 0.2-1 5-50 1-2 50-500 2-3 100-5,000 3-4 500-10,000 4-5 1,000-50,000 5-6 10,000-100,000 6-8 15,000-200,000 8-12 10,000-100,000 Albumin [Mass/volume] in Ser um or PlasmaOrdered By: Russ Persaud on 05-09-2022 Albumin [Mass/Vol] 4.1 g/dL 3.2-5.5 [facility] Basophils Auto (Bld) [#/Vol] Ordered By: Russ Persaud on 05-09-2022 Basophils (Bld) [#/Vol] 0.0 10*3/uL 0.0-0.2 [facility] Basophils/100 WBC Auto (Bld) Ordered By: Russ Persaud on 05-09-2022 Basophils/100 WBC (Bld) 0.4 % . F [facility] Bilirubin Test strip Ql (U)O rdered By: Russ Persaud on 05-09-2022 Bilirubin Ql (U) Negative Negative [facility] Blood hemoglobin measurement (mass/volume)Ordered By: Russ Persaud on 05-09-2022 Hemoglobin (Bld) [Mass/Vol] 13.4 g/dL 11.8-15.4 [facility] Blood leukocytes automated c ount (number/volume)Ordered By: Russ Persaud on 05-09-2022 WBC (Bld) [#/Vol] 11.5 10*3/uL 4.5-11.0 [facility] Color Auto (U)Ordered By: Danny Persaud on 05-09-2022 Color (U) Yellow Yellow [facility] Creatinine and Glomerular fi ltration rate.predicted panel (S/P/Bld)Ordered By: Russ Persaud on 05-09-2022 Creatinine [Mass/Vol] 0.61 mg/dL 0.44-1.03 [facility] Eosinophils Auto (Bld) [#/Vo l]Ordered By: Russ Persaud on 05-09-2022 Eosinophils (Bld) [#/Vol] 0.1 10*3/uL 0.0-0.45 [facility] Eosinophils/100 WBC Auto (Bl d)Ordered By: Russ Persaud on 05-09-2022 Eosinophils/100 WBC (Bld) 1.2 % . [facility] Erythrocyte distribution wid th Auto (RBC) [Ratio]Ordered By: Russ Persaud on 05-09-2022 Erythrocyte distribution width (RBC) [Ratio] 13.2 % 11.9-15.3 [facility] Estimated glomerular filtrat ion rate (GFR) non- AmericanOrdered By: Russ Persaud on 05-09-2022 GFR/1.73 sq M.predicted among non-blacks MDRD (S/P/Bld) [Vol rate/Area] > 60 mL/Min [facility] Globulin Calc (S) [Mass/Vol] Ordered By: Russ Persaud on 05-09-2022 Globulin (S) [Mass/Vol] 2.8 g/dL F [facility] HCG ( test) IA.rapi d Ql (U)Ordered By: Russ Persaud on 05-09-2022 HCG ( test) Ql (U) Positive [facility] Hematocrit Auto (Bld) [Volum e fraction]Ordered By: Russ Persaud on 05-09-2022 Hematocrit (Bld) [Volume fraction] 40.0 % 34.0-46.4 [facility] Ketones Auto test strip (U) [Mass/Vol]Ordered By: Russ Persaud on 05-09-2022 Ketones (U) [Mass/Vol] Negative Negative Fi [facility] - Hematology and Cell countsOrdered By: Russ Persaud on 05-09-2022 Nucleated RBC/100 WBC (Bld) [Ratio] 0.1 % 0-0.5 [facility] Lymphocytes Auto (Bld) [#/Vo l]Ordered By: Russ Persaud on 05-09-2022 Lymphocytes (Bld) [#/Vol] 3.3 10*3/uL 1.00-4.8 [facility] Lymphocytes/100 WBC Auto (Bl d)Ordered By: Russ Persaud on 05-09-2022 Lymphocytes/100 WBC (Bld) 28.8 % . [facility] MCH Auto (RBC) [Entitic mass ]Ordered By: Russ Persaud on 05-09-2022 MCH (RBC) [Entitic mass] 29.5 pg 24.7-34.3 [facility] MCHC Auto (RBC) [Mass/Vol]Or dered By: Russ Persaud on 05-09-2022 MCHC (RBC) [Mass/Vol] 33.5 g/dL 32.0-35.0 [facility] MCV Auto (RBC) [Entitic vol] Ordered By: Russ Persaud on 05-09-2022 MCV (RBC) [Entitic vol] 88.1 fL 80-100 F [facility] Monocytes Auto (Bld) [#/Vol] Ordered By: Russ Persaud on 05-09-2022 Monocytes (Bld) [#/Vol] 0.6 10*3/uL 0.0-0.8 [facility] Monocytes/100 WBC Auto (Bld) Ordered By: Russ Persaud on 05-09-2022 Monocytes/100 WBC (Bld) 5.5 % . F [facility] Neutrophils Auto (Bld) [#/Vo l]Ordered By: Russ Persaud on 05-09-2022 Neutrophils (Bld) [#/Vol] 7.4 10*3/uL 1.8-7.7 [facility] Neutrophils/100 WBC Auto (Bl d)Ordered By: Russ Persaud on 05-09-2022 Neutrophils/100 WBC (Bld) 64.1 % . [facility] Nitrite Test strip Ql (U)Ord ered By: Russ Persaud on 05-09-2022 Nitrite Ql (U) Negative Negative [facility] No Panel InformationOrdered By: Russ Persaud on 05-09-2022 Estimated GFR () > 60 mL/Min [facility] Comment on above: GFR estimated refere nce range: According to KDOQI guidelines, <60 ml/min/1.73m2 is sufficient to diagnose a patient with chronic kidney disease. Pharmacy Creatinine Clearance (Chem 135.64 [facility] Platelet mean volume Auto (B ld) [Entitic vol]Ordered By: Russ Persaud on 05-09-2022 Platelet mean volume (Bld) [Entitic vol] 9.3 fL 6.3-10.7 [facility] Platelets Auto (Bld) [#/Vol] Ordered By: Russ Persaud on 05-09-2022 Platelets (Bld) [#/Vol] 236 10*3/uL 150-450 [facility] Protein Auto test strip (U) [Mass/Vol]Ordered By: Russ Persaud on 05-09-2022 Protein (U) [Mass/Vol] Negative Negative [facility] Protein [Mass/volume] in Ser um or PlasmaOrdered By: Russ Persaud on 05-09-2022 Protein [Mass/Vol] 6.9 g/dL 6.1-7.9 [facility] RBC Auto (Bld) [#/Vol]Ordere d By: Russ Persaud on 05-09-2022 RBC (Bld) [#/Vol] 4.54 10*6/uL 3.60-5.00 [facility] Serum or plasma alanine pan otransferase measurement without P-5'-P (enzymatic activiOrdered By: Russ Persaud on 05-09-2022 ALT No additional P-5'-P [Catalytic activity/Vol] 13 U/L 10-60 [facility] Serum or plasma albumin/glob ulin mass ratioOrdered By: Russ Persaud on 05-09-2022 Albumin/Globulin [Mass ratio] 1.5 {ratio} [facility] Serum or plasma alkaline erwin sphatase measurement (enzymatic activity/volume)Ordered By: Russ Persaud on 05-09-2022 ALP [Catalytic activity/Vol] 51 U/L 32-92 [facility] Serum or plasma aspartate am inotransferase measurement (enzymatic activity/volume)Ordered By: Russ Persaud on 05-09-2022 AST [Catalytic activity/Vol] 19 U/L 10-42 [facility] Serum or plasma beta choriog onadotropin measurement (units/volume)Ordered By: Russ Persaud on 05-09-2022 HCG.beta subunit Qn 1593.00 m[IU]/mL [facility] Comment on above: Approximate Approxim ate hCG Gestational Age Range (mIU/ml) (weeks) 0.2-1 5-50 1-2 50-500 2-3 100-5,000 3-4 500-10,000 4-5 1,000-50,000 5-6 10,000-100,000 6-8 15,000-200,000 8-12 10,000-100,000 Serum or plasma calcium daksha urement (mass/volume)Ordered By: Russ Persaud on 05-09-2022 Calcium [Mass/Vol] 9.5 mg/dL 8.2-10.2 [facility] Serum or plasma chloride brett surement (moles/volume)Ordered By: Russ Persaud on 05-09-2022 Chloride [Moles/Vol] 101 mmol/L 95-114 [facility] Serum or plasma glucose daksha urement (mass/volume)Ordered By: Russ Persaud on 05-09-2022 Glucose [Mass/Vol] 98 mg/dL 70-100 [facility] Comment on above: ADA recommended refe rence range Random Glucose Reference Range is dependent on time and content of last meal. Glucose of more than 200 mg/dL in a nonstressed, ambulatory subject supports the diagnosis of Diabetes Mellitus. Serum or plasma potassium me asurement (moles/volume)Ordered By: Russ Persaud on 05-09-2022 Potassium [Moles/Vol] 3.5 mmol/L 3.5-5.1 [facility] Serum or plasma sodium measu rement (moles/volume)Ordered By: Russ Persaud on 05-09-2022 Sodium [Moles/Vol] 136 mmol/L 136-146 [facility] Serum or plasma total biliru bin measurement (mass/volume)Ordered By: Russ Persaud on 05-09-2022 Bilirubin [Mass/Vol] 0.4 mg/dL 0.3-1.2 [facility] Serum or plasma total carbon dioxide measurement (moles/volume)Ordered By: Russ Persaud on 05-09-2022 CO2 [Moles/Vol] 24.4 mmol/L 22.0-30.0 [facility] Serum or plasma urea nitroge n measurement (mass/volume)Ordered By: Russ Persaud on 05-09-2022 Urea nitrogen [Mass/Vol] 10 mg/dL 06-09 [facility] Specific gravity Auto test s trip (U) [Rel density]Ordered By: Russ Persaud on 05-09-2022 Specific gravity (U) [Rel density] 1.026 1.001-1.030 [facility] Urine clarity by refractomet ry automatedOrdered By: Russ Persaud on 08-23-2022 Clarity Refractometry automated (U) Clear Clear [facility] Urine glucose measurement by automated test strip (mass/volume)Ordered By: Russ Persaud on 05-09-2022 Glucose Auto test strip (U) [Mass/Vol] Normal mg/dL Normal [facility] Urine hemoglobin detection b y automated test stripOrdered By: Russ Persaud on 05-09-2022 Hemoglobin Auto test strip Ql (U) Negative Negative [facility] Urine leukocyte esterase det ection by automated test stripOrdered By: Russ Persaud on 05-09-2022 Leukocyte esterase Auto test strip Ql (U) Negative Negative [facility] Urobilinogen Auto test strip (U) [Mass/Vol]Ordered By: Russ Persaud on 05-09-2022 Urobilinogen (U) [Mass/Vol] Normal mg/dL Normal [facility] pH Auto test strip (U)Ordere d By: Russ Persaud on 05-09-2022 pH (U) 6.5 [pH] 5.0-9.0 [facility] Vital Signs Date Time Vital Sign Value Performing Clinician Facility 07-16-2023 08:00-0400 Body height 162.56 cm Debra Koenig Other [employer] Other 07-16-2023 08:00-0400 Body mass index (BMI) [Ratio] 29.37 kg/m2 Debra Koenig Other [employer] Other 07-16-2023 08:00-0400 Body weight 77.61 kg Debra Koenig Other [employer] Other 07-16-2023 08:00-0400 Diastolic blood pressure 76 mm[Hg] Debra Koenig Other [employer] Other 07-16-2023 08:00-0400 Respiratory rate 18 /min Debra Koenig Other [employer] Other 07-16-2023 08:00-0400 SaO2% (BldA) [Mass fraction] 98 % Debra Koenig Other [employer] Other 07-16-2023 08:00-0400 Systolic blood pressure 128 mm[Hg] Debra Koenig Other [employer] Other 03-15-2023 08:00-0400 Body height 162.56 cm Debra Koenig Other [employer] Other 03-15-2023 08:00-0400 Body mass index (BMI) [Ratio] 28.18 kg/m2 Debra Koenig Other [employer] Other 03-15-2023 08:00-0400 Body weight 74.48 kg Debra Koenig Other [employer] Other 03-15-2023 08:00-0400 Diastolic blood pressure 72 mm[Hg] Debra Koenig Other [employer] Other 03-15-2023 08:00-0400 Respiratory rate 18 /min Debra Liberty Other [employer] Other 03-15-2023 08:00-0400 SaO2% (BldA) [Mass fraction] 99 % Debra Koenig Other [employer] Other 03-15-2023 08:00-0400 Systolic blood pressure 116 mm[Hg] Debra Koenig Other [employer] Other 01-18-2023 09:43-0400 Body height 162.56 cm PHYSICIAN NO [facility] 01-18-2023 09:43-0400 Body temperature 98.3 [degF] PHYSICIAN NO [facility] 01-18-2023 09:43-0400 Body weight 72.35 kg PHYSICIAN NO [facility] 01-18-2023 09:43-0400 Diastolic blood pressure 70 mm[Hg] PHYSICIAN NO [facility] 01-18-2023 09:43-0400 Heart rate 80 /min PHYSICIAN NO [facility] 01-18-2023 09:43-0400 Respiratory rate 18 /min PHYSICIAN NO [facility] 01-18-2023 09:43-0400 SaO2% (BldA) [Mass fraction] 99 % PHYSICIAN NO [facility] 01-18-2023 09:43-0400 Systolic blood pressure 130 mm[Hg] PHYSICIAN NO [facility] 05-12-2022 15:20-0400 Body height 162.56 cm PHYSICIAN NO [facility] 05-12-2022 15:20-0400 Body temperature 98.7 [degF] PHYSICIAN NO [facility] 05-12-2022 15:20-0400 Body weight 72.55 kg PHYSICIAN NO [facility] 05-12-2022 15:20-0400 Diastolic blood pressure 78 mm[Hg] PHYSICIAN NO [facility] 05-12-2022 15:20-0400 Heart rate 98 /min PHYSICIAN NO [facility] 05-12-2022 15:20-0400 Respiratory rate 16 /min PHYSICIAN NO [facility] 05-12-2022 15:20-0400 SaO2% (BldA) [Mass fraction] 99 % PHYSICIAN NO [facility] 05-12-2022 15:20-0400 Systolic blood pressure 115 mm[Hg] PHYSICIAN NO [facility] 05-09-2022 21:15-0400 Diastolic blood pressure 101 mm[Hg] PHYSICIAN NO [facility] 05-09-2022 21:15-0400 Heart rate 107 /min PHYSICIAN NO [facility] 05-09-2022 21:15-0400 Respiratory rate 22 /min PHYSICIAN NO [facility] 05-09-2022 21:15-0400 SaO2% (BldA) [Mass fraction] 88 % PHYSICIAN NO [facility] 05-09-2022 21:15-0400 Systolic blood pressure 204 mm[Hg] PHYSICIAN NO [facility] 05-09-2022 17:090400 Body height 162.56 cm PHYSICIAN NO [facility] 05-09-2022 17:09-0400 Body temperature 98.7 [degF] PHYSICIAN NO [facility] 05-09-2022 17:090400 Body weight 70.3 kg PHYSICIAN NO [facility] Encounters Encounter Date Encounter Type Care Provider Facility Start: 07-18-2023 End: 07-18-2023 ambulatory Debra Petty [facility] Facility:[facility] Start: 07-18-2023 End: 07-18-2023 ambulatory DO Debra Koenig Work Phone: [facility] Work Phone: Start: 07-18-2023 End: 07-18-2023 Patient encounter procedure DO Debra Koenig Work Phone: [facility] Start: 07-16-2023 End: 07-16-2023 ambulatory Debra Koenig Other [employer] Other Start: 07-16-2023 Encounter for genera l adult medical examination without abnormal findings Debra Koenig [facility] Start: 07-16-2023 Periodic preventive med est patient 18-39 yrs Debra Koenig [facility] Start: 03-15-2023 Office outpatient ne w 45 minutes Debra Koenig [facility] Start: 03-15-2023 Telephone encounter Debra Koenig [facility] Start: 03-15-2023 End: 03-15-2023 ambulatory Debra Koenig Facility:[facility] Start: 03-15-2023 End: 03-15-2023 ambulatory PHYSICIAN NO [facility] Work Phone: Start: 03-15-2023 End: 03-15-2023 Patient encounter procedure PHYSICIAN NO [facility]-Lab [facility] Start: 01-18-2023 End: 01-18-2023 Emergency department patient visit Angelito Beyer Facility:[facility] Start: 01-18-2023 End: 01-18-2023 Emergency department patient visit PHYSICIAN NO [facility]-Emergency Room Work Phone: Start: [...] 05-09-2022 Emergency department patient visit PHYSICIAN NO [facility]-Emergency Room Procedures Date Procedure Procedure Detail Performing Clinician Start: 05-09-2022 Diagnostic ultrasoun d of gravid uterus PHYSICIAN NO FAMILY Start: 05-09-2022 Transvaginal obstetr ic ultrasonography PHYSICIAN NO FAMILY Plan of Treatment Date Care Activity Detail Author Start: 05-12-2022 End: 05-12-2022 Emergency department patient visit Departed Emergency [facility]-Emergency Room Estradiol (E2) [Mass/volume] in Serum or Plasma [facility] Patient Education [facility] Work Phone: Patient referral [facility] Work Phone: Immunizations Immunization Date Immunization Notes Care Provider Fa cility NEGATED: Highlighted row has not occurred!03-15-2023 influenza, seasonal, injectable Patient Objection Debra Drummond [employer] Other Payers Date Payer Category Payer Self-pay 2023 Unknown [id number] 1995 Unknown [id number] 2.16.84 [id number] 1997 Unknown [id number] 2.16.84 [id number] 1997 Unknown [id number] 2.16.84 [id number] 1997 Unknown [id number] 2.16.84 [id number] 1997 Unknown [id number] 2.16.84 [id number] 1997 Unknown [id number] 2.16.84 [id number] 1959 Unknown [id number] Unknown [id number] 2.16.8 [id number] Unknown [id number] 2.16.8 [id number] Unknown [id number] 2.16.8 [id number] Social History Date Type Detail Facility Start: 05-12-2022 End: 01-18-2023 Tobacco smoking status NHIS Never smoked tobacco (finding) [facility] Start: 1995 Sex Assigned At Female F [facility] Sex Assigned At Sex Assigned At Bir th [employer] Other Evaluation note 07-16-2023 Note Date & [...] today Jun, Weight gain (ICD-10 - R63.5) [employer] Other Evaluation note 03-15-2023 Note Date & [...] for fatigue. 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) Recommend referral to derm for evaluation [employer] Other Evaluation note Note Date & Type Note Facility Evaluation note No assessment information availa [facility] Work Phone: Evaluation note Note Date & Type Note Facility Evaluation note No Information [employer] Other Hospital Discharge instructions Note Date & Type Note Facility Hospital Discharge instructions Additional Instructions Call your [employer] Sunday with the results If you have develop severe pain in your pelvis excessive bleeding greater than a pad an hour or any other concerns return to the ER [facility] Work Phone: Chief Complaint and Reason [...] 1 Atypical nevi (D22.9 ) Referral Organization [facility]op[facility] Referring Provider First Name Debra Referring Provider Last Name Liberty Referring Provider Specialty Family Medi cine Referred Organization [facility] Referred Provider Xiomara Butcher Referred Address ,[place],[address] Referred Provider Specialty Dermatology Referral Priority Routine General Notes Isi Elliott 01:51:04 PM >referral received and faxed Additional Source Comments Care Teams (unrecognized sec tion and content) Team Status: Inactive Member Role Status Dates PHYSICIAN NO FAMILY Primary Care Provider Active Bessie Apodaca , [employer] SAL[employer] EXECUTIVE- Emergency Provider Active Team Status: Inactive Member [...] DATE CREATED AUTHOR AUTHOR'S ORGANIZ ATION 07/19/2023 [facility] REASON FOR VISIT (unrecogniz ed section and [...] BE BASED ON THE PRIMARY CLINICAL RECORDS. [facility] [employer] [facility]. provides no warranty or guarantee of the accuracy or completeness of information in this document.
--- NOTE | 2024-01-20 11:12 | XR_ITS ---
The [address] [address] Patient Name: LIYA TOLENTINO MRN: [id number] date: 1995 Sex: F Assigned Patient Location: ER Current Patient Location: ER Accession/Order Number: [id number] Exam Date: 01/20/2024 11:22 Report Date: 01/20/2024 11:38 At the request of: LAURA MARTINEZ Procedure: XR chest 1V EXAM: Chest x-ray HISTORY: . Palpitations . COMPARISON: 10/12/2023 TECHNIQUE: Single view of the chest FINDINGS: Heart and vascularity are unremarkable. Lungs are free of focal infiltrates. Grossly no bony abnormality is appreciated. EKG leads overlie the chest. XR/XR chest 1V IMPRESSION: Heart or lung disease identified. Electronically authenticated by: IJEOMA KAN Date: 01/20/2024 11:38
--- NOTE | 2024-01-20 11:12 | ECG_ITS ---
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
--- NOTE | 2024-01-20 11:12 | ED.GENADUL1 ---
HPI HPI - General Adult General Chief complaint: Chest Pain Stated complaint: CHEST PAIN Time Seen by Provider: 01/20/24 11:11 Source: patient Mode of arrival: walk-in History of Present Illness HPI narrative: 28-year-old female presents to the emergency department for palpitations. She has been having this for about 3 days and it last about 10 seconds at a time. She describes her heart beating hard but not fast or slow. She has been under a moderate amount of stress recently, found out that she is going to be moving recently. No fever or cough or syncope. Related Data Previous Rx's ?Medication ?Instructions ?Recorded pantoprazole 20 mg tablet,delayed 20 mg PO DAILY 4 weeks #28 tabs 10/12/23 release (Protonix) Allergies Allergy/AdvReac Type Severity Reaction Status Date / Time No Known Drug Allergies Allergy Verified 10/12/23 18:04 Opioid HPI Opioid Management Most Recent Opioid Data: Last Pain Scale 5 10/12/23 18:50 Review of Systems ROS Narrative A ten point review of systems is negative except as noted above. PFSH PFSH Social History Smoking status: Never smoker Exam Narrative Exam Narrative: Nurses note and vital signs reviewed and patient is not hypoxic. General: The patient appears well and in no apparent distress. Patient is resting comfortably on cart. Skin: Warm, dry, no pallor noted. There is no rash noted. Head: Normocephalic, atraumatic Eye: Normal conjunctiva, no drainage Ears, Nose, Mouth, and Throat: oral mucosa is moist. Nares patent. Cardiovascular: Regular Rate and Rhythm Respiratory: Patient is in no distress, no accessory muscle use, lungs are clear to auscultation, no wheezing, rales or rhonchi Back: non-tender, no CVA tenderness bilaterally to percussion. GI: Soft and nontender Musculoskeletal: The patient has no evidence of calf tenderness, no pitting edema, symmetrical pulses noted bilaterally Neurological: A&O, normal speech Psychiatric: Cooperative Constitutional Vital Signs, click to edit/add: Last Vital Signs Temp 98.4 F 01/20/24 10:36 Pulse 84 01/20/24 10:36 BP 138/77 01/20/24 10:36 Pulse Ox 99 01/20/24 10:36 O2 Del Method Room Air 01/20/24 10:36 Course Vital Signs Vital signs: Vital Signs Temperature 98.4 F 01/20/24 10:36 Pulse Rate 84 01/20/24 10:36 Blood Pressure 138/77 01/20/24 10:36 Pulse Oximetry 99 01/20/24 10:36 Oxygen Delivery Method Room Air 01/20/24 10:36 Temperature 98.4 F 01/20/24 10:36 Pulse Rate 84 01/20/24 10:36 Blood Pressure 138/77 01/20/24 10:36 Pulse Oximetry 99 01/20/24 10:36 Oxygen Delivery Method Room Air 01/20/24 10:36 Medical Decision Making MDM Narrative Medical decision making narrative: She has had no dysrhythmias here and her workup is negative. I suspect that her symptoms may be due to stress. Treatment diagnosis and follow-up were discussed with the patient. Lab Data Lab results reviewed: Yes I reviewed the patient's lab results Labs: Lab Results 01/20/24 Range/Units 11:30 WBC 7.4 (4.0-11.0) 10^3/uL RBC 4.30 (4.20-5.40) 10^6/uL Hgb 12.7 (12.0-16.0) g/dL Hct 38.6 (36.0-48.0) % MCV 89.8 (81.0-99.0) fL MCH 29.5 (26.7-34.0) pg MCHC 32.9 (29.9-35.2) g/dL RDW 13.0 (11.0-15.0) % Plt Count 237 (150-450) 10^3/uL MPV 10.7 (9.5-13.5) fL Neut % (Auto) 57.8 (43.0-75.0) % Lymph % (Auto) 34.6 (20.5-60.0) % Dodge % (Auto) 5.8 (1.7-12.0) % Eos % (Auto) 0.9 (0.9-7.0) % Baso % (Auto) 0.5 (0.2-2.0) % Neut # (Auto) 4.3 (1.4-6.5) 10^3/uL Lymph # (Auto) 2.6 (1.2-3.8) 10^3/uL Dodge # (Auto) 0.4 (0.3-0.8) 10^3/uL Eos # (Auto) 0.1 (0.0-0.7) 10^3/uL Baso # (Auto) 0.0 (0.0-0.1) 10^3/uL Abs Immat Gran (auto) 0.03 (0.00-0.03) 10^3/uL Imm/Tot Granulo (auto) 0.4 (0.0-0.5) % Sodium 140 (136-145) mmol/L Potassium 4.2 (3.5-5.1) mmol/L Chloride 105 (98-107) mmol/L Carbon Dioxide 26.2 (21.0-32.0) mmol/L Anion Gap 13.0 BUN 7.0 (7.0-18.0) mg/dL Creatinine 0.63 (0.55-1.02) mg/dL Est GFR ( Amer) >60 (>=60) Est GFR (Non-Af Amer) >60 (>=60) BUN/Creatinine Ratio 11.1 Glucose 94 (74-106) mg/dL Calcium 9.7 (8.5-10.1) mg/dL Serum HCG, Qual Negative (NEGATIVE) Imaging Data Chest x-ray: Radiologist's impression: ITS Impressions Chest X-Ray 01/20/24 11:12 IMPRESSION: Heart or lung disease identified. Electronically authenticated by: IJEOMA KAN Date: 01/20/2024 11:38 ECG Data Attestation: I personally reviewed and interpreted this ECG as follows: (EKG on my interpretation shows sinus rhythm with a rate of 79 and no acute changes.) Discharge Plan Discharge Stand Alone Forms: Portal Instructions Chief Complaint: Chest Pain Clinical Impression: Palpitations Patient Disposition: Home, Self-Care Time of Disposition Decision: 11:52 Condition: Good Mode of Transportation: Private Vehicle Prescriptions / Home Meds: No Action pantoprazole [Protonix] 20 mg tablet,delayed release (DR/EC) 20 mg PO DAILY 28 Days Qty: 28 0RF Print Language: Northern Irish Instructions: Heart Palpitations (ED) Referrals: Physician,Non-Staff, MD [Primary Care Provider] - 1 week
[2024-01-20 11:40] LABS: Basophils Percent Auto 0.5 % (0.2-2.0); Eosinophils Absolute Auto 0.1 10^3/uL (0.0-0.7); Eosinophils Percent Auto 0.9 % (0.9-7.0); Hematocrit 38.6 % (36.0-48.0); Hemoglobin 12.7 g/dL (12.0-16.0); Immature Granulocytes Abs Auto 0.03 10^3/uL (0.00-0.03); Immature Granulocytes Pct Auto 0.4 % (0.0-0.5); Lymphocytes Absolute Auto 2.6 10^3/uL (1.2-3.8); Lymphocytes Percent Auto 34.6 % (20.5-60.0); Mean Corpuscular HGB Conc 32.9 g/dL (29.9-35.2); Mean Corpuscular Hemoglobin 29.5 pg (26.7-34.0); Mean Corpuscular Volume 89.8 fL (81.0-99.0); Mean Platelet Volume 10.7 fL (9.5-13.5); Monocytes Absolute Auto 0.4 10^3/uL (0.3-0.8); Monocytes Percent Auto 5.8 % (1.7-12.0); Neutrophils Absolute Auto 4.3 10^3/uL (1.4-6.5); Neutrophils Percent Auto 57.8 % (43.0-75.0); Platelet Count 237 10^3/uL (150-450); White Blood Count 7.4 10^3/uL (4.0-11.0)
[2024-01-20 11:46] LABS: BUN Creatinine Ratio 11.1; Calcium 9.7 mg/dL (8.5-10.1); Carbon Dioxide 26.2 mmol/L (21.0-32.0); Chloride 105 mmol/L (98-107); Estimated GFR (African America >60 (>=60); Estimated GFR (Non-African Ame >60 (>=60); Glucose 94 mg/dL (74-106); Potassium 4.2 mmol/L (3.5-5.1); Sodium 140 mmol/L (136-145)
[2024-01-20 11:51] LABS: HCG Qualitative NEGATIVE (NEGATIVE)
== END 2024-01-20 12:02 | disposition home or self-care (01) ==
PROVIDERS: Emergency Provider Emergency Medicine
DX: R00.2 Palpitations (principal); Z79.899 Other long term (current) drug therapy
CPT/HCPCS: 36415; 71045; 80048; 84703; 85025; 93005; 99285